=== PATIENT | female | born 1950 | race Caucasian/White ===

== ENCOUNTER 2016-07-14 16:44 | Inpatient (IN) | payer OTHER ==
[~2016-07-14] VITALS: Ht 167.6 cm; Wt 119.0 kg
[~2016-07-14 16:44] MED LIST: ALPRAZOLAM0.5 M3 PO; AUGMENTIN 875 M1 TAB PO; BACTRIM DS 8001 TAB PO; PRAVASTATIN SOD40 MG PO; SYNTHROID0.175 MG PO
[2016-07-14] MEDS ORDERED: SYNTHROID200 MCG PO (16:52)
[2016-07-14] MEDS ORDERED: ALPRAZOLAM1 M2 PO (16:52)
--- NOTE | 2016-07-14 16:52 | ED CRITICAL CARE ---
History of Present Illness General Chief Complaint: General Adult Stated Complaint: BIBA FOR SOB Source: EMS Exam Limitations: not alert/orientated Vital Signs & Intake/Output Vital Signs & Intake/Output Vital Signs Date Time Temp Pulse Resp B/P Pulse O2 O2 Flow FiO2 Ox Delivery Rate 07/19 1655 98.3 81 20 128/72 93 07/19 1549 94 Nasal 2.0L Cannula 07/19 1358 78 136/72 07/19 0808 98.5 76 20 146/72 99 Room Air 07/19 0800 94 Nasal 3.0L Cannula 07/19 0604 160/96 07/19 0001 97.4 78 20 120/70 95 Nasal 3.0L Cannula 07/19 0000 Nasal 3.0L Cannula 07/18 2101 140/82 ED Intake and Output 07/19 0000 07/18 1200 Intake Total 482 320 Output Total 175 375 Balance 307 -55 Intake, IV 82 80 Intake, Oral 400 240 Output, Urine 175 375 Allergies Coded Allergies: NO KNOWN ALLERGIES (07/29/12) Reconcile Medications Alprazolam 1 MG TABLET 1 TAB PO BID ANXIETY (Reported) Levothyroxine Sodium (Synthroid) 175 MCG TABLET 175 MCG PO DAILY AC THYROID ( Reported) Pravastatin Sodium 40 MG TABLET 1 TAB PO DAILY CHOLESTEROL (Reported) Triage Nurses Notes Reviewed? yes Onset: Abrupt Duration: SINCE LAST NIGHT Injury Environment: home Severity: severe Associated Symptoms: FEVER, CONFUSION, LETHARGY HPI: This is a 59-year-old female with history of hypothyroidism, sleep apnea who presents by EMS from home for chief complaint of lethargy and high fever. According to the last night when he came home he found her lying in bed and stated that some of the brought her home from work because she had the "flu ". She felt warm last night and then wanted to go to sleep. This morning he states she drank a glass of water went back to bed. He checked on her. Throughout the day but just prior to arrival he went to check on her and she felt very warm wasn't responsive to verbal stimuli. He states that she wasn't opening her eyes when he called her. No known sick contacts. Only has a history of hypothyroidism. No history of coronary disease. She has a history of right ankle ORIF in 2008 after which she has been suffering from chronic wound infection. He states that usually there is a slight amount of erythema around the open area but no history of cellulitis. Patient presents with farhan right lower extremity cellulitis. Past History Travel History Traveled to [place] past 21 day No Medical History Any Pertinent Medical History? see below for history Endocrine: hypothyroidism Surgical History Surgical History: RIGHT ANKLE/RIGHT LEG Psychosocial History Who do you live with Spouse Services at Home None What is your primary language Marshallese Family History Hx Contributory? No Review of Systems Review of Systems Constitutional: Reports: see HPI (UNABLE TO GIVE HISTORY), fever, malaise, weakness. Physical Exam Physical Exam General Appearance: lethargic, severe distress, obese Head: atraumatic Eyes: Bilateral: PERRL. Ears, Nose, Throat, Mouth: DRY MUCUS MEMBRANES Neck: normal inspection Respiratory: accessory muscle use, rhonchi, respiratory distress, TACHYPNEIC Cardiovascular: tachycardia Peripheral Pulses: 1+ radial (R), 1+ radial (L) Gastrointestinal: soft, non-tender, OBESE Extremities: RIGHT LOWER EXTREMITY CELLULITIS, RIGHT LATERAL ANKLE OPEN WOUND Neurologic/Psych: no motor/sensory deficits (OBTUNDED) Skin: HOT/DRY Core Measures ACS in differential dx? No CVA/TIA Diagnosis: No Severe Sepsis Present: Yes BC x2: Yes Lactic Acid x2: Yes IV ABX Broad Spectrum: Yes NS/LR Started: Yes Septic Shock Present: No Progress Differential Diagnoses I considered the following diagnoses in my evaluation of the patient: [SEPSIS, BACTEREMIA, CELLULITIS, OSTEOMYELITIS, INFECTED HARDWARE, INFLUENZA, PNEUMONIA] Plan of Care: Orders Procedure Date/time Status BASIC ELECTROLYTES PLUS BUN&CR 07/20 0600 Active Nursing Misc 07/19 UNK Active Current Medications Sig/Melisa Start time Last Medication Dose Stop Time Status Admin Nystatin 1 IZZY BID PRN 07/15 0900 AC (Mycostatin) Laboratory Tests 07/19/16 0650: Anion Gap 15, Estimated GFR > 60, BUN/Creatinine Ratio 40.0 H, CBC w Diff NO MAN DIFF REQ, RBC 4.59, MCV 88.5, MCH 29.6, RDW 13.0, MPV 9.4, Gran % 76.2 H, Lymphocytes % 12.7 L, Monocytes % 10.6 H, Eosinophils % 0.4, Basophils % 0.1, Absolute Granulocytes 7.4 H, Absolute Lymphocytes 1.2, Absolute Monocytes 1.0 H, Absolute Eosinophils 0, Absolute Basophils 0, PUBS MCHC 33.5 LABS, CULTURES, IV TYLENOL, COOLING BLANKET, CXR, DOMINGUEZ CATHETER, BROAD SPECTRUM ABX, ABG ORDERED. 6:41 PM More alert at this time. She is awake and alert and oriented 3. Saturating 92 % on 50% Venti. Blood pressure is now 103/64. Fifth and sixth normal saline bolus ordered. Minimal urine output in the Dominguez bag which is dark. CT scans are pending. Chest x-ray is negative for infiltrate. Patient will require ICU monitoring. (SARI CHASE,LORETTA) Diagnostic Imaging: Viewed by Me: Radiology Read, CT Scan. Discussed w/RAD: Radiology Read, CT Scan. Radiology Impression: PATIENT: VIGNESH MEJIA PRESENT AGE: 65 PATIENT ACCOUNT NO: [id number] : 49 LOCATION: [facility] ORDERING PHYSICIAN: LORETTA GUO MD SERVICE DATE: 07/14/16 EXAM TYPE: CAT - CT ABD & PELVIS W IV CONTRAST; CT CHEST W IV CONTRAST EXAMINATION: CT CHEST ABDOMEN PELVIS WITH CONTRAST CLINICAL INFORMATION: Fever. Elevated LFTs COMPARISON: None. TECHNIQUE: Multidetector volumetric CT imaging of the chest abdomen pelvis obtained after the administration of 95 mL of Optiray 320 intravenous contrast without immediate adverse reactions. Axial MIP volume rendering provided. Sagittal and coronal reformatted images were obtained. DLP: 1406 mGy-cm. FINDINGS: CHEST: LUNGS: There is bibasilar airspace disease most consistent with dependent atelectasis. MEDIASTINUM: The mediastinum is normal. Central vascular structures are unremarkable. No hilar or mediastinal lymphadenopathy. PERICARDIUM/PLEURA: Trace layering pleural effusions bilaterally. Moderate coronary atherosclerosis. CHEST WALL/AXILLA: Unremarkable. ABDOMEN/PELVIS: LIVER, GALLBLADDER, BILIARY TREE: Changes of diffuse hepatic steatosis. No focal lesion. Gallstones without acute inflammatory changes within the gallbladder lumen. PANCREAS: Unremarkable. SPLEEN: Unremarkable. ADRENAL GLANDS: Unremarkable. KIDNEYS AND URETERS: The kidneys are normal in size, shape , and attenuation. No hydronephrosis or hydroureter or calculi seen. No perinephric stranding. Incidental exophytic cyst right kidney laterally measuring approximately 2 cm. BLADDER: Dominguez catheter decompresses the bladder. GASTROINTESTINAL TRACT: The small and large bowel are unremarkable. The appendix is unremarkable. ABDOMINAL WALL: No hernia is demonstrated. LYMPH NODES: Mildly enlarged bilateral inguinal lymph nodes. VASCULAR: Right-sided iliac stent in place. It appears patent. PELVIC VISCERA: Prominent fundus of the uterus favoring a small fibroid. OSSEOUS STRUCTURES: Unremarkable. IMPRESSION: 1. No focal abnormality to explain patient's symptoms. No biliary or bowel pathology. Bibasilar airspace disease favoring atelectasis although early pneumonitis is not excluded. Correlate clinically. 2. Incidental gallstones. DICTATED BY: VANGIE BRITT MD DATE/TIME DICTATED:07/14/161848 USER EXPERIENCE DEVELOPER:PROMISE DATE/ TIME TRANSCRIBED:07/14/161848 CONFIDENTIAL, DO NOT COPY WITHOUT APPROPRIATE AUTHORIZATION. <Electronically signed in Other Vendor System> SIGNED BY: VANGIE BRITT MD 07/14/161902 CXR Impression: PATIENT: VIGNESH MEJIA PRESENT AGE: 65 PATIENT ACCOUNT NO: [id number] : 49 LOCATION: [facility] ORDERING PHYSICIAN: LORETTA GUO MD SERVICE DATE: 07/14/16 EXAM TYPE: RAD - XRY -PORTABLE CHEST XRAY; [id number], RIGHT EXAMINATION: XRY-PORTABLE CHEST XRAY, [id number], RIGHT CLINICAL INFORMATION: Fever, lethargy, hypoxia. Right leg cellulitis. Previous ORIF, right ankle. COMPARISON: Portable chest x- ray done 09/11/2008. TECHNIQUE: AP portable semierect view of the chest and 4 views of the right leg. FINDINGS: Chest: The patient could not hold her breath for the exposure. The prominent cardiac silhouette is unchanged. The lungs are essentially clear. Eventration of the right hemidiaphragm is present as before. Right leg: Most of the superficial cellulitis appears to involve the distal right leg and the soft tissues of the plantar aspect of the right foot. There is also soft tissue swelling of the proximal right leg anterior to the tibial tuberosity. No acute bone or joint abnormalities are seen. There is partial visualization of a healed fracture of the distal right fibula. IMPRESSION: 1. No acute bone or joint disease. Soft tissue swelling of portions of the right leg as described. 2. No definite acute disease in the chest. DICTATED BY: LASHAWN BUTTERFIELD MD DATE/TIME DICTATED:07/14/161817 USER EXPERIENCE DEVELOPER:PROMISE DATE/ TIME TRANSCRIBED:07/14/161817 CONFIDENTIAL, DO NOT COPY WITHOUT APPROPRIATE AUTHORIZATION. <Electronically signed in Other Vendor System> SIGNED BY: LASHAWN BUTTERFIELD MD 07/14/16 1828 Initial ED EKG: SINUS TACHYCARDIA, ARTIFACT Rhythm Strip: sinus tachycardia ED Sepsis Exam Date of Focused Sepsis Exam: 07/14/16 Time of Focused Sepsis Exam: 1841 Sepsis Cardiac Exam: Tachycardia Sepsis Resp Exam: Rales Sepsis Cap Refill Exam: >2 sec Sepsis Peripheral Pulse Exam: Weak Sepsis Peripheral Pulse Location: Radial Sepsis Skin Color Exam: Flushed Skin Temp/Moisture Exam: Warm/Excessively Dry Departure Departure Time of Disposition: 1856 Disposition: STILL A PATIENT Condition: Guarded Clinical Impression Primary Impression: Sepsis Secondary Impressions: Cellulitis, Hypoxia Referrals: MUNIRA MONTANO MD (PCP/Family) Departure Forms: Customer Survey General Discharge Information Admission Note Spoke With: CROW OGLESBY MDDafne Documentation of Exam: Documentation of any treatments & extenuating circumstances including Concerns Regarding Discharge (functional status, medication knowledge or non-compliance, living conditions, etc.) that warrant an admission rather than observation: [ICU MONITOR, IV ABX, MONITOR I/O, fluid resuscitation, follow-up blood and urine cultures, wound care evaluation, consider orthopedic evaluation for possible infected hardware, CPAP PLACEMENT ] Critical Care Note Critical Care Note Critical Care Time: 75-104 min BLOOD CULTURE 07/14 1648 Active TROPONIN LEVEL 07/14 1648 Active LACTIC ACID 07/14 1648 Active COMPREHENSIVE METABOLIC PANEL 07/14 1648 Active CBC WITHOUT DIFFERENTIAL 07/14 1648 Complete B-TYPE NATRIURETIC PEP (BNP) 07/14 1648 Active EKG 07/14 1648 Active US-EXT BILAT VENOUS DOPPLER 07/14 UNK Active SWALLOW EVALUATION 07/14 UNK Active TRC EVALUATION (GEN) 07/14 UNK Complete THERAPIST ORDERS 07/14 UNK Complete OXYGEN SETUP (GEN) 07/14 UNK Complete House Staff 07/14 UNK Active Lab Add-on Test 07/14 UNK Active Wound Care/Dressing 07/14 UNK Active VTE Mechanical Prophylaxis 07/14 UNK Active Vital Signs 07/14 UNK Active Seizure Precautions 07/14 UNK Active Precautions 07/14 UNK Active Isolation 07/14 UNK Active Intake & Output 07/14 UNK Active PHARMACY COMMUNICATION FORM 07/14 UNK Active PHYSICIAN CONSULT 07/14 K Active Current Medications Sig/Melisa Start time Last Medication Dose Stop Time Status Admin Pravastatin Sodium 40 MG 1700 07/15 1700 CAN (Pravachol) Pravastatin Sodium 40 MG 1700 07/15 1700 AC (Pravachol) Aspirin 81 MG DAILY 07/15 1000 CAN (Aspirin) Levothyroxine Sodium 88 MCG DAILY AC 07/15 0700 AC (Synthroid) Metronidazole 500 MG IQ8 07/15 0000 CAN (Flagyl) N/A 1 UNIT (No Carrier) Acetaminophen 1,000 MG Q6P PRN 07/14 2014 AC (Ofirmev) N/A 1 UNIT (No Carrier) Laboratory Tests 07/15/16 0625: pH 7.25 *L, pCO2 44, pO2 82, HCO3 19 L, ABG O2 Sat (Measured) 95.0 L, P-50 ( Temp Corrected) Y, Carboxyhemoglobin 0.5 L, O2 Concentration % 100%, Temperature 98.0, O2 Delivery Method NRB, Phlebotomy Draw Site LEFT RADIAL 07/15/16 0410: Anion Gap 15, Estimated GFR > 60, Glucose 126 H, Calcium 7.6 L, Phosphorus 3.5 , Magnesium 1.9, Total Bilirubin 1.2, AST 220 H, ALT 97 H, Troponin I 0.05, Albumin 3.3 L, Triglycerides 120, Cholesterol 121, LDL Cholesterol, Calc 46 L, HDL Cholesterol 51, Cholesterol/HDL Ratio 2, CBC w Diff MAN DIFF ORDERED, RBC 4.86, MCV 89.6, MCH 30.0, RDW 13.0, MPV 8.9, Gran % 95.5 H, Lymphocytes % 1.8 L, Monocytes % 2.7, Eosinophils % 0, Basophils % 0 L, Absolute Granulocytes 24.8 H, Segmented Neutrophils 79 H, Band Neutrophils 17 H, Absolute Lymphocytes 0.5 L, Lymphocytes 3 L, Monocytes 1 L, Absolute Monocytes 0.7 H, Absolute Eosinophils 0, Absolute Basophils 0, Platelet Estimate ADEQUATE, Polychromasia 1+, Ovalocytes FEW, PUBS MCHC 33.5, Fld Total RBCs Counted 100 07/14/16 2310: Urine Opiates Screen < 100.00, Methadone Screen < 40, Barbiturate Screen < 60, Ur Phencyclidine Scrn < 6.00, Amphetamines Screen < 100, U Benzodiazepines Scrn < 85, Urine Cocaine Screen < 50, Urine Cannabis Screen < 5.00 07/14/16 2300: Troponin I Cancelled 07/14/16 2200: Lactic Acid 1.0 07/14/16 2200: Anion Gap 15, Estimated GFR > 60, Glucose 175 H, Calcium 7.2 L, Phosphorus 4.5 , Magnesium 1.6, Total Bilirubin 1.5 H, AST 161 H, ALT 75 H, Troponin I 0.09, Albumin 3.2 L, Prolactin 5.0, Urinalysis LIGHT H, Urine Color YEL, Urine Clarity HAZY H, Urine pH 5.5, Ur Specific [place] 1.025, Urine Protein 100 H, Urine Ketones NEG, Urine Nitrite NEG, Urine Bilirubin NEG@ICTO, Urine Urobilinogen 0.2, Ur Leukocyte Esterase NEG, Ur Microscopic SEDIMENT EXAMINED, Urine RBC >75 H, Urine WBC 3-5 H, Ur Epithelial Cells MOD H, Hyaline Casts 1- 3 H, Urine Mucus FEW, Urine Hemoglobin LARGE H, Urine Glucose NEG 07/14/16 1712: TSH Cancelled, Free T4 Cancelled 07/14/16 1700: Anion Gap 17 H, Estimated GFR 55 L, BUN/Creatinine Ratio 23.0, Glucose 169 H, Lactic Acid 1.9, Calcium 8.9, Total Bilirubin 1.7 H, Direct Bilirubin 0.9 H, AST 119 H, ALT 72 H, Alkaline Phosphatase 90, Troponin I 0.13 *H, Pro-B- Natriuretic Pept 3370 H, Total Protein 6.4, Albumin 3.6, Globulin 2.8, Albumin/ Globulin Ratio 1.3, TSH 2.480, Free T4 1.49, PT 15.6 H, INR 1.49 H, APTT 33, CBC w Diff MAN DIFF ORDERED, RBC 4.76, MCV 87.2, MCH 29.9, RDW 12.4, MPV 9.1, Gran % 93.3 H, Lymphocytes % 3.3 L, Monocytes % 3.3, Eosinophils % 0, Basophils % 0.1, Absolute Granulocytes 22.1 H, Segmented Neutrophils 82 H, Band Neutrophils 14 H, Absolute Lymphocytes 0.8 L, Lymphocytes 2 L, Monocytes 2, Absolute Monocytes 0.8 H, Absolute Eosinophils 0, Absolute Basophils 0, Platelet Estimate ADEQUATE, Normocytic RBCs VERIFIED, Normochromic RBCs VERIFIED , PUBS MCHC 34.2, Hepatitis A IgM Ab Pending, Hep Bs Antigen Pending, Hep B Core IgM Ab Conf Pending, Hepatitis C Antibody Pending 07/14/16 1645: pH 7.44, pCO2 29 L, pO2 92, HCO3 19 L, ABG O2 Sat (Measured) 94.0 L, P-50 ( Temp Corrected) Y, Carboxyhemoglobin 0.9 L, O2 Concentration % 100%, Temperature 105.7 H, O2 Delivery Method NRB, Phlebotomy Draw Site RIGHT RADIAL Microbiology 07/14 2309 URINE ROUT: Legionella Antigen - COMP 07/14 2309 URINE ROUT: Streptococcus pneumoniae Antigen (M - COMP 07/14 2199 URINE ROUT: Urine Culture - RECD 07/14 2108 LOWER RESP: Respiratory Culture - COLB 07/14 2108 LOWER RESP: Gram Stain - COLB 07/14 2054 UPPER RESP: Surveillance Culture - RECD 07/14 2054 GI: Surveillance Culture - RECD 07/14 1929 STOOL: Clostridium difficile Toxin A & B - RECD 07/14 1929 STOOL: Stool Culture - RECD 07/14 1714 BLOOD: Blood Culture - RECD 07/14 1699 BLOOD: Blood Culture - RECD 6:41 PM More alert at this time. She is awake and alert and oriented 3. Saturating 92 % on 50% Venti. Blood pressure is now 103/64. Fifth and sixth normal saline bolus ordered. Minimal urine output in the Dominguez bag which is dark. CT scans are pending. Chest x-ray is negative for infiltrate. Patient will require ICU monitoring. (SARI CHASE,LORETTA) Diagnostic Imaging: Viewed by Me: Radiology Read, CT Scan. Discussed w/RAD: Radiology Read, CT Scan. Radiology Impression: PATIENT: VIGNESH MEJIA PRESENT AGE: 65 PATIENT ACCOUNT NO: [id number] : 49 LOCATION: [facility] ORDERING PHYSICIAN: LORETTA GUO MD SERVICE DATE: 07/14/16 EXAM TYPE: CAT - CT ABD & PELVIS W IV CONTRAST; CT CHEST W IV CONTRAST EXAMINATION: CT CHEST ABDOMEN PELVIS WITH CONTRAST CLINICAL INFORMATION: Fever. Elevated LFTs COMPARISON: None. TECHNIQUE: Multidetector volumetric CT imaging of the chest abdomen pelvis obtained after the administration of 95 mL of Optiray 320 intravenous contrast without immediate adverse reactions. Axial MIP volume rendering provided. Sagittal and coronal reformatted images were obtained. DLP: 1406 mGy-cm. FINDINGS: CHEST: LUNGS: There is bibasilar airspace disease most consistent with dependent atelectasis. MEDIASTINUM: The mediastinum is normal. Central vascular structures are unremarkable. No hilar or mediastinal lymphadenopathy. PERICARDIUM/PLEURA: Trace layering pleural effusions bilaterally. Moderate coronary atherosclerosis. CHEST WALL/AXILLA: Unremarkable. ABDOMEN/PELVIS: LIVER, GALLBLADDER, BILIARY TREE: Changes of diffuse hepatic steatosis. No focal lesion. Gallstones without acute inflammatory changes within the gallbladder lumen. PANCREAS: Unremarkable. SPLEEN: Unremarkable. ADRENAL GLANDS: Unremarkable. KIDNEYS AND URETERS: The kidneys are normal in size, shape , and attenuation. No hydronephrosis or hydroureter or calculi seen. No perinephric stranding. Incidental exophytic cyst right kidney laterally measuring approximately 2 cm. BLADDER: Dominguez catheter decompresses the bladder. GASTROINTESTINAL TRACT: The small and large bowel are unremarkable. The appendix is unremarkable. ABDOMINAL WALL: No hernia is demonstrated. LYMPH NODES: Mildly enlarged bilateral inguinal lymph nodes. VASCULAR: Right-sided iliac stent in place. It appears patent. PELVIC VISCERA: Prominent fundus of the uterus favoring a small fibroid. OSSEOUS STRUCTURES: Unremarkable. IMPRESSION: 1. No focal abnormality to explain patient's symptoms. No biliary or bowel pathology. Bibasilar airspace disease favoring atelectasis although early pneumonitis is not excluded. Correlate clinically. 2. Incidental gallstones. DICTATED BY: VANGIE BRITT MD DATE/TIME DICTATED:07/14/161848 USER EXPERIENCE DEVELOPER:PROMISE DATE/ TIME TRANSCRIBED:07/14/161848 CONFIDENTIAL, DO NOT COPY WITHOUT APPROPRIATE AUTHORIZATION. <Electronically signed in Other Vendor System> SIGNED BY: VANGIE BRITT MD 07/14/16 190 CXR Impression: PATIENT: VIGNESH MEJIA PRESENT AGE: 65 PATIENT ACCOUNT NO: [id number] : 49 LOCATION: [facility] ORDERING PHYSICIAN: LORETTA GUO MD SERVICE DATE: 07/14/16 EXAM TYPE: RAD - XRY -PORTABLE CHEST XRAY; [id number], RIGHT EXAMINATION: XRY-PORTABLE CHEST XRAY, [id number], RIGHT CLINICAL INFORMATION: Fever, lethargy, hypoxia. Right leg cellulitis. Previous ORIF, right ankle. COMPARISON: Portable chest x- ray done 09/11/2008. TECHNIQUE: AP portable semierect view of the chest and 4 views of the right leg. FINDINGS: Chest: The patient could not hold her breath for the exposure. The prominent cardiac silhouette is unchanged. The lungs are essentially clear. Eventration of the right hemidiaphragm is present as before. Right leg: Most of the superficial cellulitis appears to involve the distal right leg and the soft tissues of the plantar aspect of the right foot. There is also soft tissue swelling of the proximal right leg anterior to the tibial tuberosity. No acute bone or joint abnormalities are seen. There is partial visualization of a healed fracture of the distal right fibula. IMPRESSION: 1. No acute bone or joint disease. Soft tissue swelling of portions of the right leg as described. 2. No definite acute disease in the chest. DICTATED BY: LASHAWN BUTTERFIELD MD DATE/TIME DICTATED:07/14/161817 USER EXPERIENCE DEVELOPER:PROMISE DATE/ TIME TRANSCRIBED:07/14/161817 CONFIDENTIAL, DO NOT COPY WITHOUT APPROPRIATE AUTHORIZATION. <Electronically signed in Other Vendor System> SIGNED BY: LASHAWN BUTTERFIELD MD 07/14/161827 Initial ED EKG: SINUS TACHYCARDIA, ARTIFACT Rhythm Strip: sinus tachycardia ED Sepsis Exam Date of Focused Sepsis Exam: 07/14/16 Time of Focused Sepsis Exam: 184 Sepsis Cardiac Exam: Tachycardia Sepsis Resp Exam: Rales Sepsis Cap Refill Exam: >2 sec Sepsis Peripheral Pulse Exam: Weak Sepsis Peripheral Pulse Location: Radial Sepsis Skin Color Exam: Flushed Skin Temp/Moisture Exam: Warm/Excessively Dry Departure Departure Time of Disposition: 1856 Disposition: STILL A PATIENT Condition: Guarded Clinical Impression Primary Impression: Sepsis Secondary Impressions: Cellulitis, Hypoxia Referrals: MUNIRA MONTANO MD (PCP/Family) Departure Forms: Customer Survey General Discharge Information Admission Note Spoke With: GRETA OGLESBY MD Documentation of Exam: Documentation of any treatments & extenuating circumstances including Concerns Regarding Discharge (functional status, medication knowledge or non-compliance, living conditions, etc.) that warrant an admission rather than observation: [ICU MONITOR, IV ABX, MONITOR I/O, fluid resuscitation, follow-up blood and urine cultures, wound care evaluation, consider orthopedic evaluation for possible infected hardware, CPAP PLACEMENT ] Critical Care Note Critical Care Note Critical Care Time: 30-74 min
[2016-07-14] MEDS ORDERED: SYNTHROID175 MCG PO (16:53)
[2016-07-14 17:43] LABS: ABSOLUTE BASOPHIL COUNT 0 /CUMM (0.0-0.2); ABSOLUTE EOSINOPHIL COUNT 0 /CUMM (0.0-0.7); ABSOLUTE GRANULOCYTE CT 22.1 /CUMM (1.4-6.5); ABSOLUTE LYMPH COUNT 0.8 /CUMM (1.2-3.4); ABSOLUTE MONOCYTE COUNT 0.8 /CUMM (0.10-0.60); BASOPHIL % 0.1 % (0.0-2.0); EOSINOPHIL % 0 % (0-5); GRANULOCYTE % 93.3 % (42.2-75.2); HEMATOCRIT 41.5 % (37-47); MEAN CORPUSCULAR HGB 29.9 PG (27.0-31.0); MEAN CORPUSCULAR HGB CONC 34.2 G/DL (33.0-37.0); MEAN CORPUSCULAR VOLUME 87.2 FL (81.0-99.0); MEAN PLATELET VOLUME 9.1 FL (7.4-10.4); PLATELET COUNT 227 /CUMM (130-400); RBC DISTRIBUTION WIDTH 12.4 % (11.5-14.5); RED BLOOD CELL CT 4.76 /CUMM (4.20-5.40); WHITE BLOOD CELL COUNT 23.7 /CUMM (4.8-10.8)
[2016-07-14 17:46] LABS: PT 15.6 SEC (9.4-12.5); PTT 33 SEC (25-37)
--- NOTE | 2016-07-14 18:28 | RADIOLOGY REPORT ---
EXAMINATION: XRY-PORTABLE CHEST XRAY, [id number], RIGHT CLINICAL INFORMATION: Fever, lethargy, hypoxia. Right leg cellulitis. Previous ORIF, right ankle. COMPARISON: Portable chest x-ray done 09/11/2008. TECHNIQUE: AP portable semierect view of the chest and 4 views of the right leg. FINDINGS: Chest: The patient could not hold her breath for the exposure. The prominent cardiac silhouette is unchanged. The lungs are essentially clear. Eventration of the right hemidiaphragm is present as before. Right leg: Most of the superficial cellulitis appears to involve the distal right leg and the soft tissues of the plantar aspect of the right foot. There is also soft tissue swelling of the proximal right leg anterior to the tibial tuberosity. No acute bone or joint abnormalities are seen. There is partial visualization of a healed fracture of the distal right fibula. IMPRESSION: 1. No acute bone or joint disease. Soft tissue swelling of portions of the right leg as described. 2. No definite acute disease in the chest.
--- NOTE | 2016-07-14 19:03 | CT SCAN REPORT ---
EXAMINATION: CT CHEST ABDOMEN PELVIS WITH CONTRAST CLINICAL INFORMATION: Fever. Elevated LFTs COMPARISON: None. TECHNIQUE: Multidetector volumetric CT imaging of the chest abdomen pelvis obtained after the administration of 95 mL of Optiray 320 intravenous contrast without immediate adverse reactions. Axial MIP volume rendering provided. Sagittal and coronal reformatted images were obtained. DLP: 1406 mGy-cm. FINDINGS: CHEST: LUNGS: There is bibasilar airspace disease most consistent with dependent atelectasis. MEDIASTINUM: The mediastinum is normal. Central vascular structures are unremarkable. No hilar or mediastinal lymphadenopathy. PERICARDIUM/PLEURA: Trace layering pleural effusions bilaterally. Moderate coronary atherosclerosis. CHEST WALL/AXILLA: Unremarkable. ABDOMEN/PELVIS: LIVER, GALLBLADDER, BILIARY TREE: Changes of diffuse hepatic steatosis. No focal lesion. Gallstones without acute inflammatory changes within the gallbladder lumen. PANCREAS: Unremarkable. SPLEEN: Unremarkable. ADRENAL GLANDS: Unremarkable. KIDNEYS AND URETERS: The kidneys are normal in size, shape, and attenuation. No hydronephrosis or hydroureter or calculi seen. No perinephric stranding. Incidental exophytic cyst right kidney laterally measuring approximately 2 cm. BLADDER: Edwards catheter decompresses the bladder. GASTROINTESTINAL TRACT: The small and large bowel are unremarkable. The appendix is unremarkable. ABDOMINAL WALL: No hernia is demonstrated. LYMPH NODES: Mildly enlarged bilateral inguinal lymph nodes. VASCULAR: Right-sided iliac stent in place. It appears patent. PELVIC VISCERA: Prominent fundus of the uterus favoring a small fibroid. OSSEOUS STRUCTURES: Unremarkable. IMPRESSION: 1. No focal abnormality to explain patient's symptoms. No biliary or bowel pathology. Bibasilar airspace disease favoring atelectasis although early pneumonitis is not excluded. Correlate clinically. 2. Incidental gallstones.
--- NOTE | 2016-07-14 19:12 | History & Physical ---
DAYRON BUENO 07/14/161907: General Information and HPI MD Statement: I have seen and personally examined VIGNESH MEJIA and documented this H&P. The patient is a 65 year old F who presented with a patient stated chief complaint of [altered mental status, lethargy]. Source of Information: family Exam Limitations: clinical condition History of Present Illness: 65-year-old female with a past medical history of anxiety, hypothyroidism, sleep apnea, chronic R LE wound 2/2 right ankle bimalleolar fracture status post ORIF in 2008 c/b osteomyelitis with removal of hardware 7 weeks post surgery (F/U with Dr. Potter), ? PVD s/p stent placement (F/U with Dr. Clay and Dr. Carrillo at [facility]) hyperlipidemia, history of Phillips's palsy was brought in by EMS from home with chief complaint of lethargy and high-grade fever. Hsitory is obtained from her . According to the , she was in her USOH until yesterday morning. When he returned from work last evening, he found her lying in bed last night saying that somebody from what brought her home because she had 'flu'. She did have subjective fevers, had a glass of water and went to sleep. She also had incraesing difficulty ambulating and was increasinglyk lethargic to the point where her had everton assist her to the restroom. This morning she continued to remian sleepy and only had a glass of water before going back to bed. Of note, patient is on CPAP at night (does not F/U with a staking technician for sleep apnea), and did not use one last night. She was breathing heavly and her initially thought taht labored breathing is because she is not using her CPAP machine. When he checked on her later this afternoon around 2:30pm, she was unresponsive to verbal stimuli, and extremely warm. She had also soiled her clothes. (Of note patient does have a hx of urinary incontinence) No seizure likel activity reported by the per se. There is no history of sick contacts, recent history of sore throat, chest pain, shortness of breath, fever, chills, nausea, vomiting, alterations in bowel movements, antibiotic use, sore throat, travel history, abdominal pain, heart burn, urinarty complaints including burning micturition or increased frequency. Patient's states thats she wears compression stockings and he did not notice the erythema on her RLE until he brought her to [facility] ED today. Patient is adopted and so no family history can be obtained. She is not allergic to nay medications that he knows of. 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 osteomyleitis (patient's reports her having PICC line placed twice last one in 2012 and she rceived 6 weeks of Abx therapy). Allergies/Medications Allergies: Coded Allergies: NO KNOWN ALLERGIES (07/29/12) Home Med list Alprazolam 1 MG TABLET 1 TAB PO BID ANXIETY (Reported) Levothyroxine Sodium (Synthroid) 175 MCG TABLET 175 MCG PO DAILY AC THYROID ( Reported) Pravastatin Sodium 40 MG TABLET 1 TAB PO DAILY CHOLESTEROL (Reported) Compliance With Home Meds: UNKNOWN Past History Travel History Traveled to [place] past 21 day No Medical History Neurological: NONE EENT: NONE Cardiovascular: HYPERTENSION Respiratory: NONE Gastrointestinal: NONE Hepatic: NONE Renal: NONE Musculoskeletal: R ANKLE ORIF Psychiatric: NONE Endocrine: hypothyroidism Blood Disorders: NONE Cancer(s): 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 Psychosocial History Where do you live? Home Who Do You Live With? spouse Services at Home: None Functional Ability ADLs Independent: dressing, eating, toileting, bathing. Ambulation: independent IADLs Independent: shopping, housework, finances, food prep, telephone, transportation , medication admin. 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 Denies: chills, diaphoresis. EENTM: Denies: visual changes. Cardiovascular: Denies: chest pain, edema, orthopena, palpitations, peripheral edema, syncope. Respiratory: Denies: cough, hemoptysis, orthopnea, short of breath, sputum production, wheezing. GI: Denies: abdominal pain, constipation, diarrhea, distention, nausea, bloody stool , vomiting. Genitourinary: Denies: discharge, dysuria, frequency, hematuria, urgency. Musculoskeletal: Reports: no symptoms. Neurological/Psychological: Reports: weakness. Denies: headache, numbness, petit mal seizures, tingling, tremors, tonic-clonic seizures, unable to move lower ext, unable to move upper ext. Exam & Diagnostic Data Last 24 Hrs of Vital Signs/I&O Vital Signs Date Time Temp Pulse Resp B/P Pulse O2 O2 Flow FiO2 Ox Delivery Rate 07/14 1903 108/66 07/14 1856 90 Venti Mask 50% 07/14 1810 101.6 100 25 90/54 92 Venti Mask 40% 07/14 1739 103.2 110 34 91/55 93 Venti Mask 35% 07/14 1700 105.7 07/14 170 90 Non 100% ReBreather 07/14 1647 105.7 124 40 105/60 86 Room Air Physical Exam General Appearance Alert, Oriented X3, Mild Distress, Moderate Distress ( respiratory distress), on a partial rebreather Skin has excoriateion of her skin near the buttock area, with skin breakdown HEENT Atraumatic, PERRLA, EOMI, dry mucous membranes Neck Supple, No JVD, No LAD Cardiovascular Regular Rate, Normal S1, Normal S2, No Murmurs Lungs bilateral wheezes, no crackles, or ronchi Abdomen Normal Bowel Sounds, Soft, No Tenderness, Pennington's negative, no CVA tenderness Neurological Normal Speech, limited Extremities has bilateral edema, and a 10cm x4 cm chronic open wound located along her rifght lateral malleolus, that has erythematous margins, with erythema extending up her calf, no tenderness to palpation, not warm to touch, not draining purulent discharge. Last 24 Hrs of Labs/Edwin: Laboratory Tests 07/14/161711: TSH Cancelled, Free T4 Cancelled 07/14/161699: Anion Gap 17 H, Estimated GFR 55 L, BUN/Creatinine Ratio 23.0, Glucose 169 H, Lactic Acid 1.9, Calcium 8.9, Total Bilirubin 1.7 H, AST 119 H, ALT 72 H, Alkaline Phosphatase 90, Troponin I 0.13 *H, Cga-[id number] Pept 3370 H, Total Protein 6.4, Albumin 3.6, Globulin 2.8, Albumin/Globulin Ratio 1.3, TSH 2.480, Free T4 1.49, PT 15.6 H, INR 1.49 H, APTT 33, CBC w Diff MAN DIFF ORDERED, RBC 4.76, MCV 87.2, MCH 29.9, RDW 12.4, MPV 9.1, Gran % 93.3 H, Lymphocytes % 3.3 L, Monocytes % 3.3, Eosinophils % 0, Basophils % 0.1, Absolute Granulocytes 22.1 H, Segmented Neutrophils 82 H, Band Neutrophils 14 H, Absolute Lymphocytes 0.8 L, Lymphocytes 2 L, Monocytes 2, Absolute Monocytes 0.8 H, Absolute Eosinophils 0, Absolute Basophils 0, Platelet Estimate ADEQUATE, Normocytic RBCs VERIFIED, Normochromic RBCs VERIFIED, PUBS MCHC 34.2 07/14/16 1645: pH 7.44, pCO2 29 L, pO2 92, HCO3 19 L, ABG O2 Sat (Measured) 94.0 L, P-50 ( Temp Corrected) Y, Carboxyhemoglobin 0.9 L, O2 Concentration % 100%, Temperature 105.7 H, O2 Delivery Method NRB, Phlebotomy Draw Site RIGHT RADIAL Microbiology 07/14 171 BLOOD: Blood Culture - RECD 07/14 170 BLOOD: Blood Culture - RECD 07/14 1647 URINE ROUT: Urine Culture - ORD 07/14 1647 STOOL: Clostridium difficile Toxin A & B - ORD 07/14 1647 STOOL: Stool Culture - ORD Diagnostic Data EKG Results Sinus tachycardia HR: 114, T wave inversions in V2-V3, normal axis, AZ: 164, QTc : 469 CXR Results SERVICE DATE: 07/14/16-1652 EXAM TYPE: RAD - XRY-PORTABLE CHEST XRAY; [id number], RIGHT EXAMINATION: XRY-PORTABLE CHEST XRAY, [id number], RIGHT CLINICAL INFORMATION: Fever, lethargy, hypoxia. Right leg cellulitis. Previous ORIF, right ankle. COMPARISON: Portable chest x-ray done 09/11/2008. TECHNIQUE: AP portable semierect view of the chest and 4 views of the right leg. FINDINGS: Chest: The patient could not hold her breath for the exposure. The prominent cardiac silhouette is unchanged. The lungs are essentially clear. Eventration of the right hemidiaphragm is present as before. Right leg: Most of the superficial cellulitis appears to involve the distal right leg and the soft tissues of the plantar aspect of the right foot. There is also soft tissue swelling of the proximal right leg anterior to the tibial tuberosity. No acute bone or joint abnormalities are seen. There is partial visualization of a healed fracture of the distal right fibula. IMPRESSION: 1. No acute bone or joint disease. Soft tissue swelling of portions of the right leg as described. 2. No definite acute disease in the chest. Other Results SERVICE DATE: 07/14/16 EXAM TYPE: CAT - CT ABD & PELVIS W IV CONTRAST; CT CHEST W IV CONTRAST EXAMINATION: CT CHEST ABDOMEN PELVIS WITH CONTRAST CLINICAL INFORMATION: Fever. Elevated LFTs COMPARISON: None. TECHNIQUE: Multidetector volumetric CT imaging of the chest abdomen pelvis obtained after the administration of 95 mL of Optiray 320 intravenous contrast without immediate adverse reactions. Axial MIP volume rendering provided. Sagittal and coronal reformatted images were obtained. DLP: 1406 mGy-cm. FINDINGS: CHEST: LUNGS: There is bibasilar airspace disease most consistent with dependent atelectasis. MEDIASTINUM: The mediastinum is normal. Central vascular structures are unremarkable. No hilar or mediastinal lymphadenopathy. PERICARDIUM/PLEURA: Trace layering pleural effusions bilaterally. Moderate coronary atherosclerosis. CHEST WALL/AXILLA: Unremarkable. ABDOMEN/PELVIS: LIVER, GALLBLADDER, BILIARY TREE: Changes of diffuse hepatic steatosis. No focal lesion. Gallstones without acute inflammatory changes within the gallbladder lumen. PANCREAS: Unremarkable. SPLEEN: Unremarkable. ADRENAL GLANDS: Unremarkable. KIDNEYS AND URETERS: The kidneys are normal in size, shape, and attenuation. No hydronephrosis or hydroureter or calculi seen. No perinephric stranding. Incidental exophytic cyst right kidney laterally measuring approximately 2 cm. BLADDER: Edwards catheter decompresses the bladder. GASTROINTESTINAL TRACT: The small and large bowel are unremarkable. The appendix is unremarkable. ABDOMINAL WALL: No hernia is demonstrated. LYMPH NODES: Mildly enlarged bilateral inguinal lymph nodes. VASCULAR: Right-sided iliac stent in place. It appears patent. PELVIC VISCERA: Prominent fundus of the uterus favoring a small fibroid. OSSEOUS STRUCTURES: Unremarkable. IMPRESSION: 1. No focal abnormality to explain patient's symptoms. No biliary or bowel pathology. Bibasilar airspace disease favoring atelectasis although early pneumonitis is not excluded. Correlate clinically. 2. Incidental gallstones. Assessment/Plan Assessment: 65-year-old female with a past medical history of anxiety, hypothyroidism, sleep apnea, right ankle bimalleolar fracture status post ORIF in 2008, hyperlipidemia , history of Phillips's palsy was brought in by EMS from home with chief complaint of lethargy and high-grade fever. Vitals on admission blood pressure 105/60, tachycardic to 124, febrile with a Tmax of 105.1 saturating 86% on room air. In the ED she was put on a Ventimask as well as given normal saline boluses 4 after which her blood pressure was 90/ 54, respiratory rate 25, pulse 100, temperature 101.6 saturating 92% on 40% of 20 mass. On physical exam she is alert and oriented x3, in [id number] respiratory distress on a partial rebreather. HEENT revealed PERRLA, dry mucous membranes. Examination of the neck did not reveal any JVD or lymphadenopathy. Cardiovascular exam revealed regular rate, normal S1, S2, no murmurs appreciated. Lungs reveal bilateral wheezes with no crackles or rhonchi. Abdominal exam was unremarkable with abdomen soft, nontender, Pennington's negative, no CVA tenderness. Neuro exam was limited however her speech was normal. Examination of the lower extremities revealed bilateral edema, a 10 cm x 4 cm chronic open wound located along her right lateral malleolus with erythematous margins and urethra, extending up to her calf no tenderness to palpation, and it was not warm to touch and not draining purulent discharge. Of note patient did have skin excoriation pressing along the cheeks of her buttocks, not draining any purulent discharge. Labs were pertinent for an H&H of 14.2/41.5, normal MCV of 87.2, leukocytosis with a white blood cell count of 23,714 bands, and a normal platelet count of 227,000. Serum chemistries revealed hyponatremia with a sodium of 136, hypokalemia with potassium of 3.4, elevated anion gap of 17, BUN 23 and a creatinine of 1.0. Serum glucose was elevated to 169. Her lactic acid was 1.9. She also had transaminitis with an AST/ALT 119/72 and a total bili elevated to 1.7. Her first set of troponin was elevated at 0.13 and BNP of 3370. TSH was within normal limits at 2.48. Coags revealed an elevated INR of 1.49. An ABG was done which revealed a pH of 7.44, PCO2 of 29, PO2 of 92 on a nonrebreather. Chest x-ray did not reveal any acute disease. X-ray of the right fibula and tibia revealed no acute bone or joint disease, soft tissue swelling of the plantar aspect of the right foot as well as soft tissue swelling of the proximal right leg anterior to the tibial tuberosity. CT abdomen and pelvis and chest was done which revealed no focal abnormality, no biliary or bowel pathology and by basilar airspace disease favoring atelectasis with incidental finding of gallstones. Assesment and Plan Admit to ICU # Sepsis 2/2 RLE cellulitis versus aspiration PNA versus biliary pathology ( given elevated direct bili and incidental finding of gallstones on CAT scan, however, her Pennington's is negative and there is no history of cholecystitis-like symptoms) versus skin excoriation on her buttock area versus - Patient already received 6 units of normal saline boluses in the ED and responded well to IV fluid resuscitation. - Her blood pressure is currently stable. Continue her on IV fluids for now to maintain mean arterial pressure of 65 mmHg. If it drops further with consider placing a central line and starting her on pressors Continue her on normal saline at 125 MLS per hour. Goal MAP of 65mmHg Follow-up blood cultures 2, lower respiratory culture, urine culture. Follow-up repeat ICU upon to further evaluate transaminitis and bilirubin level. If still elevated will consider starting her on Flagyl to provide coverage for anaerobes as the patient already received vancomycin and ceftazadime in the ER. Continue on vancomycin and ceftazidime Follow-up vascular surgery recommendations. Consult placed with Dr. Clay's office. Please place wound consult in a.m. with Dr. Jamil is the patient sees her as an outpatient. #Acute hypoxemic respiratory failure Could be secondary to aspiration pneumonia given her altered mentation. Her CT reveals bibasal airspace to be which could be atelectasis though early pneumonitis cannot be differentiated. Continue to maintain her on oxygen saturations greater than 92% Of note patient is on CPAP nocturnally but does not remember her settings. For now continue her on Ventimask Her rapid flu was negative in the ER. Follow-up lower respiratory cultures and Utox CRC consult in a.m. #SARI on nocturnal CPAP - Patient does noty remember her CPAP settings, for now will continue on non- rebreather - Maintain O2 sats > 92% #NSTEMI Most likely secondary to demand ischemia Her first set of troponin was elevated at 0.13 with slight T-wave inversions in V2 to V3. Cardiology consult has been placed with Dr. Oconnor. Follow-up cardiology recommendations Follow-up troponins and EKG at 11 PM and 5 AM Follow-up echocardiogram We'll dose her with aspirin 300 mg 1 AZ for now # Meatbolic acidosis with respiratory alkalosis - 2/2 sepsis - F/U repeat LA. - Maintain on IVF @ 125mls/hr #Transaminitis - Msot likely 2/2 sepsis vs hepatititis versus biliary pathology - F/U direct bilirubin - F/U repeat BEP @ 10:00pm - If still elevated bili, will start her on Flagyl to cover for anaerobes, and consider MRCP to r/o biliary pathology - F/U hepatitis panel. # Hypokalemia - 2/2 receiving Nebs in ER - Replete with KCl - F/U repeat BEP #Hyponatremia - Most liekly 2/2 dehydration, as she does have evidence of dry mucous membrane, is hypotensive - F/U repeat BEP @ 10:00pm #Hypothyroidism - Continue on Levothyroxine. Since she is NPO, will start her on IV Levothyroxine 88mcg daily. - Switch to oral Levo 175mcg daily obnce clears swallow eval #Hx of anxiety - Continue on Alprazolam 1mg BID PRN PO # Altered mentation - Improving, most likely 2/2 sepsis - Mainatin on aspiration precautions, and NPO for now - F/U swallow eval in AM - DVT prophylaxis - On Heparin 5000IU TID SC - Diet - NPO for now - Code Status - Full Code As Ranked By This Provider Problem List: 1. Cellulitis 2. Sepsis 3. Hypoxia Core Measures/Miscellaneous Acute Coronary Syndrome ACS Diagnosis: No Cerebrovascular Accident CVA/TIA Diagnosis: No Congestive Heart Failure CHF Diagnosis: No Venous Thromboembolism VTE Risk Factors: Age > 40 VTE Prophylaxis Ordered Inpt: Pharm- Heparin No Mech VTE prophylaxis d/t: No contraindications No VTE Pharm Prophylaxis d/t: No contraindications VTE Diagnosis: No VTE Type: NONE VTE Confirmed by (Test): NONE Severe Sepsis Severe Sepsis Present: Yes BC x2: Yes Lactic Acid x2: Yes IV ABX Broad Spectrum: Yes NS/LR Started: Yes Septic Shock Septic Shock Present: No Miscellaneous Documentation Attending Case Discussed With: Dr. Stubbs Primary Care Physician: MUNIRA MONTANO MD Patient sees these Specialists Dr. Adam, Dr. Clay, Dr. Yaakov Hoskins, Dr. 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 She returned from work yesterday thinking she had the 'flu', slept all day and did not eat much. Today, she was unresponsive when he called out her name, and was incontinent of urine and stool. Patient has a chronic RLE poorly healing ulcer in the setting of previous trimalleolar fracture of Rt ankle s/p ORIF and subsequent removal of hardware ?osteomyelitis with associated PAD s/p stent. Patient follows Dr. lCay. On arrival in ER, Temp 105.7 rectally, hypoxic to 86% RA --> 94% on 60% PRB, tachycardic, hypotensive to 90/50, unresponsive to verbal stimuli but opened eyes to sternal rub with right lower extremity noted to be erythematous beyond the chronic ulcer. BP improved after 6 L normal saline to 112/56. Patient more awake, though continues to be lethargic. In moderate distress, dry mucous membranes, capillary refill time > 2 secs, skin flushed, warm and dry, Chest b/l reduced air entry with few wheezes, Heart S1S2 regular, Abd soft, no tenderness, LE: b/l 1+ edema with chronic poorly healing wound with surrounding erythema to right leg above the lateral malleolus, erythema extends up to calf, no active discharge. Labs: WBC 23.7, bands 14, INR 1.49, Na 136, K 3.4, bicarb 21, AG 17, BUN 23, creat 1.0, lactic acid 1.9, T. bili 1.7, AST 119, ALT 72, trop 0.13, proBNP 3370 , TSH/free T4 normal. ABG 7.44/29/92/19 (respiratory alkalosis with metabolic acidosis). Rapid flu negative. CXR: neg, RLE: superficial cellulitis. CT chest/ abd/pelvis: hepatic steatosis, gallstones, no biliary dilatation, bibasilar airspace disease. EKG: Sinus tachycardia with nonspecific T changes. 1. Severe sepsis with impending shock responded to IV fluids, 2/2 RLE cellulitis (in the setting of chronic nonhealing ulcer), with acute hypoxic respiratory failure 2/2 community acquired pneumonia. Biliary source possible given transaminitis, CT only shows gallstones, no cholecystitis or biliary dilatation. Transaminitis could be 2/2 sepsis. ICU admit, panculture, empiric IV ceftaz and vanco, NPO, TRC nebs, continue IV fluid maintenance to keep MAP > 65, if further drop will obtain central line and initiate levophed. Check urinalysis and urine tox screen. Obtain Vascular and Wound consult in AM. Obtain LE dopplers in AM. Check swallow eval when patient more awake, alert. Hold xanax. 2. Elevated troponin likely demand ischemia vs. NSTEMI. Aspirin once. Trend troponin, obtain Echo and cardio consult in AM. Replete electrolytes. 3. High anion gap metabolic acidosis and transaminitis 2/2 sepsis. Lactic acid normal. Trend LFTs. 4. Elevated BUN 2/2 dehydration. DVT ppx Hep SC. Full code. Discussed in detail with patient's who was at bedside. TTS > 45 mins
[2016-07-14] MEDS ORDERED: PRAVASTATIN SOD40 M2 PO (20:13)
--- NOTE | 2016-07-14 20:17 | Admission Certification ---
Admission Certification Certification Statement - As attending physician, I certify that at the time of - admission, based on clinical presentation, severity of - symptoms, need for further diagnostic testing and - therapeutic interventions, and risk of adverse outcomes - without in-hospital treatment, in my clinical assessment, - this patient requires an acute hospital stay for a minimum - of two nights or longer. I have also considered psychsocial - factors such as support system, advanced age, financial - issues, cognitive issues, and failed out-patient treatments, - past re-admission history, safety of patient, and lack of - compliance as applicable. Specific rationale supporting this admission is: Severe sepsis with impending shock, acute hypoxic respiratory failure with right lower extremity cellulitis and community acquired pneumonia. Positive troponin likely demand ischemia.
[2016-07-14 23:00] VITALS: BP 120/58
--- NOTE | 2016-07-15 04:34 | Event Note ---
Event Note Event Note: Situation: * Increased FiO2 requirements on NRB * Increased respiratory effort on NRB Brief: * In the setting of sepsis and hypotension on admission the patient received > 6 L crystalloid resuscitation * Physical exam findings: Positive for inspiratory stridor and some crackles in the basilar regions at approx 0330hrs * BP @0430hrs 126/84 which remained stable relatiev to hypotension on admission * Maintenance fluid previously at 150/hr, decreased 75/hr and eventually stopped at 0430hrs * Physical exam findings @ 0600: increased inspiratory crackles, increased respiratory effort, scant frothy sputum from her right nostril * Urine outputs: Approximately 30-50 mL an hour most of the evening * Stat CXR: Increased interstitial markings with hazy opacities most suggestive of developing interstitial edema * AB.25/40/82/19/95% on 100% NRB * Serum bicarbonate: 21L * Lactic acid from 2200 hrs. yesterday: 1.0 A/P: * DDX #1: Pulmonary congestion secondary to aggressive fluid resuscitation. In the setting of stable blood pressure, furosemide 20 mg IV 1 with noticeable increased urine output of greater than 300 mL within 15 minutes. Patient started on BiPAP: RR 24, pressures 16/6 on 100% FiO2. Monitor blood pressure, urine output * DDX #2: Metabolic acidosis. Etiology possibly right lower extremity cellulitis , currently on ceftaz and vancomycin. However, consider GI etiology. At this time the patient is not on metronidazole. Consider ID consult * Trops trended down. Echo for the AM
[2016-07-15 06:01] LABS: ABSOLUTE BASOPHIL COUNT 0 /CUMM (0.0-0.2); ABSOLUTE EOSINOPHIL COUNT 0 /CUMM (0.0-0.7); ABSOLUTE GRANULOCYTE CT 24.8 /CUMM (1.4-6.5); ABSOLUTE LYMPH COUNT 0.5 /CUMM (1.2-3.4); ABSOLUTE MONOCYTE COUNT 0.7 /CUMM (0.10-0.60); BASOPHIL % 0 % (0.0-2.0); EOSINOPHIL % 0 % (0-5); GRANULOCYTE % 95.5 % (42.2-75.2); HEMATOCRIT 43.6 % (37-47); MEAN CORPUSCULAR HGB CONC 33.5 G/DL (33.0-37.0); MEAN CORPUSCULAR VOLUME 89.6 FL (81.0-99.0); MEAN PLATELET VOLUME 8.9 FL (7.4-10.4); PLATELET COUNT 206 /CUMM (130-400); RED BLOOD CELL CT 4.86 /CUMM (4.20-5.40)
--- NOTE | 2016-07-15 06:53 | RADIOLOGY REPORT ---
EXAMINATION: XR PORTABLE CHEST CLINICAL INFORMATION: Increased respiratory effort. Crackles. COMPARISON: 07/14/2016 TECHNIQUE: Portable view of the chest was obtained. FINDINGS: Low lung volumes. Cardiac leads overlie the chest. Increased bilateral hazy opacities with prominent interstitial markings. No pneumothorax or pleural effusion. The cardiomediastinal silhouette is unchanged. IMPRESSION: Increased interstitial markings with hazy opacities most suggestive of developing interstitial edema.
--- NOTE | 2016-07-15 07:56 | Cons- CRCU ---
BRENNAN SWANN MD 07/15/16 0752: General Information and HPI Consulting Request Date of Consult: 07/15/16 Requested By: Dr. Stubbs History of Present Illness: 65 year old woman brought in by ambulance for evaluation of altered mental status and lethargy. Collateral information obtained at time of admission was obtained from her . She was reportedly in her normal state of health until morning prior to admission and was found by her appearing ill after he returned home from work. She was reportedly febrile but stayed in bed and went to sleep. THe following morning she remained lethargic and breathing heavily. She was found unresponsive by her that afternoon for which EMS services were contacted. PMHx: SARI on CPAP, Chronic lower extremity wounds, Right ankle bimalleolar fracture s/p ORIF, OM, PVD s/p stent, Phillips's Palsy, HLD, hypothyroidism, anxiety Patient was placed on bipap upon arrival to ED. Vital signs upon intial evaluation demonstrated temp 101.6-105.7, HR 100-124, RR 25-40, BP 90-108/54-66, pO2 86-93% on 100% FiO2 via nonrebreather. Physical examination demonstrated a alert woman in moderate respiratory distress with wheezing and bilateral lower extremity edema with an open erythematous wound tender to palpation without warm /drainage on her right lateral malleolus. Lab work was remarkable for WBC 23.7, BUN/Cr 23/1.0, Lactic Acid 1.9, AST/ALT 119/74, Troponin 0.13, BNP 3370, INR 1.49. ABG: pH 7.44 / CO2 29 / O2 92 / HCO3 19. EKG demonstrated Sinus tachycardia with t-wave inversion V2-V3. CXR/RLE XR were negative for acute cardiopulmonary disease but did show soft tissue swelling of RLE. CTA A/P showed gallstone. Blood/urine cultures were taken and she was given intravenous fluids and antibiotics and admitted to the ICU for further management. Today she is still maintained on bipap is alert but somnolent and forgetful. She appears to be in no acute distress. Further collateral information cannot be obtained from patient as she is still minimally altered from baseline and does not recall the events that happened. Review of system is limited as it is unclear if she understands questions, however she denies any headache, fever, chills, chest pain, palpitations, worsening shortness of breath, nausea, vomiting, or diarrhea. Allergies/Medications Allergies: Coded Allergies: NO KNOWN ALLERGIES (07/29/12) Home Med List: Alprazolam 1 MG TABLET 1 TAB PO BID ANXIETY (Reported) Levothyroxine Sodium (Synthroid) 175 MCG TABLET 175 MCG PO DAILY AC THYROID ( Reported) Pravastatin Sodium 40 MG TABLET 1 TAB PO DAILY CHOLESTEROL (Reported) Current Medications: Current Medications Sig/Melisa Start time Last Medication Dose Route Stop Time Status Admin Acetaminophen 1,000 MG Q6P PRN 07/15 1015 CAN N/A 1 UNIT IV Acetaminophen 1,000 MG Q6P PRN 07/14 2014 AC 07/15 N/A 1 UNIT IV 1025 Acetaminophen 1,000 MG ONCE ONE 07/14 1700 DC 07/14 N/A 1 UNIT IV 07/14 1714 1700 Acetaminophen 0 .STK-MED ONE 07/14 1647 DC IV Albuterol Sulfate 3 ML ONCE ONE 07/14 1845 DC 07/14 INH 07/14 1846 1856 Alprazolam 1 MG BID PRN 07/14 2030 DC PO 07/21 2029 Aspirin 81 MG DAILY 07/15 1207 AC PO Aspirin 81 MG DAILY 07/15 1000 CAN PO Aspirin 300 MG ONCE ONE 07/14 2014 DC 07/14 OH 07/14 2016 2231 Ceftazidime 1,000 MG IQ8 07/15 0000 DC 07/15 IV 0812 Ceftazidime 0 .STK-MED ONE 07/14 1719 DC .ROUTE Ceftazidime 1,000 MG ONCE ONE 07/14 1700 DC 07/14 IV 07/14 1701 1728 Furosemide 20 MG ONCE ONE 07/15 1045 DC 07/15 IV 07/15 1046 1057 Furosemide 20 MG ONCE ONE 07/15 0630 DC 07/15 IV 07/15 0631 0632 Heparin Sodium 5,000 UNIT Q8 07/14 2200 AC 07/15 (Porcine) SC 0632 Ipratropium [place] 2.5 ML ONCE ONE 07/14 1845 DC 07/14 INH 07/14 1846 1856 Ketorolac 15 MG ONCE ONE 07/14 1815 DC 07/14 Tromethamine IV 07/14 1816 1847 Ketorolac 0 .STK-MED ONE 07/14 1812 DC Tromethamine .ROUTE Levothyroxine Sodium 88 MCG DAILY AC 07/15 0700 AC 07/15 IV 1025 Metronidazole 500 MG IQ8 07/15 0000 CAN N/A 1 UNIT IV Nystatin 1 IZZY BID PRN 07/15 0900 AC TOP Potassium Chloride 10 MEQ Q1H 07/14 2115 DC 07/14 IV 07/14 2316 2337 Pravastatin Sodium 40 MG 1700 07/15 1700 CAN PO Pravastatin Sodium 40 MG 1700 07/15 1700 CAN PO Sodium Chloride 1,000 ML Q8H 07/14 2000 DC 07/14 IV 2137 Sodium Chloride 1,000 ML BOLUS ONE 07/14 1845 DC 07/14 IV 07/14 1944 1847 Sodium Chloride 1,000 ML BOLUS ONE 07/14 1845 DC 07/14 IV 07/14 1944 1847 Sodium Chloride 1,000 ML BOLUS ONE 07/14 1745 DC 07/14 IV 07/14 1844 1800 Sodium Chloride 1,000 ML BOLUS ONE 07/14 1745 DC 07/14 IV 07/14 1844 1800 Sodium Chloride 1,000 ML BOLUS ONE 07/14 1700 DC 07/14 IV 07/14 1759 1700 Sodium Chloride 1,000 ML BOLUS ONE 07/14 1700 DC 07/14 IV 07/14 1759 1700 Vancomycin HCl 1,000 MG Q12H 07/15 0500 DC 07/15 Dextrose/Water 250 ML IV 0513 Vancomycin HCl 1,000 MG Q12 07/14 2200 DC Dextrose/Water 250 ML IV Vancomycin HCl 0 .STK-MED ONE 07/14 1718 DC .ROUTE Vancomycin HCl 1,000 MG ONCE ONE 07/14 1700 DC 07/14 Dextrose/Water 250 ML IV 07/14 1759 1728 Review of Systems Review of Systems Constitutional: Reports: see HPI. 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 Psychosocial History Where Do You Live? Home Who Do You Live With? spouse Services at Home: None Smoking Status: Unknown If Ever Smoked Functional Ability ADLs Independent: dressing, eating, toileting, bathing. Ambulation: independent IADLs Independent: shopping, housework, finances, food prep, telephone, transportation , medication admin. Employment History Employment: Employed Profession/Employer: [employer] as a pay roll Exam & Diagnostic Data Last 24 Hrs of Vital Signs/I&O Vital Signs Date Time Temp Pulse Resp B/P Pulse O2 O2 Flow FiO2 Ox Delivery Rate 07/15 0903 88 97 07/15 0800 98 BIPAP 100% 07/15 08 100.7 129 34 134/82 94 BIPAP 100% 07/15 0649 133 97 07/15 0400 91 Non 100% ReBreather 07/15 0310 92 Non 100% ReBreather 07/15 0000 93 Part 60% ReBreather 07/14 2300 95.9 99 28 120/58 91 Part 60% ReBreather 07/14 2227 Part 60% ReBreather 07/14 2040 93 Part 60% ReBreather 07/14 1938 97.2 96 24 112/56 94 Non 60% ReBreather 07/14 1915 98.5 98 25 104/61 93 Non 60% ReBreather 07/14 1903 108/66 07/14 1856 90 Venti Mask 50% 07/14 1810 101.6 100 25 90/54 92 Venti Mask 40% 07/14 1739 103.2 110 34 91/55 93 Venti Mask 35% 07/14 1700 105.7 07/14 1700 90 Non 100% ReBreather 07/14 1647 105.7 124 40 105/60 86 Room Air Intake & Output 07/15 1600 07/15 0800 07/15 0000 Intake Total 734 6190 Output Total 340 310 Balance 394 5880 Intake, IV 734 6190 Intake, Oral 0 Number 1 0 Bowel Movements Output, Urine 340 310 Patient 122.98 kg 122.98 kg Weight Physical Exam Other Physical Findings: General - well-developed, obese female in mild respiratory distress HEENT - NCAT, PERRL, EOMI, anicteric sclera Cardio - S1, S2 w/o murmurs/gallops/rubs Resp -rhonchi heard in bibasilar lung talbert, w/o crackles/wheezing GI - soft, Non-tender, non-distended , Bowel sounds present Neuro - Awake and conversive but lethargic and forgetful, CN II - XII grossly intact Extremities - RLE wound wrapped in gauze without obvious drainage, surrounding erythema and warmth Last 48 Hrs of Labs/Edwin: Laboratory Tests 07/15/16 0854: pH 7.35, pCO2 34 L, pO2 134 H, HCO3 18 L, ABG O2 Sat (Measured) 98.0, P-50 ( Temp Corrected) Y, Carboxyhemoglobin 0.8 L, O2 Concentration % 100%, Temperature 100.7 H, Respiration Rate 24, O2 Delivery Method VISION, Vent Mode ST, Expiratory Pressure 6, Inspiratory Pressure 18, Phlebotomy Draw Site RIGHT RADIAL 07/15/16 0625: pH 7.25 *L, pCO2 44, pO2 82, HCO3 19 L, ABG O2 Sat (Measured) 95.0 L, P-50 ( Temp Corrected) Y, Carboxyhemoglobin 0.5 L, O2 Concentration % 100%, Temperature 98.0, O2 Delivery Method NRB, Phlebotomy Draw Site LEFT RADIAL 07/15/16 0410: Anion Gap 15, Estimated GFR > 60, Glucose 126 H, Calcium 7.6 L, Phosphorus 3.5 , Magnesium 1.9, Total Bilirubin 1.2, AST 220 H, ALT 97 H, Troponin I 0.05, Albumin 3.3 L, Triglycerides 120, Cholesterol 121, LDL Cholesterol, Calc 46 L, HDL Cholesterol 51, Cholesterol/HDL Ratio 2, CBC w Diff MAN DIFF ORDERED, RBC 4.86, MCV 89.6, MCH 30.0, RDW 13.0, MPV 8.9, Gran % 95.5 H, Lymphocytes % 1.8 L, Monocytes % 2.7, Eosinophils % 0, Basophils % 0 L, Absolute Granulocytes 24.8 H, Segmented Neutrophils 79 H, Band Neutrophils 17 H, Absolute Lymphocytes 0.5 L, Lymphocytes 3 L, Monocytes 1 L, Absolute Monocytes 0.7 H, Absolute Eosinophils 0, Absolute Basophils 0, Platelet Estimate ADEQUATE, Polychromasia 1+, Ovalocytes FEW, PUBS MCHC 33.5, Fld Total RBCs Counted 100 07/14/16 2310: Urine Opiates Screen < 100.00, Methadone Screen < 40, Barbiturate Screen < 60, Ur Phencyclidine Scrn < 6.00, Amphetamines Screen < 100, U Benzodiazepines Scrn < 85, Urine Cocaine Screen < 50, Urine Cannabis Screen < 5.00 07/14/16 2300: Troponin I Cancelled 07/14/16 2200: Lactic Acid 1.0 07/14/16 2200: Anion Gap 15, Estimated GFR > 60, Glucose 175 H, Calcium 7.2 L, Phosphorus 4.5 , Magnesium 1.6, Total Bilirubin 1.5 H, AST 161 H, ALT 75 H, Troponin I 0.09, Albumin 3.2 L, Prolactin 5.0, Urinalysis LIGHT H, Urine Color YEL, Urine Clarity HAZY H, Urine pH 5.5, Ur Specific [place] 1.025, Urine Protein 100 H, Urine Ketones NEG, Urine Nitrite NEG, Urine Bilirubin NEG@ICTO, Urine Urobilinogen 0.2, Ur Leukocyte Esterase NEG, Ur Microscopic SEDIMENT EXAMINED, Urine RBC >75 H, Urine WBC 3-5 H, Ur Epithelial Cells MOD H, Hyaline Casts 1- 3 H, Urine Mucus FEW, Urine Hemoglobin LARGE H, Urine Glucose NEG 07/14/16 1825: Virus Culture Pending 07/14/16 1712: TSH Cancelled, Free T4 Cancelled 07/14/16 1700: Anion Gap 17 H, Estimated GFR 55 L, BUN/Creatinine Ratio 23.0, Glucose 169 H, Lactic Acid 1.9, Calcium 8.9, Total Bilirubin 1.7 H, Direct Bilirubin 0.9 H, AST 119 H, ALT 72 H, Alkaline Phosphatase 90, Troponin I 0.13 *H, Pro-B- Natriuretic Pept 3370 H, Total Protein 6.4, Albumin 3.6, Globulin 2.8, Albumin/ Globulin Ratio 1.3, TSH 2.480, Free T4 1.49, PT 15.6 H, INR 1.49 H, APTT 33, CBC w Diff MAN DIFF ORDERED, RBC 4.76, MCV 87.2, MCH 29.9, RDW 12.4, MPV 9.1, Gran % 93.3 H, Lymphocytes % 3.3 L, Monocytes % 3.3, Eosinophils % 0, Basophils % 0.1, Absolute Granulocytes 22.1 H, Segmented Neutrophils 82 H, Band Neutrophils 14 H, Absolute Lymphocytes 0.8 L, Lymphocytes 2 L, Monocytes 2, Absolute Monocytes 0.8 H, Absolute Eosinophils 0, Absolute Basophils 0, Platelet Estimate ADEQUATE, Normocytic RBCs VERIFIED, Normochromic RBCs VERIFIED , PUBS MCHC 34.2, Hepatitis A IgM Ab NONREACTIVE, Hep Bs Antigen NONREACTIVE, Hep B Core IgM Ab Conf NONREACTIVE, Hepatitis C Antibody NONREACTIVE 07/14/16 1645: pH 7.44, pCO2 29 L, pO2 92, HCO3 19 L, ABG O2 Sat (Measured) 94.0 L, P-50 ( Temp Corrected) Y, Carboxyhemoglobin 0.9 L, O2 Concentration % 100%, Temperature 105.7 H, O2 Delivery Method NRB, Phlebotomy Draw Site RIGHT RADIAL Microbiology 07/14 2309 URINE ROUT: Legionella Antigen - COMP 07/14 2309 URINE ROUT: Streptococcus pneumoniae Antigen (M - COMP Assessment/Plan Impression/Plan: 65 year old woman with multiple medical problems significant for right ankle bimalleolar fracture (2008) s/p surgical pinning complicated with osteomyelitis and PVD s/p stenting with chronic lower extremity wounds brought in by ambulance for evaluation of altered mental status and respiratory distress. Problem List: -Acute hypoxic respiratory failure -Severe Sepsis -Right Lower Extremity Cellulitis -Elevated tropomoins, most likely demand ischemia -Metabolic acidosis, improving -Transaminitis Respitory/Infectious Disease: Patient with a history of obstructive sleep apnea on CPAP seen for evaluation of altered mental status. Found to be in moderate respiratory distress and hypoxic. Respiratory distress most likely due to sepsis secondary to right lower extremity cellulitis/possible osteomyelitis. Patient required 6L normal saline fluid resuscitation. -Maintain supplemental oxygen, keep above 92% -Antibiotics per ID consult -Podiatry consult -Wound Care consult -Vascular Surgery consult -Infectious Disease consult -Follow up cultures & sensitivities Cardiovascular: Patient with a history of peripheral vascular disease s/p stents. Troponins and EKG were negative time three. Echocardiogram was ordered. -Aspirin 81mg PO Daily -Lasix as tolerated for BP for relative hypervolemia -Cardiology Consult -Follow up echo Diet - NPO, swallow evaluation in morning DVT PPx - Heparing SC Code Status - FULL CODE Consult Acknowledgment - Thank you for your consult request. RYAN ALVARES MD 07/15/16 1029: Assessment/Plan Other Findings/Comments: Ryan Leos M.D. have examined this patient, reviewed available EMR data, personally reviewed images, discussed with resident/PA/POULTRY HUSBANDRY WORKER, discussed management plan with housestaff and nursing staff, discussed managment plan all of healthcare providers, discussed management plan with patient and/or family, agreed with resident/PA/POULTRY HUSBANDRY WORKER. The past history and parts of the chart have been autopopulated. Impression 65 year old woman * Dyspnea * Lethargy * Unresponsiveness, now improved * Hyperthermia * Acute hypoxemic respiratory failure * sepsis unclear etiology, possibly soft tissue infection Plan Respiratory - o2 supplementation, will need diuresis if bp ok ID - ID consultation, broad coverage, possible soft tissue infection CVS - ECHO, monitor hemodynamics Heme - monitor cbc, coags Metabolic - ins/outs, creatinine, electrolytes Alimentary - NPO Neuro - no active issues DVT prophylaxis at all times TTS 45min Consult Acknowledgment - Thank you for your consult request.
[2016-07-15 08:00] VITALS: BP 134/82
--- NOTE | 2016-07-15 10:52 | Cons- Cardiology ---
General Information and HPI Consulting Request Date of Consult: 07/15/16 Requested By: RENY CHASE,KENNYKSHMI Reason for Consult: Elevated troponin Source of Information: patient, old records History of Present Illness: This is a 65-year-old female with a past medical history of obesity, sleep apnea , venous insufficiency, reported PVD, hypothyroidism, chronic nonhealing wound, and hyperlipidemia who was brought to [facility] with a chief complaint of lethargy/altered mental status. Patient is responsive but limited historian at this time and the majority of the HPI was obtained from the medical record. Apparently the patient's noticed that she was more lethargic and also had some labored breathing. Subjective fevers the also reported. Some increased respiratory distress early this morning and was placed on BiPAP. At the time of my interview she seemed reasonably comfortable on BiPAP and denied chest pain or persistent dyspnea. She did appear mildly confused. Allergies/Medications Allergies: Coded Allergies: NO KNOWN ALLERGIES (07/29/12) Home Med List: Alprazolam 1 MG TABLET 1 TAB PO BID ANXIETY (Reported) Levothyroxine Sodium (Synthroid) 175 MCG TABLET 175 MCG PO DAILY AC THYROID ( Reported) Pravastatin Sodium 40 MG TABLET 1 TAB PO DAILY CHOLESTEROL (Reported) Current Medications: Current Medications Sig/Melisa Start time Last Medication Dose Route Stop Time Status Admin Acetaminophen 1,000 MG Q6P PRN 07/15 1015 CAN N/A 1 UNIT IV Acetaminophen 1,000 MG Q6P PRN 07/14 2014 AC 07/15 N/A 1 UNIT IV 1025 Acetaminophen 1,000 MG ONCE ONE 07/14 1700 DC 07/14 N/A 1 UNIT IV 07/14 1714 1700 Acetaminophen 0 .STK-MED ONE 07/14 1647 DC IV Albuterol Sulfate 3 ML ONCE ONE 07/14 1845 DC 07/14 INH 07/14 1846 1856 Alprazolam 1 MG BID PRN 07/14 2030 DC PO 07/21 2029 Aspirin 81 MG DAILY 07/15 1000 CAN PO Aspirin 300 MG ONCE ONE 07/14 2014 DC 07/14 AL 07/14 2016 2231 Ceftazidime 1,000 MG IQ8 07/15 0000 AC 07/15 IV 0812 Ceftazidime 0 .STK-MED ONE 07/14 1719 DC .ROUTE Ceftazidime 1,000 MG ONCE ONE 07/14 1700 DC 07/14 IV 07/14 1701 1728 Furosemide 20 MG ONCE ONE 07/15 0630 DC 07/15 IV 07/15 0631 0632 Heparin Sodium 5,000 UNIT Q8 07/14 2200 AC 07/15 (Porcine) SC 0632 Ipratropium [place] 2.5 ML ONCE ONE 07/14 1845 DC 07/14 INH 07/14 1846 1856 Ketorolac 15 MG ONCE ONE 07/14 1815 DC 07/14 Tromethamine IV 07/14 181 1847 Ketorolac 0 .STK-MED ONE 07/14 1812 DC Tromethamine .ROUTE Levothyroxine Sodium 88 MCG DAILY AC 07/15 0700 AC 07/15 IV 1025 Metronidazole 500 MG IQ8 07/15 0000 CAN N/A 1 UNIT IV Nystatin 1 IZZY BID PRN 07/15 0900 AC TOP Potassium Chloride 10 MEQ Q1H 07/14 2115 DC 07/14 IV 07/14 2316 2337 Pravastatin Sodium 40 MG 1700 07/15 1700 CAN PO Pravastatin Sodium 40 MG 1700 07/15 1700 AC PO Sodium Chloride 1,000 ML Q8H 07/14 2000 DC 07/14 IV 2137 Sodium Chloride 1,000 ML BOLUS ONE 07/14 1845 DC 07/14 IV 07/14 1944 1847 Sodium Chloride 1,000 ML BOLUS ONE 07/14 1845 DC 07/14 IV 07/14 1944 1847 Sodium Chloride 1,000 ML BOLUS ONE 07/14 1745 DC 07/14 IV 07/14 1844 1800 Sodium Chloride 1,000 ML BOLUS ONE 07/14 1745 DC 07/14 IV 07/14 1844 1800 Sodium Chloride 1,000 ML BOLUS ONE 07/14 1700 DC 07/14 IV 07/14 1759 1700 Sodium Chloride 1,000 ML BOLUS ONE 07/14 1700 DC 07/14 IV 07/14 1759 1700 Vancomycin HCl 1,000 MG Q12H 07/15 0500 AC 07/15 Dextrose/Water 250 ML IV 0513 Vancomycin HCl 1,000 MG Q12 07/14 2200 DC Dextrose/Water 250 ML IV Vancomycin HCl 0 .STK-MED ONE 07/14 1718 DC .ROUTE Vancomycin HCl 1,000 MG ONCE ONE 07/14 1700 DC 07/14 Dextrose/Water 250 ML IV 07/14 1759 1728 Review of Systems Review of Systems: Limited due to increased mental status, currently on BiPAP Past History Travel History Traveled to [place] past 21 day No Medical History Blood Transfusion Hx: No Neurological: NONE EENT: NONE Cardiovascular: HYPERTENSION Respiratory: obstructive sleep apnea Gastrointestinal: NONE Hepatic: NONE Renal: NONE Musculoskeletal: R ANKLE ORIF Psychiatric: NONE Endocrine: hypothyroidism Blood Disorders: NONE Cancer(s): NONE 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 Psychosocial History Where Do You Live? Home Who Do You Live With? spouse Services at Home: None Smoking Status: Unknown If Ever Smoked Functional Ability ADLs Independent: dressing, eating, toileting, bathing. Ambulation: independent IADLs Independent: shopping, housework, finances, food prep, telephone, transportation , medication admin. Employment History Employment: Employed Profession/Employer [employer] as a pay roll Exam & Diagnostic Data Vital Signs and I&O Vital Signs Date Time Temp Pulse Resp B/P Pulse O2 O2 Flow FiO2 Ox Delivery Rate 07/15 1033 97 BIPAP 100% 07/15 1025 101.3 07/15 0903 88 97 07/15 0800 98 BIPAP 100% 07/15 08 100.7 129 34 134/82 94 BIPAP 100% 07/15 0649 133 97 07/15 0400 91 Non 100% ReBreather 07/15 0310 92 Non 100% ReBreather 07/15 0000 93 Part 60% ReBreather 07/14 2300 95.9 99 28 120/58 91 Part 60% ReBreather 07/14 2227 Part 60% ReBreather 07/14 2040 93 Part 60% ReBreather 07/14 1938 97.2 96 24 112/56 94 Non 60% ReBreather 07/14 1915 98.5 98 25 104/61 93 Non 60% ReBreather 07/14 1903 108/66 07/14 1856 90 Venti Mask 50% 07/14 1810 101.6 100 25 90/54 92 Venti Mask 40% 07/14 1739 103.2 110 34 91/55 93 Venti Mask 35% 07/14 1700 105.7 07/14 1700 90 Non 100% ReBreather 07/14 1647 105.7 124 40 105/60 86 Room Air Intake & Output 07/15 0807/15 0000 07/14 1600 07/14 0800 07/14 0000 Intake Total 734 6190 Output Total 340 310 Balance 394 5880 Intake, IV 734 6190 Intake, Oral 0 Number 1 0 Bowel Movements Output, Urine 340 310 Patient 271 lb 271 lb Weight Physical Exam: General: no apparent distress. Obese. On BiPAP. Eyes: No obvious scleral icterus. HEENT: No jugular venous distention or abnormal jugular venous pulsations. Cardiovascular: Normal intensity S1/S2. Regular tachycardia. Respiratory: Decreased air entry bilaterally Abdomen: no guarding or rebound tenderness. Musculoskeletal: No cyanosis noted, right lower extremity bandage noted with trace edema Skin: Right lower extremity erythema noted, warm Neurologic: Limited exam Lymph: No gross lymphadenopathy. Labs/Edwin Results: Laboratory Tests 07/15 07/15 0854 0625 Blood Gas pH (7.35 - 7.45 PH) 7.35 7.25 *L pCO2 (35 - 45 TORR) 34 L 44 pO2 (80 - 100 TORR) 134 H 82 HCO3 (21 - 28 MEQ/L) 18 L 19 L ABG O2 Sat (Measured) (>96.0 %) 98.0 95.0 L P-50 (Temp Corrected) Y Y Carboxyhemoglobin (1.5 - 5.0 %) 0.8 L 0.5 L O2 Concentration % 100% 100% Temperature (97.0 - 100.0 FARH) 100.7 H 98.0 Respiration Rate (BPM) 24 O2 Delivery Method VISION NRB Vent Mode ST Expiratory Pressure (CM H2O P) 6 Inspiratory Pressure (CM H2O P) 18 Miscellaneous Phlebotomy Draw Site RIGHT RADIAL LEFT RADIAL 07/15 07/14 07/14 0410 2310 2300 Chemistry Sodium (137 - 145 mmol/L) 143 Potassium (3.5 - 5.1 mmol/L) 4.1 Chloride (98 - 107 mmol/L) 107 Carbon Dioxide (22 - 30 mmol/L) 21 L Anion Gap (5 - 16) 15 BUN (7 - 17 mg/dL) 21 H Creatinine (0.5 - 1.0 mg/dL) 0.8 Estimated GFR (>60 ml/min) > 60 Glucose (65 - 99 mg/dL) 126 H Calcium (8.4 - 10.2 mg/dL) 7.6 L Phosphorus (2.5 - 4.5 mg/dL) 3.5 Magnesium (1.6 - 2.3 mg/dL) 1.9 Total Bilirubin (0.2 - 1.3 mg/dL) 1.2 AST (14 - 36 U/L) 220 H ALT (9 - 52 U/L) 97 H Troponin I (< 0.11 ng/ml) 0.05 Cancelled Albumin (3.5 - 5.0 g/dL) 3.3 L Triglycerides (<150 mg/dL) 120 Cholesterol (<200 MG/DL) 121 LDL Cholesterol, Calc (65 - 129 mg/dL) 46 L HDL Cholesterol (40 - 60 mg/dL) 51 Cholesterol/HDL Ratio (0.00 - 4.23 %) 2 Hematology CBC w Diff MAN DIFF ORDERED WBC (4.8 - 10.8 /CUMM) 26.0 H RBC (4.20 - 5.40 /CUMM) 4.86 Hgb (12.0 - 16.0 G/DL) 14.6 Hct (37 - 47 %) 43.6 MCV (81.0 - 99.0 FL) 89.6 MCH (27.0 - 31.0 PG) 30.0 RDW (11.5 - 14.5 %) 13.0 Plt Count (130 - 400 /CUMM) 206 MPV (7.4 - 10.4 FL) 8.9 Gran % (42.2 - 75.2 %) 95.5 H Lymphocytes % (20.5 - 51.1 %) 1.8 L Monocytes % (1.7 - 9.3 %) 2.7 Eosinophils % (0 - 5 %) 0 Basophils % (0.0 - 2.0 %) 0 L Absolute Granulocytes (1.4 - 6.5 /CUMM) 24.8 H Segmented Neutrophils (42.2 - 75.2 %) 79 H Band Neutrophils (0.0 - 5.0 %) 17 H Absolute Lymphocytes (1.2 - 3.4 /CUMM) 0.5 L Lymphocytes (20.5 - 51.1 %) 3 L Monocytes (1.7 - 9.3 %) 1 L Absolute Monocytes (0.10 - 0.60 /CUMM) 0.7 H Absolute Eosinophils (0.0 - 0.7 /CUMM) 0 Absolute Basophils (0.0 - 0.2 /CUMM) 0 Platelet Estimate (ADEQUATE) ADEQUATE Polychromasia 1+ Ovalocytes FEW PUBS MCHC (33.0 - 37.0 G/DL) 33.5 Other Body Source Fld Total RBCs Counted (%) 100 Toxicology Urine Opiates Screen (>2000 NG/ML) < 100.00 Methadone Screen (>300 NG/ML) < 40 Barbiturate Screen (>200 NG/ML) < 60 Ur Phencyclidine Scrn (>25 NG/ML) < 6.00 Amphetamines Screen (>1000 NG/ML) < 100 U Benzodiazepines Scrn (>200 NG/ML) < 85 Urine Cocaine Screen (>300 NG/ML) < 50 Urine Cannabis Screen (>50 NG/ML) < 5.00 07/14 07/14 07/14 2200 2200 1825 Chemistry Sodium (137 - 145 mmol/L) 139 Potassium (3.5 - 5.1 mmol/L) 3.6 Chloride (98 - 107 mmol/L) 105 Carbon Dioxide (22 - 30 mmol/L) 19 L Anion Gap (5 - 16) 15 BUN (7 - 17 mg/dL) 20 H Creatinine (0.5 - 1.0 mg/dL) 0.8 Estimated GFR (>60 ml/min) > 60 Glucose (65 - 99 mg/dL) 175 H Lactic Acid (0.7 - 2.1 mmol/L) 1.0 Calcium (8.4 - 10.2 mg/dL) 7.2 L Phosphorus (2.5 - 4.5 mg/dL) 4.5 Magnesium (1.6 - 2.3 mg/dL) 1.6 Total Bilirubin (0.2 - 1.3 mg/dL) 1.5 H AST (14 - 36 U/L) 161 H ALT (9 - 52 U/L) 75 H Troponin I (< 0.11 ng/ml) 0.09 Albumin (3.5 - 5.0 g/dL) 3.2 L Prolactin (3.0 - 18.6 ng/mL) 5.0 Serology Virus Culture Pending Urines Urinalysis LIGHT H Urine Color (YEL,AMB,STR) YEL Urine Clarity (CLEAR) HAZY H Urine pH (5.0 - 8.0) 5.5 Ur Specific [place] (1.001 - 1.035) 1.025 Urine Protein (NEG,<30 MG/DL) 100 H Urine Ketones (NEG) NEG Urine Nitrite (NEG) NEG Urine Bilirubin (NEG) NEG@ICTO Urine Urobilinogen (0.1 - 1.0 EU/dl) 0.2 Ur Leukocyte Esterase (NEG) NEG Ur Microscopic SEDIMENT EXAMINED Urine RBC (0 - 5 /HPF) >75 H Urine WBC (0 - 2 /HPF) 3-5 H Ur Epithelial Cells (NONE,FEW) MOD H Hyaline Casts (0/LPF) 1-3 H Urine Mucus (FEW,NONE) FEW Urine Hemoglobin (NEG) LARGE H Urine Glucose (N MG/DL) NEG 07/14 07/14 1712 1700 Chemistry Sodium (137 - 145 mmol/L) 136 L Potassium (3.5 - 5.1 mmol/L) 3.4 L Chloride (98 - 107 mmol/L) 99 Carbon Dioxide (22 - 30 mmol/L) 21 L Anion Gap (5 - 16) 17 H BUN (7 - 17 mg/dL) 23 H Creatinine (0.5 - 1.0 mg/dL) 1.0 Estimated GFR (>60 ml/min) 55 L BUN/Creatinine Ratio (7 - 25 %) 23.0 Glucose (65 - 99 mg/dL) 169 H Lactic Acid (0.7 - 2.1 mmol/L) 1.9 Calcium (8.4 - 10.2 mg/dL) 8.9 Total Bilirubin (0.2 - 1.3 mg/dL) 1.7 H Direct Bilirubin (< 0.4 mg/dL) 0.9 H AST (14 - 36 U/L) 119 H ALT (9 - 52 U/L) 72 H Alkaline Phosphatase (<127 U/L) 90 Troponin I (< 0.11 ng/ml) 0.13 *H [id number] Pept (<125 pg/mL) 3370 H Total Protein (6.3 - 8.2 g/dL) 6.4 Albumin (3.5 - 5.0 g/dL) 3.6 Globulin (1.9 - 4.2 gm/dL) 2.8 Albumin/Globulin Ratio (1.1 - 2.2 %) 1.3 TSH (0.270 - 4.200 uIU/mL) Cancelled 2.480 Free T4 (0.78 - 2.44 ng/dL) Cancelled 1.49 Coagulation PT (9.4 - 12.5 SEC) 15.6 H INR (0.90 - 1.19) 1.49 H APTT (25 - 37 SEC) 33 Hematology CBC w Diff MAN DIFF ORDERED WBC (4.8 - 10.8 /CUMM) 23.7 H RBC (4.20 - 5.40 /CUMM) 4.76 Hgb (12.0 - 16.0 G/DL) 14.2 Hct (37 - 47 %) 41.5 MCV (81.0 - 99.0 FL) 87.2 MCH (27.0 - 31.0 PG) 29.9 RDW (11.5 - 14.5 %) 12.4 Plt Count (130 - 400 /CUMM) 227 MPV (7.4 - 10.4 FL) 9.1 Gran % (42.2 - 75.2 %) 93.3 H Lymphocytes % (20.5 - 51.1 %) 3.3 L Monocytes % (1.7 - 9.3 %) 3.3 Eosinophils % (0 - 5 %) 0 Basophils % (0.0 - 2.0 %) 0.1 Absolute Granulocytes (1.4 - 6.5 /CUMM) 22.1 H Segmented Neutrophils (42.2 - 75.2 %) 82 H Band Neutrophils (0.0 - 5.0 %) 14 H Absolute Lymphocytes (1.2 - 3.4 /CUMM) 0.8 L Lymphocytes (20.5 - 51.1 %) 2 L Monocytes (1.7 - 9.3 %) 2 Absolute Monocytes (0.10 - 0.60 /CUMM) 0.8 H Absolute Eosinophils (0.0 - 0.7 /CUMM) 0 Absolute Basophils (0.0 - 0.2 /CUMM) 0 Platelet Estimate (ADEQUATE) ADEQUATE Normocytic RBCs VERIFIED Normochromic RBCs VERIFIED PUBS MCHC (33.0 - 37.0 G/DL) 34.2 Serology Hepatitis A IgM Ab (NONREACTIVE) NONREACTIVE Hep Bs Antigen (NONREACTIVE) NONREACTIVE Hep B Core IgM Ab Conf (NONREACTIVE) NONREACTIVE Hepatitis C Antibody (NONREACTIVE) NONREACTIVE 07/14 215 Blood Gas pH (7.35 - 7.45 PH) 7.44 pCO2 (35 - 45 TORR) 29 L pO2 (80 - 100 TORR) 92 HCO3 (21 - 28 MEQ/L) 19 L ABG O2 Sat (Measured) (>96.0 %) 94.0 L P-50 (Temp Corrected) Y Carboxyhemoglobin (1.5 - 5.0 %) 0.9 L O2 Concentration % 100% Temperature (97.0 - 100.0 FARH) 105.7 H O2 Delivery Method NRB Miscellaneous Phlebotomy Draw Site RIGHT RADIAL Diagnostic Data EKG Results Twelve-lead ECG tracing was personally reviewed and shows sinus tachycardia 125 bpm, borderline low voltage, no obvious infarct pattern CXR Results IMPRESSION: Increased interstitial markings with hazy opacities most suggestive of developing interstitial edema. Other Results CT IMPRESSION: 1. No focal abnormality to explain patient's symptoms. No biliary or bowel pathology. Bibasilar airspace disease favoring atelectasis although early pneumonitis is not excluded. Correlate clinically. 2. Incidental gallstones. Telemetry tracings were personally reviewed and shows sinus tachycardia Assessment/Plan Assessment/Plan 1. Altered mental status likely due to sepsis 2. Respiratory insufficiency requiring BiPAP 3. History of sleep apnea 4. Minimal troponin elevation consistent with demand ischemia 5. Reported the PVD/venous insufficiency 6. Abnormal LFTs 7. Chronic lower extremity nonhealing wound 8. Sinus tachycardia Elevated troponin likely due to demand ischemia in the setting of sepsis of unclear etiology. Flu swab was negative. Agree with ID consult. No obvious CHF, can use the IV Lasix when necessary for now. She did receive a dose of IV Lasix this morning. Agree with obtaining echocardiogram. Respiratory status seems to be stable on the BiPAP. Would hold statin therapy in the setting of elevated LFTs. Would give low-dose aspirin 81 mg daily. Obtain lower extremity Dopplers. Keep on telemetry. Preet Serrato MD [facility] Consult Acknowledgment - Thank you for your consult request.
--- NOTE | 2016-07-15 10:55 | ULTRASOUND REPORT ---
EXAMINATION: US TRIPLEX LOWER EXTREMITY, BILATERAL CLINICAL INFORMATION: Bilateral lower extremity swelling and erythema. COMPARISON: None. TECHNIQUE: Color-flow triplex imaging with spectral analysis and compression Doppler were performed on the bilateral lower extremities. FINDINGS: The common femoral vein is compressible and exhibits a normal phasic waveform, bilaterally; this suggests that the iliac veins are widely patent above. Within each proximal thigh, the visualized profunda femoris vein is patent. The visualized greater saphenous vein and saphenofemoral junction are normal, bilaterally. Superficial femoral vein is patent in the proximal, mid and distal aspect of each thigh. Popliteal vein appears normal to the level of the trifurcation, bilaterally, and the visualized calf veins are unremarkable. No evidence of Cavazos's cyst. IMPRESSION: No evidence of deep vein thrombosis in either lower extremity.
--- NOTE | 2016-07-15 11:58 | Cons- Wound Care ---
General Information and HPI Consulting Request Date of Consult: 07/15/16 Requested By: JOSELINE ALVARES MD Reason for Consult: Right lateral malleolar ulcer present on admission History of Present Illness: 5-year-old woman status post distant ORIF for ankle fracture has had recurrent right lateral malleolar ulcers. 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 She has been treated with compression dressing elevation but has failed to resolve. Over the past day she's had altered mental status associated with febrile illness and rapidly progressive erythema of her right leg. She required fluid resuscitation for septic shock and now appears to be in a degree of congestive heart failure to volume resuscitation. There is a persistent right lateral malleolar ulcer which has been investigated for osteomyelitis in the past and this has been unrevealing. Allergies/Medications Allergies: Coded Allergies: NO KNOWN ALLERGIES (07/29/12) Home Med List: Alprazolam 1 MG TABLET 1 TAB PO BID ANXIETY (Reported) Levothyroxine Sodium (Synthroid) 175 MCG TABLET 175 MCG PO DAILY AC THYROID ( Reported) Pravastatin Sodium 40 MG TABLET 1 TAB PO DAILY CHOLESTEROL (Reported) Review of Systems Review of Systems: Noncontributory Past History Travel History Traveled to [place] past 21 day No Medical History Blood Transfusion Hx: No Neurological: NONE EENT: NONE Cardiovascular: HYPERTENSION Respiratory: obstructive sleep apnea Gastrointestinal: NONE Hepatic: NONE Renal: NONE Musculoskeletal: R ANKLE ORIF Psychiatric: NONE Endocrine: hypothyroidism Blood Disorders: NONE Cancer(s): NONE 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 Psychosocial History Where Do You Live? Home Who Do You Live With? spouse Services at Home: None Smoking Status: Unknown If Ever Smoked Functional Ability ADLs Independent: dressing, eating, toileting, bathing. Ambulation: independent IADLs Independent: shopping, housework, finances, food prep, telephone, transportation , medication admin. Employment History Employment: Employed Profession/Employer: [employer] as a pay roll Exam & Diagnostic Data Vital Signs and I&O Vital Signs Result Date Time Pulse Ox 97 07/15 1049 Pulse 125 07/15 1049 O2 Delivery BIPAP 07/15 1033 O2 Flow Rate 100% 07/15 1033 Temp 101.3 07/15 1025 B/P 134/82 01/11 0800 Resp 34 07/15 0800 Intake & Output 07/15 0000 07/14 1600 07/14 0800 Intake Total 6190 Output Total 310 Balance 5880 Intake, IV 6190 Number 0 Bowel Movements Output, Urine 310 Patient 271 lb Weight Patient is awake alert on BiPAP with marked facial erythema exam of her right lower extremity shows there to be significant erythema to the knee there is no blistering or crepitus over the right lateral malleolus is a 6.5 x 2.5 full- thickness ulcer with red and yellow fill there is no undermining sinus tracking or exposed bone. Assessment/Plan Impression/Plan: 65-year-old woman with chronic nonhealing right lateral malleolar ulcer thought primarily due to venous hypertension and venous insufficiency is admitted with acute cellulitis complicated by septic shock and secondary congestive heart failure due to volume resuscitation. Recommend leg elevation and wound care can be Aquacel Ag changed daily with gauze over dressing. Infectious disease consultation is pending. Repeat lateral ankle x-ray Consult Acknowledgment - Thank you for your consult request.
--- NOTE | 2016-07-15 12:00 | Cons- Vascular Surgery ---
General Information and HPI Consulting Request Date of Consult: 07/15/16 Requested By: JOSELINE ALVARES MD History of Present Illness: 65-year-old lady with multiple medical issues as well as venous insufficiency who has been followed with me and Dr. Clay at [facility] on 64 the right lateral malleolus wound. She has had a history of right ankle fracture several years ago which was complicated by an infection. She was treated with compression wrap to the right lower extremity. She was recently admitted to the hospital with fever and redness of the right leg. She has been started on antibiotics. Her leukocytosis has increased to 26 from 23 on admission. Vascular surgery service was consulted for right lower extremity wound. Allergies/Medications Allergies: Coded Allergies: NO KNOWN ALLERGIES (07/29/12) Home Med List: Alprazolam 1 MG TABLET 1 TAB PO BID ANXIETY (Reported) Levothyroxine Sodium (Synthroid) 175 MCG TABLET 175 MCG PO DAILY AC THYROID ( Reported) Pravastatin Sodium 40 MG TABLET 1 TAB PO DAILY CHOLESTEROL (Reported) Past History Medical History Blood Transfusion Hx: No Neurological: NONE EENT: NONE Cardiovascular: HYPERTENSION Respiratory: obstructive sleep apnea Gastrointestinal: NONE Hepatic: NONE Renal: NONE Musculoskeletal: R ANKLE ORIF Psychiatric: NONE Endocrine: hypothyroidism Blood Disorders: NONE Cancer(s): NONE 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 Psychosocial History Where Do You Live? Home Who Do You Live With? spouse Services at Home: None Smoking Status: Unknown If Ever Smoked Functional Ability ADLs Independent: dressing, eating, toileting, bathing. Ambulation: independent IADLs Independent: shopping, housework, finances, food prep, telephone, transportation , medication admin. Employment History Employment: Employed Profession/Employer: [employer] as a pay roll Review of Systems Review of Systems: Patient denies dizziness, cough, palpitation, diarrhea or constipation Exam & Diagnostic Data Vital Signs and I&O Vital Signs Date Time Temp Pulse Resp B/P Pulse O2 O2 Flow FiO2 Ox Delivery Rate 07/15 1049 125 97 07/15 1033 97 BIPAP 100% 07/15 1025 101.3 07/15 0903 88 97 07/15 0800 98 BIPAP 100% 07/15 08 100.7 129 34 134/82 94 BIPAP 100% 07/15 0649 133 97 01/11 0400 91 Non 100% ReBreather 07/15 0310 92 Non 100% ReBreather 07/15 0000 93 Part 60% ReBreather 07/14 2300 95.9 99 28 120/58 91 Part 60% ReBreather 07/14 2227 Part 60% ReBreather 07/14 2040 93 Part 60% ReBreather 07/14 1938 97.2 96 24 112/56 94 Non 60% ReBreather 07/14 1915 98.5 98 25 104/61 93 Non 60% ReBreather 07/14 1903 108/66 07/14 1856 90 Venti Mask 50% 07/14 1810 101.6 100 25 90/54 92 Venti Mask 40% 07/14 1739 103.2 110 34 91/55 93 Venti Mask 35% 07/14 1700 105.7 07/14 1700 90 Non 100% ReBreather 07/14 1647 105.7 124 40 105/60 86 Room Air Intake & Output 07/15 1600 07/15 0800 07/15 0000 07/14 1600 07/14 0800 07/14 0000 Intake Total 734 6190 Output Total 340 310 Balance 394 5880 Intake, IV 734 6190 Intake, Oral 0 Number 1 0 Bowel Movements Output, Urine 340 310 Patient 271 lb 271 lb Weight Physical Exam: Patient is alert and oriented 3. She is currently on CPAP machine Cardiovascular: Regular rate and rhythm Abdomen: Soft, nontender nondistended, obese Extremity: There is cellulitis of the right leg involving the foot ascending to below the knee. The right manual or wound is superficial without any gross evidence of infection or purulence. Bilateral lower extremity are otherwise well perfused Assessment/Plan Assessment/Plan 65-year-old lady with chronic venous insufficiency who was treated with compression wrap for right lateral malleolar ulcer presents with right leg cellulitis and fever. She has been started on antibiotics. The lateral malleolus wound is stable. There is cellulitis of the leg. Other sources of infection should also be be investigated as lower extremity cellulitis normally does not cause leukocytosis to the degree that has been presented. No vascular surgery intervention needed at this time. Recommendation would be to elevate the leg and continue antibiotics with supportive care She will need to follow up in the wound center once stable. Consult Acknowledgment - Thank you for your consult request. Attending MD Review Statement Attending Statement Attending MD Statement: examined this patient, discuss w/resident/PA/DROP WIRER
--- NOTE | 2016-07-15 14:42 | RADIOLOGY REPORT ---
EXAMINATION: XR ANKLE, RIGHT CLINICAL INFORMATION: Right lower extremity wound. Evaluate for fracture or osteomyelitis. Sepsis possibly secondary to right lower extremity cellulitis. History of right ankle fracture with infection. Osteomyelitis. COMPARISON: Right lower extremity dated 07/14/2016 and 06/30/2014.. TECHNIQUE: AP, lateral, and mortise views of the right ankle. FINDINGS: Mild diffuse soft tissue swelling about the ankle is seen. No acute fracture or dislocation is noted. The ankle mortise is symmetric and intact. There is focal cortical erosion seen involving the distal fibular shaft with slight expansion of the bone at this level. In the remainder of the distal fibula, model lucency is again seen, unchanged from prior exam. Findings are suspicious for osteomyelitis. IMPRESSION: Suspect osteomyelitis of the distal fibula. No acute fracture.
[2016-07-15 16:00] VITALS: BP 110/80
--- NOTE | 2016-07-15 16:06 | Cons- Infect Disease ---
General Information and HPI Consulting Request Date of Consult: 07/15/16 Requested By: JOSELINE ALVARES MD Reason for Consult: Sepsis/cellulitis right leg Source of Information: patient, family History of Present Illness: This is a 65-year-old woman with a history of obstructive sleep apnea, maintained on CPAP at night, peripheral vascular disease, status post right iliac stent, venous insufficiency, with a nonhealing ulcer of the right lateral malleolus for the past 7 years following an infection secondary to an ORIF of a bimalleolar ankle fracture requiring removal of the hardware, followed by Vascular surgery and ID at [place], with a course of antibiotics given one month prior to admission and treated with a compressive stocking, admitted on July 14 after she was found at home unresponsive with increasing lethargy beginning the day prior to admission. On admission she was found to be febrile to 105.7. O2 sat was in the 70s on room air. Laboratory data revealed a white blood cell count of 24,000, with 82 segs and 14 bands, BUN/creatinine 23 and 1.0, 1.7, AST/ ALT 119 and 72, troponin 0.13, proBNP 3370, INR 1.49. ABG 7.44/29/92 on 100% nonrebreather. Urinalysis greater than 75 RBC/3-5 WBCs. Chest x-ray was negative. X-ray of the right tibia and fibula revealed soft tissue swelling of the proximal right leg. CT of the chest, abdomen and pelvis revealed bibasilar airspace disease, suggestive of atelectasis, and incidental gallstones. Dopplers of both lower extremities were negative. She was given 6 L of fluid, begun on Vancomycin and Ceftazidime and admitted to the ICU. Overnight she became more hypoxic, with inspiratory stridor and crackles; chest x-ray revealed increased interstitial markings, suggestive of interstitial edema, and she was given Lasix with diuresis. She has improved, with respiratory status better, now on high flow oxygen, and her temperatures have decreased. Presently she offers no complaints. Allergies/Medications Allergies: Coded Allergies: NO KNOWN ALLERGIES (07/29/12) Home Med List: Alprazolam 1 MG TABLET 1 TAB PO BID ANXIETY (Reported) Levothyroxine Sodium (Synthroid) 175 MCG TABLET 175 MCG PO DAILY AC THYROID ( Reported) Pravastatin Sodium 40 MG TABLET 1 TAB PO DAILY CHOLESTEROL (Reported) Past History Travel History Traveled to [place] past 21 day No Medical History Blood Transfusion Hx: No Neurological: FIELD'S PALSY EENT: NONE Cardiovascular: hyperlipidemia, PVD, STEMI (right iliac artery), HYPERTENSION Respiratory: obstructive sleep apnea Gastrointestinal: NONE Hepatic: NONE Renal: NONE Musculoskeletal: R ANKLE ORIF Psychiatric: NONE Endocrine: hypothyroidism Blood Disorders: NONE Cancer(s): 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 Psychosocial History Where Do You Live? Home Who Do You Live With? spouse Services at Home: None Smoking Status: Unknown If Ever Smoked Functional Ability ADLs Independent: dressing, eating, toileting, bathing. Ambulation: independent IADLs Independent: shopping, housework, finances, food prep, telephone, transportation , medication admin. Employment History Employment: Employed Profession/Employer: [employer] as a pay roll Review of Systems Review of Systems All Other Systems: Reviewed and Negative Exam & Diagnostic Data Last 24 Hrs of Vital Signs/I&O Vital Signs Date Time Temp Pulse Resp B/P Pulse O2 O2 Flow FiO2 Ox Delivery Rate 07/15 1408 95 Nasal 75% Cannula 07/15 1333 106 95 07/15 1325 97.4 07/15 1200 97 BIPAP 80% 07/15 1049 125 97 07/15 1033 97 BIPAP 100% 07/15 1025 101.3 07/15 0903 88 97 07/15 0800 98 BIPAP 100% 07/15 0800 100.7 129 34 134/82 94 BIPAP 100% 07/15 0649 133 97 07/15 0400 91 Non 100% ReBreather 07/15 0310 92 Non 100% ReBreather 07/15 0000 93 Part 60% ReBreather 07/14 2300 95.9 99 28 120/58 91 Part 60% ReBreather 07/14 2227 Part 60% ReBreather 07/14 2040 93 Part 60% ReBreather 07/14 1938 97.2 96 24 112/56 94 Non 60% ReBreather 07/14 1915 98.5 98 25 104/61 93 Non 60% ReBreather 07/14 1903 108/66 07/14 1856 90 Venti Mask 50% 07/14 1810 101.6 100 25 90/54 92 Venti Mask 40% 07/14 1739 103.2 110 34 91/55 93 Venti Mask 35% 07/14 1700 105.7 07/14 1700 90 Non 100% ReBreather 07/14 1647 105.7 124 40 105/60 86 Room Air Intake & Output 07/15 1600 07/15 0800 07/15 0000 Intake Total 640 838 7189 Output Total 1800 340 310 Balance -8277 782 8242 Intake, IV 687 984 9659 Intake, Oral 0 Number 1 0 Bowel Movements Output, Urine 1800 340 310 Patient 271 lb 271 lb Weight Physical Exam Other Physical Findings: She is awake and alert in no acute distress on high flow oxygen. MAXIMUM TEMPERATURE 105.7. Skin reveals no rash. HEENT exam is negative. Neck is supple with no adenopathy. Lungs bilateral wheezes and rhonchi. Heart regular rhythm with no murmur. Abdomen is obese, soft, nontender with positive bowel sounds. Back no CVA tenderness. Extremities right leg erythema from the ankle towards the knee, warm to touch, with minimal tenderness; ulcer on the right lateral malleolus clean with no exudate; pulses 2+ and equal bilaterally. Neuro is without focality. Edwards catheter is in place. Last 24 Hours of Lab Results: Laboratory Tests 07/15 07/15 0854 0625 Blood Gas pH (7.35 - 7.45 PH) 7.35 7.25 *L pCO2 (35 - 45 TORR) 34 L 44 pO2 (80 - 100 TORR) 134 H 82 HCO3 (21 - 28 MEQ/L) 18 L 19 L ABG O2 Sat (Measured) (>96.0 %) 98.0 95.0 L P-50 (Temp Corrected) Y Y Carboxyhemoglobin (1.5 - 5.0 %) 0.8 L 0.5 L O2 Concentration % 100% 100% Temperature (97.0 - 100.0 FARH) 100.7 H 98.0 Respiration Rate (BPM) 24 O2 Delivery Method VISION NRB Vent Mode ST Expiratory Pressure (CM H2O P) 6 Inspiratory Pressure (CM H2O P) 18 Miscellaneous Phlebotomy Draw Site RIGHT RADIAL LEFT RADIAL 07/15 07/14 07/14 0410 2310 2300 Chemistry Sodium (137 - 145 mmol/L) 143 Potassium (3.5 - 5.1 mmol/L) 4.1 Chloride (98 - 107 mmol/L) 107 Carbon Dioxide (22 - 30 mmol/L) 21 L Anion Gap (5 - 16) 15 BUN (7 - 17 mg/dL) 21 H Creatinine (0.5 - 1.0 mg/dL) 0.8 Estimated GFR (>60 ml/min) > 60 Glucose (65 - 99 mg/dL) 126 H Calcium (8.4 - 10.2 mg/dL) 7.6 L Phosphorus (2.5 - 4.5 mg/dL) 3.5 Magnesium (1.6 - 2.3 mg/dL) 1.9 Total Bilirubin (0.2 - 1.3 mg/dL) 1.2 AST (14 - 36 U/L) 220 H ALT (9 - 52 U/L) 97 H Troponin I (< 0.11 ng/ml) 0.05 Cancelled Albumin (3.5 - 5.0 g/dL) 3.3 L Triglycerides (<150 mg/dL) 120 Cholesterol (<200 MG/DL) 121 LDL Cholesterol, Calc (65 - 129 mg/dL) 46 L HDL Cholesterol (40 - 60 mg/dL) 51 Cholesterol/HDL Ratio (0.00 - 4.23 %) 2 Hematology CBC w Diff MAN DIFF ORDERED WBC (4.8 - 10.8 /CUMM) 26.0 H RBC (4.20 - 5.40 /CUMM) 4.86 Hgb (12.0 - 16.0 G/DL) 14.6 Hct (37 - 47 %) 43.6 MCV (81.0 - 99.0 FL) 89.6 MCH (27.0 - 31.0 PG) 30.0 RDW (11.5 - 14.5 %) 13.0 Plt Count (130 - 400 /CUMM) 206 MPV (7.4 - 10.4 FL) 8.9 Gran % (42.2 - 75.2 %) 95.5 H Lymphocytes % (20.5 - 51.1 %) 1.8 L Monocytes % (1.7 - 9.3 %) 2.7 Eosinophils % (0 - 5 %) 0 Basophils % (0.0 - 2.0 %) 0 L Absolute Granulocytes (1.4 - 6.5 /CUMM) 24.8 H Segmented Neutrophils (42.2 - 75.2 %) 79 H Band Neutrophils (0.0 - 5.0 %) 17 H Absolute Lymphocytes (1.2 - 3.4 /CUMM) 0.5 L Lymphocytes (20.5 - 51.1 %) 3 L Monocytes (1.7 - 9.3 %) 1 L Absolute Monocytes (0.10 - 0.60 /CUMM) 0.7 H Absolute Eosinophils (0.0 - 0.7 /CUMM) 0 Absolute Basophils (0.0 - 0.2 /CUMM) 0 Platelet Estimate (ADEQUATE) ADEQUATE Polychromasia 1+ Ovalocytes FEW PUBS MCHC (33.0 - 37.0 G/DL) 33.5 Other Body Source Fld Total RBCs Counted (%) 100 Toxicology Urine Opiates Screen (>2000 NG/ML) < 100.00 Methadone Screen (>300 NG/ML) < 40 Barbiturate Screen (>200 NG/ML) < 60 Ur Phencyclidine Scrn (>25 NG/ML) < 6.00 Amphetamines Screen (>1000 NG/ML) < 100 U Benzodiazepines Scrn (>200 NG/ML) < 85 Urine Cocaine Screen (>300 NG/ML) < 50 Urine Cannabis Screen (>50 NG/ML) < 5.00 07/14 07/14 07/14 2200 2200 1825 Chemistry Sodium (137 - 145 mmol/L) 139 Potassium (3.5 - 5.1 mmol/L) 3.6 Chloride (98 - 107 mmol/L) 105 Carbon Dioxide (22 - 30 mmol/L) 19 L Anion Gap (5 - 16) 15 BUN (7 - 17 mg/dL) 20 H Creatinine (0.5 - 1.0 mg/dL) 0.8 Estimated GFR (>60 ml/min) > 60 Glucose (65 - 99 mg/dL) 175 H Lactic Acid (0.7 - 2.1 mmol/L) 1.0 Calcium (8.4 - 10.2 mg/dL) 7.2 L Phosphorus (2.5 - 4.5 mg/dL) 4.5 Magnesium (1.6 - 2.3 mg/dL) 1.6 Total Bilirubin (0.2 - 1.3 mg/dL) 1.5 H AST (14 - 36 U/L) 161 H ALT (9 - 52 U/L) 75 H Troponin I (< 0.11 ng/ml) 0.09 Albumin (3.5 - 5.0 g/dL) 3.2 L Prolactin (3.0 - 18.6 ng/mL) 5.0 Serology Virus Culture Pending Urines Urinalysis LIGHT H Urine Color (YEL,AMB,STR) YEL Urine Clarity (CLEAR) HAZY H Urine pH (5.0 - 8.0) 5.5 Ur Specific [place] (1.001 - 1.035) 1.025 Urine Protein (NEG,<30 MG/DL) 100 H Urine Ketones (NEG) NEG Urine Nitrite (NEG) NEG Urine Bilirubin (NEG) NEG@ICTO Urine Urobilinogen (0.1 - 1.0 EU/dl) 0.2 Ur Leukocyte Esterase (NEG) NEG Ur Microscopic SEDIMENT EXAMINED Urine RBC (0 - 5 /HPF) >75 H Urine WBC (0 - 2 /HPF) 3-5 H Ur Epithelial Cells (NONE,FEW) MOD H Hyaline Casts (0/LPF) 1-3 H Urine Mucus (FEW,NONE) FEW Urine Hemoglobin (NEG) LARGE H Urine Glucose (N MG/DL) NEG 07/14 07/14 1712 1700 Chemistry Sodium (137 - 145 mmol/L) 136 L Potassium (3.5 - 5.1 mmol/L) 3.4 L Chloride (98 - 107 mmol/L) 99 Carbon Dioxide (22 - 30 mmol/L) 21 L Anion Gap (5 - 16) 17 H BUN (7 - 17 mg/dL) 23 H Creatinine (0.5 - 1.0 mg/dL) 1.0 Estimated GFR (>60 ml/min) 55 L BUN/Creatinine Ratio (7 - 25 %) 23.0 Glucose (65 - 99 mg/dL) 169 H Lactic Acid (0.7 - 2.1 mmol/L) 1.9 Calcium (8.4 - 10.2 mg/dL) 8.9 Total Bilirubin (0.2 - 1.3 mg/dL) 1.7 H Direct Bilirubin (< 0.4 mg/dL) 0.9 H AST (14 - 36 U/L) 119 H ALT (9 - 52 U/L) 72 H Alkaline Phosphatase (<127 U/L) 90 Troponin I (< 0.11 ng/ml) 0.13 *H [id number]-H-[id number] Pept (<125 pg/mL) 3370 H Total Protein (6.3 - 8.2 g/dL) 6.4 Albumin (3.5 - 5.0 g/dL) 3.6 Globulin (1.9 - 4.2 gm/dL) 2.8 Albumin/Globulin Ratio (1.1 - 2.2 %) 1.3 TSH (0.270 - 4.200 uIU/mL) Cancelled 2.480 Free T4 (0.78 - 2.44 ng/dL) Cancelled 1.49 Coagulation PT (9.4 - 12.5 SEC) 15.6 H INR (0.90 - 1.19) 1.49 H APTT (25 - 37 SEC) 33 Hematology CBC w Diff MAN DIFF ORDERED WBC (4.8 - 10.8 /CUMM) 23.7 H RBC (4.20 - 5.40 /CUMM) 4.76 Hgb (12.0 - 16.0 G/DL) 14.2 Hct (37 - 47 %) 41.5 MCV (81.0 - 99.0 FL) 87.2 MCH (27.0 - 31.0 PG) 29.9 RDW (11.5 - 14.5 %) 12.4 Plt Count (130 - 400 /CUMM) 227 MPV (7.4 - 10.4 FL) 9.1 Gran % (42.2 - 75.2 %) 93.3 H Lymphocytes % (20.5 - 51.1 %) 3.3 L Monocytes % (1.7 - 9.3 %) 3.3 Eosinophils % (0 - 5 %) 0 Basophils % (0.0 - 2.0 %) 0.1 Absolute Granulocytes (1.4 - 6.5 /CUMM) 22.1 H Segmented Neutrophils (42.2 - 75.2 %) 82 H Band Neutrophils (0.0 - 5.0 %) 14 H Absolute Lymphocytes (1.2 - 3.4 /CUMM) 0.8 L Lymphocytes (20.5 - 51.1 %) 2 L Monocytes (1.7 - 9.3 %) 2 Absolute Monocytes (0.10 - 0.60 /CUMM) 0.8 H Absolute Eosinophils (0.0 - 0.7 /CUMM) 0 Absolute Basophils (0.0 - 0.2 /CUMM) 0 Platelet Estimate (ADEQUATE) ADEQUATE Normocytic RBCs VERIFIED Normochromic RBCs VERIFIED PUBS MCHC (33.0 - 37.0 G/DL) 34.2 Serology Hepatitis A IgM Ab (NONREACTIVE) NONREACTIVE Hep Bs Antigen (NONREACTIVE) NONREACTIVE Hep B Core IgM Ab Conf (NONREACTIVE) NONREACTIVE Hepatitis C Antibody (NONREACTIVE) NONREACTIVE 07/14 1645 Blood Gas pH (7.35 - 7.45 PH) 7.44 pCO2 (35 - 45 TORR) 29 L pO2 (80 - 100 TORR) 92 HCO3 (21 - 28 MEQ/L) 19 L ABG O2 Sat (Measured) (>96.0 %) 94.0 L P-50 (Temp Corrected) Y Carboxyhemoglobin (1.5 - 5.0 %) 0.9 L O2 Concentration % 100% Temperature (97.0 - 100.0 FARH) 105.7 H O2 Delivery Method NRB Miscellaneous Phlebotomy Draw Site RIGHT RADIAL Last 24 Hours of Edwin Results: Blood cultures 2 July 14 negative Rapid flu swab July 14 negative Stool culture July 14 mixed diane Stool C. difficile July 14 negative Urine culture July 14 pending Urine strep pneumo antigen and Legionella antigen July 14 negative Diagnostic Data Recent Imaging Findings: Chest x-ray July 14 negative. Chest x-ray July 15 increased interstitial markings with hazy opacities suggestive of interstitial edema X-ray of the right tibia and fibula revealed soft tissue swelling of the proximal right leg. CT of the chest, abdomen and pelvis revealed bibasilar airspace disease, suggestive of atelectasis, and incidental gallstones. Dopplers of both lower extremities negative. 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 The most likely source of her sepsis appears to be a right leg cellulitis likely related to her nonhealing right lateral malleolar ulcer, with the possible contribution of the compression stocking. Her history is consistent with underlying osteomyelitis, given the chronic, nonhealing ulcer, and this is suggested on the x-ray of the ankle; therefore a bone biopsy will need to be done to confirm this diagnosis and identify the pathogen(s) responsible for this infection. The cellulitis is most likely secondary to a beta-hemolytic strep and her antibiotics should be able to be narrowed. She does not appear to have any other obvious source of infection, with CT scan of the chest negative for pneumonia And urinalysis not suggestive of a urinary tract infection. Suggestion: 1. Podiatry evaluation 2. Elevate right leg 3. Discontinue Vancomycin and Ceftazidime 4. Begin Cefazolin 2 g IV every 8 hours Consult Acknowledgment - Thank you for your consult request.
--- NOTE | 2016-07-15 16:51 | Cons- Podiatry ---
General Information and HPI Consulting Request Date of Consult: 07/15/16 Requested By: JOSELINE ALVARES MD History of Present Illness: Vero is a 65-year-old female with a long-standing history of a nonhealing ulcer to her lateral right ankle. The patient sustained an ankle fracture in 2008 requiring open reduction and internal fixation, which subsequently became infected requiring removal of the hardware. The patient's lateral ulcer has had a waxing and waning course, with complete healing apparently 6 months ago and subsequent recurrence. The patient was brought to the hospital via ambulance yesterday after being found unresponsive. The patient did complain of flulike symptoms the day prior. The patient has been seen in the wound center and by Dr. Clay and Dr. Carrillo. Allergies/Medications Allergies: Coded Allergies: NO KNOWN ALLERGIES (07/29/12) Home Med List: Alprazolam 1 MG TABLET 1 TAB PO BID ANXIETY (Reported) Levothyroxine Sodium (Synthroid) 175 MCG TABLET 175 MCG PO DAILY AC THYROID ( Reported) Pravastatin Sodium 40 MG TABLET 1 TAB PO DAILY CHOLESTEROL (Reported) Past History Medical History Blood Transfusion Hx: No Neurological: FIELD'S PALSY EENT: NONE Cardiovascular: hyperlipidemia, PVD, STEMI (right iliac artery), HYPERTENSION Respiratory: obstructive sleep apnea Gastrointestinal: NONE Hepatic: NONE Renal: NONE Musculoskeletal: R ANKLE ORIF Psychiatric: NONE Endocrine: hypothyroidism Blood Disorders: NONE 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 Psychosocial History Where Do You Live? Home Who Do You Live With? spouse Services at Home: None Smoking Status: Unknown If Ever Smoked Functional Ability ADLs Independent: dressing, eating, toileting, bathing. Ambulation: independent IADLs Independent: shopping, housework, finances, food prep, telephone, transportation , medication admin. Employment History Employment: Employed Profession/Employer: [employer] as a pay roll Review of Systems Review of Systems: Unremarkable except for that noted in history of present illness Exam & Diagnostic Data Vital Signs and I&O Vital Signs Date Time Temp Pulse Resp B/P Pulse O2 O2 Flow FiO2 Ox Delivery Rate 07/15 1408 95 Nasal 75% Cannula 07/15 1333 106 95 07/15 1325 97.4 07/15 1200 97 BIPAP 80% 07/15 1049 125 97 07/15 1033 97 BIPAP 100% 07/15 1025 101.3 07/15 0903 88 97 07/15 0800 98 BIPAP 100% 07/15 0800 100.7 129 34 134/82 94 BIPAP 100% 07/15 0649 133 97 07/15 0400 91 Non 100% ReBreather 07/15 0310 92 Non 100% ReBreather 07/15 0000 93 Part 60% ReBreather 07/14 2300 95.9 99 28 120/58 91 Part 60% ReBreather 07/14 2227 Part 60% ReBreather 07/14 2040 93 Part 60% ReBreather 07/14 1938 97.2 96 24 112/56 94 Non 60% ReBreather 07/14 1915 98.5 98 25 104/61 93 Non 60% ReBreather 07/14 1903 108/66 07/14 1856 90 Venti Mask 50% 07/14 1810 101.6 100 25 90/54 92 Venti Mask 40% 07/14 1739 103.2 110 34 91/55 93 Venti Mask 35% 07/14 1700 105.7 07/14 1700 90 Non 100% ReBreather Intake & Output 07/15 1600 07/15 0800 07/15 0000 07/14 1600 07/14 0800 07/14 0000 Intake Total 790 905 3666 Output Total 1800 340 310 Balance -3313 500 0286 Intake, IV 672 901 8767 Intake, Oral 0 Number 1 0 Bowel Movements Output, Urine 1800 340 310 Patient 271 lb 271 lb Weight Physical Exam: Stable appearing ulcer overlying the lateral aspect of the right ankle. No probing or undermining identified. No fluctuance or crepitus noted. There is cellulitis noted about the periphery of the leg extending proximally to the region just inferior to the knee. X-rays demonstrate findings consistent with a possible fibular osteomyelitis. Assessment/Plan Assessment/Plan Sepsis and right lower extremity cellulitis. Consider an MRI to further characterize the x-ray findings and rule out a possible septic joint. For now, continue management per medicine and infectious disease. Consult Acknowledgment - Thank you for your consult request. Attending MD Review Statement Attending Statement Attending MD Statement: examined this patient
--- NOTE | 2016-07-15 18:32 | ECHOCARDIOGRAM REPORT ---
VIGNESH MEJIA Age: 65 : 1950 Gender: F Exam Date: 07/15/2016 16:29 Exam Location: [facility] Ht (in): 66 Wt (lb): 271 BSA: 2.46 BP: 134 / 82 Ordering Physician: DAYRON BUENO MD Referring Physician: Ezio Serrato M.D. Technologist: Danuta Stokes RDCS Room Number: 106 Indications: MYOCARDIAL ISCHEMIA/OR Rhythm: Sinus Technical Quality: fair FINDINGS Left Ventricle Normal global left ventricular size, wall thickness, systolic function with no obvious regional wall motion abnormalities. Normal left ventricular ejection fraction estimated at 60-65%. Right Ventricle Normal right ventricular size and function. Right Atrium Normal right atrial size. Left Atrium Normal left atrial size. Mitral Valve Mild mitral annular calcification. Trace mitral regurgitation. Aortic Valve Aortic valve not well visualized, grossly normal. Tricuspid Valve Tricuspid valve is normal in structure and function. Trace to mild tricuspid regurgitation. Right ventricular systolic pressure estimated to be at upper limits of normal at 33 mmHg. Pulmonic Valve Pulmonic valve not well visualized, grossly normal. Pericardium No pericardial effusion. Great Vessels Normal size aortic root. CONCLUSIONS Normal left and right ventricular systolic function. No significant valvular abnormalities noted. Vik Hoskins M.D. (Electronically Signed) Final Date: 15 July 2016 18:32 MEASUREMENTS (Male / Female) Normal Values 2D ECHO LV Diastolic Diameter PLAX 4.5 cm 4.2 - 5.9 / 3.9 - 5.3 cm LV Systolic Diameter PLAX 3.0 cm 2.1 - 4.0 cm LV Fractional Shortening PLAX 33.3 % 25 - 46 % LV Ejection Fraction 2D Teich 62.1 % IVS Diastolic Thickness 1.0 cm LVPW Diastolic Thickness 1.0 cm LV Relative Wall Thickness 0.4 RV Internal Dim ED PLAX 2.5 cm 1.9 - 3.8 cm LVOT Diameter 1.9 cm Aortic Root Diameter 3.4 cm LA Systolic Diameter LX 3.5 cm 3.0 - 4.0 / 2.7 - 3.8 cm LA Volume 24.0 cm 18 - 58 / 22 - 52 cm Ascending Aorta Diameter 3.2 cm DOPPLER AV Peak Velocity 187.0 cm/s AV Peak Gradient 14.0 mmHg AV Mean Velocity 130.0 cm/s AV Mean Gradient 8.0 mmHg AV Velocity Time Integral 29.9 cm LVOT Peak Velocity 130.0 cm/s LVOT Peak Gradient 6.8 mmHg LVOT Mean Velocity 85.8 cm/s LVOT Mean Gradient 4.0 mmHg LVOT Velocity Time Integral 23.5 cm LVOT Stroke Volume 66.6 cm AV Area Cont Eq vti 2.2 cm AV Area Cont Eq pk 2.0 cm MV Peak Velocity 124.0 cm/s MV Peak Gradient 6.2 mmHg MV Mean Velocity 67.6 cm/s MV Mean Gradient 2.0 mmHg Mitral E Point Velocity 97.7 cm/s Mitral A Point Velocity 114.0 cm/s Mitral E to A Ratio 0.9 MV PHT Velocity 123.0 cm/s MV Deceleration [place] 887.0 cm/s MV Pressure Half Time 41.6 ms MV Area PHT 5.3 cm MV Deceleration Time 198.0 ms TR Peak Velocity 266.0 cm/s TR Peak Gradient 28.3 mmHg Right Atrial Pressure 5.0 mmHg Pulmonary Artery Systolic Pressu 33.3 mmHg Right Ventricular Systolic Press 33.3 mmHg PV Peak Velocity 141.0 cm/s PV Peak Gradient 8.0 mmHg PV Mean Velocity 90.3 cm/s PV Mean Gradient 4.0 mmHg PV Velocity Time Integral 22.0 cm LV E' Lateral Velocity 19.2 cm/s Mitral E to LV E' Lateral Ratio 5.1 LV E' Septal Velocity 8.8 cm/s Mitral E to LV E' Septal Ratio 11.1
[2016-07-15 23:00] VITALS: BP 144/90
[2016-07-16 05:39] LABS: ABSOLUTE BASOPHIL COUNT 0 /CUMM (0.0-0.2); ABSOLUTE EOSINOPHIL COUNT 0 /CUMM (0.0-0.7); ABSOLUTE GRANULOCYTE CT 14.7 /CUMM (1.4-6.5); ABSOLUTE LYMPH COUNT 0.7 /CUMM (1.2-3.4); ABSOLUTE MONOCYTE COUNT 0.7 /CUMM (0.10-0.60); BASOPHIL % 0 % (0.0-2.0); EOSINOPHIL % 0 % (0-5); GRANULOCYTE % 91.5 % (42.2-75.2); HEMATOCRIT 39.1 % (37-47); MEAN CORPUSCULAR HGB 29.8 PG (27.0-31.0); MEAN CORPUSCULAR HGB CONC 33.7 G/DL (33.0-37.0); MEAN CORPUSCULAR VOLUME 88.3 FL (81.0-99.0); MEAN PLATELET VOLUME 9.4 FL (7.4-10.4); PLATELET COUNT 194 /CUMM (130-400); RBC DISTRIBUTION WIDTH 12.8 % (11.5-14.5); RED BLOOD CELL CT 4.42 /CUMM (4.20-5.40); WHITE BLOOD CELL COUNT 16.1 /CUMM (4.8-10.8)
[2016-07-16 08:00] VITALS: BP 110/64
--- NOTE | 2016-07-16 08:11 | PN- Wound Care ---
Subjective Subjective: He'll somewhat improved shortness of breath is improved though she continues to require high flow oxygen. Right lower extremity erythema persists and there is now blister formation with serous drainage. X-ray suggestive of possible distal fibular osteomyelitis Objective Vital Signs and I&Os Vital Signs Result Date Time Pulse Ox 96 07/16 554 O2 Delivery Nasal Cannula 07/16 554 O2 Flow Rate 80% 07/16 554 Temp 100.1 07/16 0155 B/P 144/90 07/15 2300 Pulse 113 07/15 2300 Resp 32 07/15 2300 Intake & Output 07/16 0000 07/15 1600 07/15 0800 Intake Total 420 120 734 Output Total 450 1800 340 Balance -30 -1680 394 Intake, IV 120 734 Intake, Oral 420 0 Number 3 1 Bowel Movements Output, Urine 450 1800 340 Patient 271 lb Weight Exam of her ulcer shows a to be unchanged there are several fluid-filled blisters now present with serous drainage Impression/Plan Impression/Plan Impression/Plan: 65-year-old woman with chronic nonhealing right lateral malleolar ulcer thought primarily due to venous hypertension and venous insufficiency is admitted with acute cellulitis complicated by septic shock and secondary congestive heart failure due to volume resuscitation. continue current wound care Adaptic can be placed over blisters and ruptured blisters leg should continue to be elevated. MRI is to be done once clinically stable
--- NOTE | 2016-07-16 08:18 | RADIOLOGY REPORT ---
EXAMINATION: XR PORTABLE CHEST CLINICAL INFORMATION: Sepsis secondary to right lower extremity cellulitis. Hypoxic and tachypneic. COMPARISON: CT chest and chest radiograph from 07/14/2016 TECHNIQUE: Portable view of the chest was obtained. FINDINGS: There are low lung volumes. Interval development of bilateral interstitial airspace disease, greatest in the right upper lobe. There is new, fullness at the right hilar region. Similar right basilar atelectasis. There is new peribronchial thickening noted. No pneumothorax or definite pleural effusion. Osseous structures are intact. IMPRESSION: New bilateral peribronchial thickening and interstitial airspace disease, greatest in the right upper lobe. There is also increased fullness at the right hilar region. Findings are nonspecific but given the short interval development may be related to edema. Clinical correlation and follow-up to exclude an associated infectious process recommended.
--- NOTE | 2016-07-16 09:13 | PN- CRCU ---
Subjective HPI/Critical Care Issues: pt seen and examined febrile to 101.7 tmax, tc 99.6 wbc improved from 26 to 16 CXR suggestive of edema high flow oxygen 80% fio2 imaging suggestive of osteomyelitis Objective Current Medications: Current Medications Sig/Melisa Start time Last Medication Dose Route Stop Time Status Admin Acetaminophen 1,000 MG Q6P PRN 07/15 1015 CAN N/A 1 UNIT IV Acetaminophen 1,000 MG Q6P PRN 07/14 2014 AC 07/16 N/A 1 UNIT IV 0058 Aspirin 81 MG DAILY 07/15 1207 AC 07/16 PO 0847 Cefazolin Sodium 2 GM IQ8 07/16 0000 AC 07/16 N/A 1 UNIT IV 0750 Ceftazidime 1,000 MG IQ8 07/15 0000 DC 07/15 IV 0812 Furosemide 20 MG ONCE ONE 07/15 1045 DC 07/15 IV 07/15 1046 1057 Heparin Sodium 5,000 UNIT Q8 07/14 2200 AC 07/16 (Porcine) SC 0658 Levothyroxine Sodium 0.175 MG DAILY AC 07/16 0700 AC 07/16 PO 0658 Levothyroxine Sodium 88 MCG DAILY AC 07/15 0700 DC 07/15 IV 1025 Nystatin 1 IZZY BID PRN 07/15 0900 AC TOP Pravastatin Sodium 40 MG 1700 07/15 1700 CAN PO Sodium Chloride 1,000 ML Q8H 07/14 1999 DC 07/14 IV 2137 Vancomycin HCl 1,000 MG Q12H 07/15 0500 DC 07/15 Dextrose/Water 250 ML IV 0513 Vital Signs & I&O Last 24 Hrs of Vitals and I&O: Vital Signs Date Time Temp Pulse Resp B/P Pulse O2 O2 Flow FiO2 Ox Delivery Rate 07/16 08 99 Nasal 80% Cannula 07/16 08 99.6 98 24 110/64 99 80% 07/16 0555 96 Nasal 80% Cannula 07/16 0400 98 Nasal 80% Cannula 07/16 0155 100.1 07/16 0058 101.7 07/16 0034 95 Nasal 80% Cannula 07/16 0000 95 Nasal 70% Cannula 07/15 2300 101.7 113 32 144/90 95 Nasal 70% Cannula 07/15 2000 95 Nasal 70% Cannula 07/15 1947 91 Nasal 75% Cannula 07/15 1600 99.3 110 28 110/80 95 Nasal 30% Cannula 07/15 1600 95 Nasal 70% Cannula 07/15 1408 95 Nasal 75% Cannula 07/15 1333 106 95 07/15 1325 97.4 07/15 1200 97 BIPAP 80% 07/15 1049 125 97 07/15 1033 97 BIPAP 100% 07/15 1025 101.3 Intake & Output 07/16 1600 07/16 0800 07/16 0000 Intake Total 270 420 Output Total 315 450 Balance -45 -30 Intake, IV 150 Intake, Oral 120 420 Number 1 3 Bowel Movements Output, Urine 315 450 Exam Other Physical Findings: gen awake heent high flow o2 cvs s1, s2 lungs transmitted, reduced bs bilaterally, rare rhonchi abd obese ext dressing intact Results Last 24 Hrs of Lab Results: Laboratory Tests 07/16/16 0508: Anion Gap 12, Estimated GFR > 60, Glucose 129 H, Calcium 8.4, Phosphorus 1.8 L , Magnesium 2.1, Total Bilirubin 0.9, AST 208 H, ALT 115 H, Albumin 3.1 L, CBC w Diff MAN DIFF ORDERED, RBC 4.42, MCV 88.3, MCH 29.8, RDW 12.8, MPV 9.4, Gran % 91.5 H, Lymphocytes % 4.1 L, Monocytes % 4.4, Eosinophils % 0, Basophils % 0 L, Absolute Granulocytes 14.7 H, Segmented Neutrophils 82 H, Band Neutrophils 11 H, Absolute Lymphocytes 0.7 L, Lymphocytes 2 L, Monocytes 5, Absolute Monocytes 0.7 H, Absolute Eosinophils 0, Absolute Basophils 0, Platelet Estimate ADEQUATE, Polychromasia 1+, Ovalocytes FEW, PUBS MCHC 33.7, Fld Total RBCs Counted 100 Impression/Plan Impression/Plan Impression/Plan: Impression 65 year old woman * Acute hypoxemic respiratory failure, likely fluid overload * sepsis likely secondary to osteomyelitis Plan Respiratory - o2 supplementation, negative fluid balance today ID - ID consultation appreciated, Cefazolin 2g IV q8h, podiatry evaluation, vascular appreciated CVS -monitor hemodynamics Heme - monitor cbc, coags Metabolic - ins/outs, creatinine, electrolytes Alimentary - aspiration precautions, nutrition evaluation Neuro - no active issues DVT prophylaxis at all times TTS 40 min
--- NOTE | 2016-07-16 10:00 | PN- Resident CRCU ---
Subjective HPI/CRCU Issues: Patient seen and examined. She is seen lying upright in bed maintained on supplemental oxygen via high flow nasal cannula resting comfortably. She appears to be in no acute distress. She admits that her leg looks better today in the sense that the redness has "gone down". Otherwise she denies any new complaints and says that she slept well last night. Additionally she denies any headache, fever, chills, chest pain, worsening shortness of breath, nausea, vomiting, diarrhea. No overnight events reported. Objective Vital Signs & I&O Last 8 Hrs of Vitals and I&O: Vitals: - Temperature: 99.6-101.7 - Heart Rate: 96-110 - Respiratory Rate: 21-33 - Systolic Blood pressure: 116-145 - Diastolic Blood pressure: 61-85 - Oxygen Saturation: 94-100% on 70% FiO2 Exam General Appearance: well developed/nourished, no apparent distress, alert, awake , comfortable, obese Other Physical Findings: General -well-developed, well-nourished obese female in no acute distress HEENT - NCAT, PERRL, EOMI, anicteric sclera, high flow nasal cannula in place Cardio - S1, S2 w/o murmurs/gallops/rubs Resp -rhonchi heard in bibasilar lung talbert, no crackles GI -soft, obese, nontender, nondistended, bowel sounds present -Edwards catheter in place Neuro - Awake and alert, CN II - XII grossly intact Extremities: -RLE: Distal extremity wrapped in gauze with underlying improving erythema without any obvious drainage or new skin breakdown, skin is warm and nontender, free range of movement in ankle/knee, distal pulses present Current Medications: Current Medications Sig/Melisa Start time Last Medication Dose Route Stop Time Status Admin Acetaminophen 650 MG Q4P PRN 07/16 0945 AC PO Acetaminophen 1,000 MG Q6P PRN 07/15 1015 CAN N/A 1 UNIT IV Acetaminophen 1,000 MG Q6P PRN 07/14 2014 DC 07/16 N/A 1 UNIT IV 0058 Aspirin 81 MG DAILY 07/15 1207 AC 07/16 PO 0847 Cefazolin Sodium 2 GM IQ8 07/16 0000 AC 07/16 N/A 1 UNIT IV 0750 Ceftazidime 1,000 MG IQ8 07/15 0000 DC 07/15 IV 0812 Furosemide 20 MG ONCE ONE 07/15 1045 DC 07/15 IV 07/15 1046 1057 Heparin Sodium 5,000 UNIT Q8 07/14 2200 AC 07/16 (Porcine) SC 0658 Levothyroxine Sodium 0.175 MG DAILY AC 07/16 0700 AC 07/16 PO 0658 Levothyroxine Sodium 88 MCG DAILY AC 07/15 0700 DC 07/15 IV 1025 Nystatin 1 IZZY BID PRN 07/15 0900 AC TOP Pravastatin Sodium 40 MG 1700 07/15 1700 CAN PO Vancomycin HCl 1,000 MG Q12H 07/15 0500 DC 07/15 Dextrose/Water 250 ML IV 0513 Impression/Plan Impression/Problem List Impression: Patient was evaluated by podiatry last evening after the repeat multi view ankle xray was suggestive of osteomyelitis of the distal fibula. It was decided to hold off any immediate surgical intervention to further assess for extensive disease with an MRI. Given her history of stent placement records were requested from the office of Dr. Clay and it was determined that the stents are compatible with MRI. Antibiotics were narrowed to Cefazolin. Echocardiogram was within normal limits. She was started on a diet yesterday evening as she passed a bedside swallow evaluation and was no longer on bipap. She will be made NPO overnight in anticipation for surgery tomorrow. Problem List: -Acute hypoxic respiratory failure, now stable -Severe Sepsis, now stable -Right Lower Extremity Cellulitis, on Cefazolin -Elevated tropomoins, most likely demand ischemia -Metabolic acidosis, resolved -Transaminitis Respitory/Infectious Disease: Patient with a history of obstructive sleep apnea on CPAP seen for evaluation of altered mental status. Found to be in moderate respiratory distress and hypoxic. Respiratory distress most likely due to sepsis secondary to right lower extremity cellulitis/possible osteomyelitis. Patient required 6L normal saline fluid resuscitation. -Maintain supplemental oxygen, keep above 92% -Antibiotics per ID consult -Podiatry consult -Wound Care consult -Vascular Surgery consult -Infectious Disease consult -Follow up cultures & sensitivities Cardiovascular: Patient with a history of peripheral vascular disease s/p stents. Troponins and EKG were negative time three. Echocardiogram was ordered. -ECHO: EF 60-65%, no wall motion abnormalities -Aspirin 81mg PO Daily -Cardiology Consult Diet - Regular diet, NPO overnight for surgery DVT PPx - Heparing SC Code Status - FULL CODE Problem List: 1. Cellulitis 2. Sepsis 3. Hypoxia Pain Ratin Tomorrow's Labs & Rationales: CBC ICU Plan DVT/Prophylaxis: pharmacological
--- NOTE | 2016-07-16 10:00 | PN- Infect Dx ---
Subjective Subjective: MAXIMUM TEMPERATURE 101.7. She feels well with no complaints Objective Last 24 Hrs of Vital Signs/I&O Vital Signs Date Time Temp Pulse Resp B/P Pulse O2 O2 Flow FiO2 Ox Delivery Rate 07/16 799 99 Nasal 80% Cannula 07/16 08 99.6 98 24 110/64 99 80% 07/16 0555 96 Nasal 80% Cannula 07/16 0400 98 Nasal 80% Cannula 07/16 0155 100.1 07/16 0058 101.7 07/16 0034 95 Nasal 80% Cannula 07/16 0000 95 Nasal 70% Cannula 07/15 2300 101.7 113 32 144/90 95 Nasal 70% Cannula 07/15 2000 95 Nasal 70% Cannula 07/15 1947 91 Nasal 75% Cannula 07/15 1600 99.3 110 28 110/80 95 Nasal 30% Cannula 07/15 1600 95 Nasal 70% Cannula 07/15 1408 95 Nasal 75% Cannula 07/15 1333 106 95 07/15 1325 97.4 07/15 1200 97 BIPAP 80% 07/15 1049 125 97 07/15 1033 97 BIPAP 100% 07/15 1025 101.3 Intake & Output 07/16 1600 07/16 0800 07/16 0000 Intake Total 270 420 Output Total 315 450 Balance -45 -30 Intake, IV 150 Intake, Oral 120 420 Number 1 3 Bowel Movements Output, Urine 315 450 Physical Exam Other Physical Findings: She appears comfortable on high flow oxygen Lungs bilateral inspiratory wheezes and scattered crackles Heart regular rhythm with no murmur Abdomen is obese, soft, nontender with positive bowel sounds Extremities right leg erythema unchanged, with patches of erythema on the medial aspect of her right thigh, mildly tender to palpation; right lateral malleolar ulcer clean; full range of motion of the right ankle joint Edwards catheter remains in place Results Last 24 Hours of Lab Results: Laboratory Tests 07/16 0508 Chemistry Sodium (137 - 145 mmol/L) 141 Potassium (3.5 - 5.1 mmol/L) 4.0 Chloride (98 - 107 mmol/L) 103 Carbon Dioxide (22 - 30 mmol/L) 25 Anion Gap (5 - 16) 12 BUN (7 - 17 mg/dL) 19 H Creatinine (0.5 - 1.0 mg/dL) 0.7 Estimated GFR (>60 ml/min) > 60 Glucose (65 - 99 mg/dL) 129 H Calcium (8.4 - 10.2 mg/dL) 8.4 Phosphorus (2.5 - 4.5 mg/dL) 1.8 L Magnesium (1.6 - 2.3 mg/dL) 2.1 Total Bilirubin (0.2 - 1.3 mg/dL) 0.9 AST (14 - 36 U/L) 208 H ALT (9 - 52 U/L) 115 H Albumin (3.5 - 5.0 g/dL) 3.1 L Hematology CBC w Diff MAN DIFF ORDERED WBC (4.8 - 10.8 /CUMM) 16.1 H RBC (4.20 - 5.40 /CUMM) 4.42 Hgb (12.0 - 16.0 G/DL) 13.2 Hct (37 - 47 %) 39.1 MCV (81.0 - 99.0 FL) 88.3 MCH (27.0 - 31.0 PG) 29.8 RDW (11.5 - 14.5 %) 12.8 Plt Count (130 - 400 /CUMM) 194 MPV (7.4 - 10.4 FL) 9.4 Gran % (42.2 - 75.2 %) 91.5 H Lymphocytes % (20.5 - 51.1 %) 4.1 L Monocytes % (1.7 - 9.3 %) 4.4 Eosinophils % (0 - 5 %) 0 Basophils % (0.0 - 2.0 %) 0 L Absolute Granulocytes (1.4 - 6.5 /CUMM) 14.7 H Segmented Neutrophils (42.2 - 75.2 %) 82 H Band Neutrophils (0.0 - 5.0 %) 11 H Absolute Lymphocytes (1.2 - 3.4 /CUMM) 0.7 L Lymphocytes (20.5 - 51.1 %) 2 L Monocytes (1.7 - 9.3 %) 5 Absolute Monocytes (0.10 - 0.60 /CUMM) 0.7 H Absolute Eosinophils (0.0 - 0.7 /CUMM) 0 Absolute Basophils (0.0 - 0.2 /CUMM) 0 Platelet Estimate (ADEQUATE) ADEQUATE Polychromasia 1+ Ovalocytes FEW PUBS MCHC (33.0 - 37.0 G/DL) 33.7 Other Body Source Fld Total RBCs Counted (%) 100 Last 24 Hours of Edwin Results: Blood cultures 2 July 14 negative Urine culture July 14 negative Recent Imaging Studies: Chest x-ray July 16 bilateral interstitial markings, particularly in the right upper lobe, with slight improvement in the left lung Assessment/Plan Impression: Sepsis presumably secondary to a right leg cellulitis, with underlying osteomyelitis of the right fibula suspected on x-ray. She remains febrile, though lower grade, and white blood cell count is decreasing, with decreased bands, now on Cefazolin. She has been seen by Podiatry and will require a biopsy of her fibula to confirm the clinical suspicion of osteomyelitis and identify the pathogen(s) responsible for this presumed infection. Her chest x- ray is still suggestive of fluid overload, with no further Lasix given. Suggestion: 1. Await biopsy of the right fibula per Podiatry 2. Elevate right leg 3. Consider need for additional Lasix 4. Continue Cefazolin
--- NOTE | 2016-07-16 11:12 | PN- Cardiology ---
Subjective Subjective: Telemetry sinus rhythm with a tendency to sinus tachycardia. Patient denies any chest pains. Objective Vital Signs and I&Os Vital Signs Date Time Temp Pulse Resp B/P Pulse O2 O2 Flow FiO2 Ox Delivery Rate 07/16 799 99 Nasal 80% Cannula 07/16 08 99.6 98 24 110/64 99 80% 07/16 0555 96 Nasal 80% Cannula 07/16 0400 98 Nasal 80% Cannula 07/16 0155 100.1 07/16 0058 101.7 07/16 0034 95 Nasal 80% Cannula 07/16 0000 95 Nasal 70% Cannula 07/15 2300 101.7 113 32 144/90 95 Nasal 70% Cannula 07/15 2000 95 Nasal 70% Cannula 07/15 1947 91 Nasal 75% Cannula 07/15 1600 99.3 110 28 110/80 95 Nasal 30% Cannula 07/15 1600 95 Nasal 70% Cannula 07/15 1408 95 Nasal 75% Cannula 07/15 1333 106 95 07/15 1325 97.4 07/15 1200 97 BIPAP 80% Intake & Output 07/16 1600 07/16 0800 07/16 0000 07/15 1600 07/15 0800 07/15 0000 Intake Total 270 420 419 644 7457 Output Total 079 666 7732 340 310 Balance -45 -30 -8907 207 0506 Intake, IV 150 680 804 4412 Intake, Oral 120 420 0 Number 1 3 1 0 Bowel Movements Output, Urine 162 347 8260 340 310 Patient 266 lb 271 lb 271 lb Weight Physical Exam: Gen. exam patient comfortable Head normocephalic atraumatic Eyes sclera anicteric conjunctiva showed no pallor extraocular muscles were normal Chest lungs were clear bilaterally Heart regular rhythm without murmurs Abdomen soft protuberant no organomegaly nontender Extremities right leg cellulitis left leg varicosities Neurological no gross motor or sensory deficits Current Medications: Current Medications Sig/Melisa Start time Last Medication Dose Route Stop Time Status Admin Acetaminophen 650 MG Q4P PRN 07/16 0945 AC PO Acetaminophen 1,000 MG Q6P PRN 07/14 2014 DC 07/16 N/A 1 UNIT IV 0058 Aspirin 81 MG DAILY 07/15 1207 AC 07/16 PO 0847 Cefazolin Sodium 2 GM IQ8 07/16 0000 AC 07/16 N/A 1 UNIT IV 0750 Ceftazidime 1,000 MG IQ8 07/15 0000 DC 07/15 IV 0812 Heparin Sodium 5,000 UNIT Q8 07/14 2200 AC 07/16 (Porcine) SC 0658 Levothyroxine Sodium 0.175 MG DAILY AC 07/16 0700 AC 07/16 PO 0658 Levothyroxine Sodium 88 MCG DAILY AC 07/15 0700 DC 07/15 IV 1025 Nystatin 1 IZZY BID PRN 07/15 0900 AC TOP Pravastatin Sodium 40 MG 1700 07/15 1700 CAN PO Vancomycin HCl 1,000 MG Q12H 07/15 0500 DC 07/15 Dextrose/Water 250 ML IV 0513 Results Last 48 Hrs of Labs/Mics: Laboratory Tests 07/16/16 0508: Anion Gap 12, Estimated GFR > 60, Glucose 129 H, Calcium 8.4, Phosphorus 1.8 L , Magnesium 2.1, Total Bilirubin 0.9, AST 208 H, ALT 115 H, Albumin 3.1 L, CBC w Diff MAN DIFF ORDERED, RBC 4.42, MCV 88.3, MCH 29.8, RDW 12.8, MPV 9.4, Gran % 91.5 H, Lymphocytes % 4.1 L, Monocytes % 4.4, Eosinophils % 0, Basophils % 0 L, Absolute Granulocytes 14.7 H, Segmented Neutrophils 82 H, Band Neutrophils 11 H, Absolute Lymphocytes 0.7 L, Lymphocytes 2 L, Monocytes 5, Absolute Monocytes 0.7 H, Absolute Eosinophils 0, Absolute Basophils 0, Platelet Estimate ADEQUATE, Polychromasia 1+, Ovalocytes FEW, PUBS MCHC 33.7, Fld Total RBCs Counted 100 07/15/16 0854: pH 7.35, pCO2 34 L, pO2 134 H, HCO3 18 L, ABG O2 Sat (Measured) 98.0, P-50 ( Temp Corrected) Y, Carboxyhemoglobin 0.8 L, O2 Concentration % 100%, Temperature 100.7 H, Respiration Rate 24, O2 Delivery Method VISION, Vent Mode ST, Expiratory Pressure 6, Inspiratory Pressure 18, Phlebotomy Draw Site RIGHT RADIAL 07/15/16 0625: pH 7.25 *L, pCO2 44, pO2 82, HCO3 19 L, ABG O2 Sat (Measured) 95.0 L, P-50 ( Temp Corrected) Y, Carboxyhemoglobin 0.5 L, O2 Concentration % 100%, Temperature 98.0, O2 Delivery Method NRB, Phlebotomy Draw Site LEFT RADIAL 07/15/16 0410: Anion Gap 15, Estimated GFR > 60, Glucose 126 H, Calcium 7.6 L, Phosphorus 3.5 , Magnesium 1.9, Total Bilirubin 1.2, AST 220 H, ALT 97 H, Troponin I 0.05, Albumin 3.3 L, Triglycerides 120, Cholesterol 121, LDL Cholesterol, Calc 46 L, HDL Cholesterol 51, Cholesterol/HDL Ratio 2, CBC w Diff MAN DIFF ORDERED, RBC 4.86, MCV 89.6, MCH 30.0, RDW 13.0, MPV 8.9, Gran % 95.5 H, Lymphocytes % 1.8 L, Monocytes % 2.7, Eosinophils % 0, Basophils % 0 L, Absolute Granulocytes 24.8 H, Segmented Neutrophils 79 H, Band Neutrophils 17 H, Absolute Lymphocytes 0.5 L, Lymphocytes 3 L, Monocytes 1 L, Absolute Monocytes 0.7 H, Absolute Eosinophils 0, Absolute Basophils 0, Platelet Estimate ADEQUATE, Polychromasia 1+, Ovalocytes FEW, PUBS MCHC 33.5, Fld Total RBCs Counted 100 07/14/16 2310: Urine Opiates Screen < 100.00, Methadone Screen < 40, Barbiturate Screen < 60, Ur Phencyclidine Scrn < 6.00, Amphetamines Screen < 100, U Benzodiazepines Scrn < 85, Urine Cocaine Screen < 50, Urine Cannabis Screen < 5.00 07/14/16 2300: Troponin I Cancelled 07/14/162199: Lactic Acid 1.0 07/14/162199: Anion Gap 15, Estimated GFR > 60, Glucose 175 H, Calcium 7.2 L, Phosphorus 4.5 , Magnesium 1.6, Total Bilirubin 1.5 H, AST 161 H, ALT 75 H, Troponin I 0.09, Albumin 3.2 L, Prolactin 5.0, Urinalysis LIGHT H, Urine Color YEL, Urine Clarity HAZY H, Urine pH 5.5, Ur Specific [place] 1.025, Urine Protein 100 H, Urine Ketones NEG, Urine Nitrite NEG, Urine Bilirubin NEG@ICTO, Urine Urobilinogen 0.2, Ur Leukocyte Esterase NEG, Ur Microscopic SEDIMENT EXAMINED, Urine RBC >75 H, Urine WBC 3-5 H, Ur Epithelial Cells MOD H, Hyaline Casts 1- 3 H, Urine Mucus FEW, Urine Hemoglobin LARGE H, Urine Glucose NEG 07/14/16 1825: Virus Culture Pending 07/14/16 1712: TSH Cancelled, Free T4 Cancelled 07/14/16 1700: Anion Gap 17 H, Estimated GFR 55 L, BUN/Creatinine Ratio 23.0, Glucose 169 H, Lactic Acid 1.9, Calcium 8.9, Total Bilirubin 1.7 H, Direct Bilirubin 0.9 H, AST 119 H, ALT 72 H, Alkaline Phosphatase 90, Troponin I 0.13 *H, Pro-B- Natriuretic Pept 3370 H, Total Protein 6.4, Albumin 3.6, Globulin 2.8, Albumin/ Globulin Ratio 1.3, TSH 2.480, Free T4 1.49, PT 15.6 H, INR 1.49 H, APTT 33, CBC w Diff MAN DIFF ORDERED, RBC 4.76, MCV 87.2, MCH 29.9, RDW 12.4, MPV 9.1, Gran % 93.3 H, Lymphocytes % 3.3 L, Monocytes % 3.3, Eosinophils % 0, Basophils % 0.1, Absolute Granulocytes 22.1 H, Segmented Neutrophils 82 H, Band Neutrophils 14 H, Absolute Lymphocytes 0.8 L, Lymphocytes 2 L, Monocytes 2, Absolute Monocytes 0.8 H, Absolute Eosinophils 0, Absolute Basophils 0, Platelet Estimate ADEQUATE, Normocytic RBCs VERIFIED, Normochromic RBCs VERIFIED , PUBS MCHC 34.2, Hepatitis A IgM Ab NONREACTIVE, Hep Bs Antigen NONREACTIVE, Hep B Core IgM Ab Conf NONREACTIVE, Hepatitis C Antibody NONREACTIVE 07/14/16 1645: pH 7.44, pCO2 29 L, pO2 92, HCO3 19 L, ABG O2 Sat (Measured) 94.0 L, P-50 ( Temp Corrected) Y, Carboxyhemoglobin 0.9 L, O2 Concentration % 100%, Temperature 105.7 H, O2 Delivery Method NRB, Phlebotomy Draw Site RIGHT RADIAL Microbiology 07/14 2309 URINE ROUT: Legionella Antigen - COMP 07/14 2309 URINE ROUT: Streptococcus pneumoniae Antigen (M - COMP 07/14 2054 UPPER RESP: Surveillance Culture - COMP 07/14 2054 GI: Surveillance Culture - COMP Recent Imaging Studies: Echocardiogram revealed CONCLUSIONS Normal left and right ventricular systolic function. No significant valvular abnormalities noted. Assessment/Plan Assessment/Plan In summary this 65-year-old female without any previous cardiac history, nondiabetic reformed smoker nonhypertensive but history of venous and arterial disease on the right leg was admitted with the following problems 1. Altered mental status likely due to sepsis 2. Respiratory insufficiency requiring BiPAP 3. History of sleep apnea 4. Minimal troponin elevation consistent with demand ischemia 5. Reported the PVD/venous insufficiency 6. Abnormal LFTs 7. Chronic lower extremity nonhealing wound 8. Sinus tachycardia Her echocardiogram revealed normal left and right ventricular systolic function without pulmonary hypertension. A chest x-ray suggests some airspace disease degree in the right upper lobe. A question of pulmonary congestion is suggested. The patient may benefit from low-dose diuretics and low-dose beta blockers. I would probably administered Lasix 20 mg iv twice a day for 24-48 hours and then 20 mg once a day if needed. Add metoprolol tartrate 25 mg every 8 hours. She will definitely need cardiac workup as an outpatient particularly associated with peripheral arterial disease. For now there is the treatment for sepsis, believed to be cellulitis, possibly early pneumonic process or congestive heart failure. Of note she had significant positive intake on her in intake output summary and this might have caused some mild pulmonary congestion. Continue telemetry? Yes
[2016-07-16 16:00] VITALS: BP 116/68
--- NOTE | 2016-07-16 17:00 | MRI REPORT ---
EXAMINATION: MR ANKLE WITHOUT AND WITH CONTRAST, RIGHT CLINICAL INFORMATION: History of bimalleolar ankle fracture and infected hardware. Open right lower extremity wound. X-ray suggestive of distal fibular osteomyelitis. Presumptive diagnosis: Cellulitis with possible osteomyelitis right lower extremity. COMPARISON: X-rays of the right ankle on 07/15/2016 and 04/05/2014. MRI of the right ankle 06/10/2010. TECHNIQUE: MRI of the right ankle was performed before and after the intravenous administration of 20 mL Magnevist using routine sequences. FINDINGS: There is mild post traumatic deformity of the distal fibula with some magnetic susceptibility artifact related to prior surgery. There is magnetic susceptibility artifact in the region of the medial malleolus as well. There is a soft tissue defect lateral to the distal fibular diametaphysis. There are no definite bony destructive changes but there is subtle patchy bone marrow edema in the distal fibular diametaphysis. There may be subtle enhancement in this region of bone marrow edema. The edema is nonspecific and could be reactive. Osteomyelitis appears less likely but cannot be entirely excluded. There is diffuse subcutaneous edema, most prominent medially. Limited evaluation of the muscles and tendons is unremarkable. There is focal cystic change in the medial talar dome. There are regions of cartilage thinning in the ankle joint. IMPRESSION: Subtle patchy bone marrow edema in the distal fibular diametaphysis which is most likely reactive but osteomyelitis cannot be entirely excluded.
[2016-07-17] VITALS: BP 126/80
[2016-07-17 04:54] LABS: ABSOLUTE BASOPHIL COUNT 0 /CUMM (0.0-0.2); ABSOLUTE EOSINOPHIL COUNT 0 /CUMM (0.0-0.7); ABSOLUTE LYMPH COUNT 0.9 /CUMM (1.2-3.4); ABSOLUTE MONOCYTE COUNT 0.9 /CUMM (0.10-0.60); BASOPHIL % 0 % (0.0-2.0); EOSINOPHIL % 0 % (0-5); GRANULOCYTE % 88.1 % (42.2-75.2); HEMATOCRIT 37.6 % (37-47); MEAN CORPUSCULAR HGB 29.9 PG (27.0-31.0); MEAN PLATELET VOLUME 9.5 FL (7.4-10.4); PLATELET COUNT 183 /CUMM (130-400); RBC DISTRIBUTION WIDTH 13.1 % (11.5-14.5); RED BLOOD CELL CT 4.27 /CUMM (4.20-5.40); WHITE BLOOD CELL COUNT 14.7 /CUMM (4.8-10.8)
[2016-07-17 04:57] LABS: PT 12.6 SEC (9.4-12.5)
[2016-07-17 07:30] VITALS: BP 120/68
--- NOTE | 2016-07-17 08:02 | PN- Wound Care ---
Subjective Subjective: She feels better with decreased shortness of breath. MRI is suggestive but not definitive for osteomyelitis. Biopsy is pending. Patient is developing more expansive areas of epidermal lysis Objective Vital Signs and I&Os Vital Signs Result Date Time Pulse Ox 95 07/17 552 O2 Delivery Nasal Cannula 07/17 552 O2 Flow Rate 45% 07/17 552 B/P 126/80 07/17 Temp 98.8 07/17 Pulse 96 07/17 Resp 25 07/17 Intake & Output 07/17 0000 07/16 1600 07/16 0800 Intake Total 440 572 270 Output Total 295 800 315 Balance 145 -228 -45 Intake, IV 80 92 150 Intake, Oral 360 480 120 Number 1 1 Bowel Movements Output, Urine 295 800 315 Patient 266 lb Weight Areas of erythema appeared to be resolving but there is an extensive medial area of epidermal lysis with serous drainage. Impression/Plan Impression/Plan Impression/Plan: 65-year-old woman with chronic nonhealing right lateral malleolar ulcer thought primarily due to venous hypertension and venous insufficiency is admitted with acute cellulitis complicated by septic shock and secondary congestive heart failure due to volume resuscitation. Cover areas of epidermal lysis with Adaptic and avoid friction and shear to prevent desquamation. Continue leg elevation. Await decision regarding bone biopsy
--- NOTE | 2016-07-17 08:53 | PN- CRCU ---
Subjective HPI/Critical Care Issues: pt seen and examined CXR Bilateral peribronchial thickening and interstitial airspace disease, greatest in the right upper lobe. There is also increased fullness at the right hilar region. Findings are nonspecific but given the short interval development may be related to edema. Dyspnea improved MRI suggestive of osteomyelitis but inconclusive No n/v/d/c no cp Objective Current Medications: Current Medications Sig/Melisa Start time Last Medication Dose Route Stop Time Status Admin Acetaminophen 650 MG Q4P PRN 07/16 0945 AC 07/16 PO 1628 Acetaminophen 1,000 MG Q6P PRN 07/14 2015 DC 07/16 N/A 1 UNIT IV 0058 Aspirin 81 MG DAILY 07/15 1207 AC 07/16 PO 0847 Cefazolin Sodium 2 GM IQ8 07/16 0000 AC 07/17 N/A 1 UNIT IV 0749 Dextrose/Sodium 1,000 ML Q13H 07/17 0000 AC 07/16 Chloride IV 07/17 1259 2332 Furosemide 20 MG BID 07/16 1110 AC 07/16 IV 2122 Heparin Sodium 5,000 UNIT Q8 07/14 2200 AC 07/17 (Porcine) SC 0642 Levothyroxine Sodium 0.175 MG DAILY AC 07/16 0700 AC 07/17 PO 0642 Metoprolol Tartrate 25 MG Q8 07/16 1400 AC 07/16 PO 2359 Nystatin 1 IZZY BID PRN 07/15 0900 AC TOP Vital Signs & I&O Last 24 Hrs of Vitals and I&O: Vital Signs Date Time Temp Pulse Resp B/P Pulse O2 O2 Flow FiO2 Ox Delivery Rate 07/17 0800 94 45% 07/17 0730 98.9 84 24 120/68 94 45% 07/17 0553 95 Nasal 45% Cannula 07/17 0400 94 Nasal 45% Cannula 07/17 0019 97 Nasal 45% Cannula 07/17 0000 98.8 96 25 126/80 94 Nasal 45% Cannula 07/17 0000 96 Nasal 45% Cannula 07/16 2359 102 126/80 07/16 2000 94 Nasal 45% Cannula 07/16 1727 97.9 07/16 1628 99.6 07/16 1600 99 55% 07/16 1600 99.7 92 22 116/68 99 55% 07/16 1309 103 112/68 07/16 1200 95 Nasal 70% Cannula 07/16 1107 97 Nasal 80% Cannula Intake & Output 07/17 1600 07/17 0800 07/17 0000 Intake Total 660 440 Output Total 1300 295 Balance -640 145 Intake, IV 660 80 Intake, Oral 360 Output, Urine 1300 295 Exam Other Physical Findings: gen awake heent high flow o2 cvs s1, s2 lungs transmitted, reduced bs bilaterally, rare rhonchi abd obese ext dressing intact Results Last 24 Hrs of Lab Results: Laboratory Tests 07/17/16 0415: Anion Gap 14, Estimated GFR > 60, Glucose 145 H, Calcium 8.7, Phosphorus 1.9 L , Magnesium 2.0, Total Bilirubin 0.8, AST 160 H, ALT 95 H, Albumin 3.0 L, PT 12.6 H, INR 1.20 H, CBC w Diff MAN DIFF ORDERED, RBC 4.27, MCV 88.0, MCH 29.9, RDW 13.1, MPV 9.5, Gran % 88.1 H, Lymphocytes % 6.0 L, Monocytes % 5.9, Eosinophils % 0, Basophils % 0 L, Absolute Granulocytes 13.0 H, Segmented Neutrophils 84 H, Band Neutrophils 4, Absolute Lymphocytes 0.9 L, Lymphocytes 8 L, Monocytes 4, Absolute Monocytes 0.9 H, Absolute Eosinophils 0, Absolute Basophils 0, Platelet Estimate ADEQUATE, Polychromasia 1+, Poikilocytosis 1+, Ovalocytes 1+, Stomatocytes FEW, PUBS MCHC 34.0, Fld Total RBCs Counted 100 Impression/Plan Impression/Plan Impression/Plan: Impression 65 year old woman * Acute hypoxemic respiratory failure, likely fluid overload * sepsis likely secondary to osteomyelitis Plan Respiratory - o2 supplementation, negative fluid balance goal ID - ID consultation appreciated, Cefazolin 2g IV q8h, podiatry and vascular appreciated, MRI suggestive of osteomyelitis but inconclusive, biopsy/OR per podiatry CVS -monitor hemodynamics Heme - monitor cbc, coags Metabolic - ins/outs, creatinine, electrolytes Alimentary - aspiration precautions, nutrition evaluation Neuro - no active issues DVT prophylaxis at all times TTS 35 min
--- NOTE | 2016-07-17 12:12 | PN- Cardiology ---
Subjective Subjective: Resting comfortably this morning. Denies shortness of breath. Objective Vital Signs and I&Os Vital Signs Date Time Temp Pulse Resp B/P Pulse O2 O2 Flow FiO2 Ox Delivery Rate 07/17 0800 94 45% 07/17 0730 98.9 84 24 120/68 94 45% 07/17 0553 95 Nasal 45% Cannula 07/17 0400 94 Nasal 45% Cannula 07/17 0019 97 Nasal 45% Cannula 07/17 0000 98.8 96 25 126/80 94 Nasal 45% Cannula 07/17 0000 96 Nasal 45% Cannula 07/16 2359 102 126/80 07/16 2000 94 Nasal 45% Cannula 07/16 1727 97.9 07/16 1628 99.6 07/16 1600 99 55% 07/16 1600 99.7 92 22 116/68 99 55% 07/16 1309 103 112/68 07/16 1200 95 Nasal 70% Cannula Intake & Output 07/17 1600 07/17 0800 07/17 0000 07/16 1600 07/16 0800 07/16 0000 Intake Total 660 440 572 270 420 Output Total 1300 295 800 315 450 Balance -640 145 -228 -45 -30 Intake, IV 660 80 92 150 Intake, Oral 360 480 120 420 Number 1 1 3 Bowel Movements Output, Urine 1300 295 800 315 450 Patient 266 lb Weight Physical Exam: General: no apparent distress. On nasal cannula. Eyes: No obvious scleral icterus. HEENT: No jugular venous distention or abnormal jugular venous pulsations. Cardiovascular: Normal intensity S1/S2. Regular. Respiratory: No rales or rhonchi Abdomen: no guarding or rebound tenderness. Musculoskeletal: No cyanosis noted, right lower extremity bandage noted with trace edema Skin: Right lower extremity erythema noted, warm Current Medications: Current Medications Sig/Melisa Start time Last Medication Dose Route Stop Time Status Admin Acetaminophen 650 MG Q4P PRN 07/16 0945 AC 07/16 PO 1628 Aspirin 81 MG DAILY 07/15 1207 AC 07/17 PO 1001 Cefazolin Sodium 2 GM IQ8 07/16 0000 AC 07/17 N/A 1 UNIT IV 0749 Dextrose/Sodium 1,000 ML Q13H 07/17 0000 DC 07/16 Chloride IV 07/17 1259 2332 Furosemide 20 MG BID 07/16 1110 AC 07/17 IV 1001 Heparin Sodium 5,000 UNIT Q8 07/14 2200 AC 07/17 (Porcine) SC 0642 Levothyroxine Sodium 0.175 MG DAILY AC 07/16 0700 AC 07/17 PO 0642 Metoprolol Tartrate 25 MG Q8 07/16 1400 AC 07/16 PO 2359 Nystatin 1 IZZY BID PRN 07/15 0900 AC TOP Potassium Chloride 40 MEQ ONCE ONE 07/17 1100 DC 07/17 PO 07/17 1101 1100 Results Last 48 Hrs of Labs/Mics: Laboratory Tests 07/17/16 0415: Anion Gap 14, Estimated GFR > 60, Glucose 145 H, Calcium 8.7, Phosphorus 1.9 L , Magnesium 2.0, Total Bilirubin 0.8, AST 160 H, ALT 95 H, Albumin 3.0 L, PT 12.6 H, INR 1.20 H, CBC w Diff MAN DIFF ORDERED, RBC 4.27, MCV 88.0, MCH 29.9, RDW 13.1, MPV 9.5, Gran % 88.1 H, Lymphocytes % 6.0 L, Monocytes % 5.9, Eosinophils % 0, Basophils % 0 L, Absolute Granulocytes 13.0 H, Segmented Neutrophils 84 H, Band Neutrophils 4, Absolute Lymphocytes 0.9 L, Lymphocytes 8 L, Monocytes 4, Absolute Monocytes 0.9 H, Absolute Eosinophils 0, Absolute Basophils 0, Platelet Estimate ADEQUATE, Polychromasia 1+, Poikilocytosis 1+, Ovalocytes 1+, Stomatocytes FEW, PUBS MCHC 34.0, Fld Total RBCs Counted 100 07/16/16 0508: Anion Gap 12, Estimated GFR > 60, Glucose 129 H, Calcium 8.4, Phosphorus 1.8 L , Magnesium 2.1, Total Bilirubin 0.9, AST 208 H, ALT 115 H, Albumin 3.1 L, CBC w Diff MAN DIFF ORDERED, RBC 4.42, MCV 88.3, MCH 29.8, RDW 12.8, MPV 9.4, Gran % 91.5 H, Lymphocytes % 4.1 L, Monocytes % 4.4, Eosinophils % 0, Basophils % 0 L, Absolute Granulocytes 14.7 H, Segmented Neutrophils 82 H, Band Neutrophils 11 H, Absolute Lymphocytes 0.7 L, Lymphocytes 2 L, Monocytes 5, Absolute Monocytes 0.7 H, Absolute Eosinophils 0, Absolute Basophils 0, Platelet Estimate ADEQUATE, Polychromasia 1+, Ovalocytes FEW, PUBS MCHC 33.7, Fld Total RBCs Counted 100 Recent Imaging Studies: Telemetry tracings were personally reviewed and shows sinus rhythm with a short SVT run Assessment/Plan Assessment/Plan 1. Altered mental status likely due to sepsis/osteomyelitis, improving 2. Respiratory insufficiency with volume overload requiring BiPAP, improving 3. History of sleep apnea 4. Minimal troponin elevation consistent with demand ischemia 5. Reported the PVD/venous insufficiency 6. Abnormal LFTs 7. Chronic lower extremity nonhealing wound 8. Sinus tachycardia, improved Patient is resting comfortably and denies dyspnea. Echocardiogram is grossly normal and doubts congestive heart failure although there was some concern for some noncardiogenic pulmonary volume overload which seems to have improved. Would change the Lasix to 20 mg by mouth daily. The abnormal LFTs appear to be slowly improving. She remains on IV antibiotics. Continue the oral metoprolol. Preet Serrato MD [facility] Continue telemetry? Yes
--- NOTE | 2016-07-17 12:25 | PN- Infect Dx ---
Subjective Subjective: Afebrile. She feels well with decreased pain in the right leg and with no complaints of shortness of breath. Objective Last 24 Hrs of Vital Signs/I&O Vital Signs Date Time Temp Pulse Resp B/P Pulse O2 O2 Flow FiO2 Ox Delivery Rate 07/17 0800 94 45% 07/17 0730 98.9 84 24 120/68 94 45% 07/17 0553 95 Nasal 45% Cannula 07/17 0400 94 Nasal 45% Cannula 07/17 0019 97 Nasal 45% Cannula 07/17 0000 98.8 96 25 126/80 94 Nasal 45% Cannula 07/17 0000 96 Nasal 45% Cannula 07/16 2359 102 126/80 07/16 2000 94 Nasal 45% Cannula 07/16 1727 97.9 07/16 1628 99.6 07/16 1600 99 55% 07/16 1600 99.7 92 22 116/68 99 55% 07/16 1309 103 112/68 Intake & Output 07/17 1600 07/17 0800 07/17 0000 Intake Total 660 440 Output Total 1300 295 Balance -640 145 Intake, IV 660 80 Intake, Oral 360 Output, Urine 1300 295 Physical Exam Other Physical Findings: She appears comfortable in no acute distress Lungs are clear Heart regular rhythm with no murmur Extremities right leg erythema persists Edwards catheter remains in place Results Last 24 Hours of Lab Results: Laboratory Tests 07/17 414 Chemistry Sodium (137 - 145 mmol/L) 139 Potassium (3.5 - 5.1 mmol/L) 3.5 Chloride (98 - 107 mmol/L) 98 Carbon Dioxide (22 - 30 mmol/L) 26 Anion Gap (5 - 16) 14 BUN (7 - 17 mg/dL) 20 H Creatinine (0.5 - 1.0 mg/dL) 0.7 Estimated GFR (>60 ml/min) > 60 Glucose (65 - 99 mg/dL) 145 H Calcium (8.4 - 10.2 mg/dL) 8.7 Phosphorus (2.5 - 4.5 mg/dL) 1.9 L Magnesium (1.6 - 2.3 mg/dL) 2.0 Total Bilirubin (0.2 - 1.3 mg/dL) 0.8 AST (14 - 36 U/L) 160 H ALT (9 - 52 U/L) 95 H Albumin (3.5 - 5.0 g/dL) 3.0 L Coagulation PT (9.4 - 12.5 SEC) 12.6 H INR (0.90 - 1.19) 1.20 H Hematology CBC w Diff MAN DIFF ORDERED WBC (4.8 - 10.8 /CUMM) 14.7 H RBC (4.20 - 5.40 /CUMM) 4.27 Hgb (12.0 - 16.0 G/DL) 12.8 Hct (37 - 47 %) 37.6 MCV (81.0 - 99.0 FL) 88.0 MCH (27.0 - 31.0 PG) 29.9 RDW (11.5 - 14.5 %) 13.1 Plt Count (130 - 400 /CUMM) 183 MPV (7.4 - 10.4 FL) 9.5 Gran % (42.2 - 75.2 %) 88.1 H Lymphocytes % (20.5 - 51.1 %) 6.0 L Monocytes % (1.7 - 9.3 %) 5.9 Eosinophils % (0 - 5 %) 0 Basophils % (0.0 - 2.0 %) 0 L Absolute Granulocytes (1.4 - 6.5 /CUMM) 13.0 H Segmented Neutrophils (42.2 - 75.2 %) 84 H Band Neutrophils (0.0 - 5.0 %) 4 Absolute Lymphocytes (1.2 - 3.4 /CUMM) 0.9 L Lymphocytes (20.5 - 51.1 %) 8 L Monocytes (1.7 - 9.3 %) 4 Absolute Monocytes (0.10 - 0.60 /CUMM) 0.9 H Absolute Eosinophils (0.0 - 0.7 /CUMM) 0 Absolute Basophils (0.0 - 0.2 /CUMM) 0 Platelet Estimate (ADEQUATE) ADEQUATE Polychromasia 1+ Poikilocytosis 1+ Ovalocytes 1+ Stomatocytes FEW PUBS MCHC (33.0 - 37.0 G/DL) 34.0 Other Body Source Fld Total RBCs Counted (%) 100 Last 24 Hours of Edwin Results: Blood cultures July 14 remain negative Recent Imaging Studies: MRI of the right ankle July 16 reveals subtle patchy bone marrow edema in the distal fibula diametaphysis Assessment/Plan Impression: Improving with temperatures now normal and white blood cell count continuing to decrease on Cefazolin Day 3 of treatment for sepsis secondary to right leg cellulitis, with no evidence for pneumonia on CT scan. The MRI results are noted and are equivocal for osteomyelitis, but, based on her history, I still suspect osteomyelitis and feel that a bone biopsy should be done. As discussed this would be best done off antibiotics; therefore she can complete her course of antibiotics for her cellulitis and then plan the bone biopsy once she has been off antibiotics for at least 3 days. Suggestion: 1. Continue elevation of the right leg 2. Remove Edwards catheter 3. Further management of fluid status per Cardiology 4. Would defer bone biopsy until after she has completed her antibiotics as noted above (can do as outpatient) 5. Continue Cefazolin
--- NOTE | 2016-07-17 14:08 | PN- Resident CRCU ---
Subjective HPI/CRCU Issues: Patient seen and examined. She is seen lying flat in bed maintained on supplemental oxygen via nasal cannula resting comfortably. She appears to be in no acute distress. At her bedside is her whom is up-to-date about her medical condition and has no questions at this time. She reports no increased shortness of breath and a mild occasional cough. Otherwise she does admit that her leg looks less red than in previous days and is now less painful. Additionally she denies any headache, fever, chills, chest pain, palpitations, nausea, vomiting, diarrhea. No overnight events reported. Objective Vital Signs & I&O Last 8 Hrs of Vitals and I&O: Intake & Output 07/17 1600 Intake Total Output Total Balance Patient 118.955 kg Weight Vitals: - Temperature: 99.1 - Heart Rate: 76-98 - Respiratory Rate: 25-32 - Systolic Blood pressure: 107-125 - Diastolic Blood pressure: 60-73 - Oxygen Saturation: 91-96% on 4.0 L via nasal cannula Exam General Appearance: well developed/nourished, no apparent distress, alert, awake , comfortable, obese Other Physical Findings: General -developed, well nourished obese female in no acute distress HEENT - NCAT, PERRL, EOMI, anicteric sclera, nasal cannula in place Cardio - S1, S2 w/o murmurs/gallops/rubs Resp - CTA bilaterally w/o wheezing/rhochi/crackles GI - soft, nontender, nondistended, bowel sounds present Neuro - Awake and alert, CN II - XII grossly intact Extremities - no edema, pulses intact, grossly erythematous distal right lower extremity with dressed chronic open wound on the lateral aspect Current Medications: Current Medications Sig/Melisa Start time Last Medication Dose Route Stop Time Status Admin Acetaminophen 650 MG Q4P PRN 07/16 0945 AC 07/17 PO 1309 Aspirin 81 MG DAILY 07/15 1207 AC 07/17 PO 1001 Cefazolin Sodium 2 GM IQ8 07/16 0000 AC 07/17 N/A 1 UNIT IV 0749 Dextrose/Sodium 1,000 ML Q13H 07/17 0000 DC 07/16 Chloride IV 07/17 1259 2332 Furosemide 20 MG DAILY 07/18 1000 AC PO Furosemide 20 MG BID 07/16 1110 DC 07/17 IV 1001 Heparin Sodium 5,000 UNIT Q8 07/14 2200 AC 07/17 (Porcine) SC 1309 Levothyroxine Sodium 0.175 MG DAILY AC 07/16 0700 AC 07/17 PO 0642 Metoprolol Tartrate 25 MG Q8 07/16 1400 AC 07/17 PO 1311 Nystatin 1 IZZY BID PRN 07/15 0900 AC TOP Potassium Chloride 40 MEQ ONCE ONE 07/17 1100 DC 07/17 PO 07/17 1101 1100 Impression/Plan Impression/Problem List Impression: Case was discussed with attending, infectious disease network consultant, and podiatry network consultant and it was determined that given the patients current sepsis secondary to right lower extremity cellulitis and possible underlying osteomyelitis it would be fritz for the patient to complete her course of antibiotics to resolve the cellulitis infection as to obtain a proper bone biopsy as an outpatient soon after discharge as biopsy should be obtained through healthy overlying skin. Bone biopsy is to be deferred at this time. She is to be continued on cefazolin for this. Otherwise she is tolerating supplemental oxygen via nasal cannula well area. MRI of the right lower extremity obtained yesterday was inconclusive for osteomyelitis. Problem List: -Acute hypoxic respiratory failure, now stable -Severe Sepsis, now stable -Right Lower Extremity Cellulitis, on Cefazolin -Possible Osteomyelitis of right lower extremity -Elevated tropomoins, most likely demand ischemia -Metabolic acidosis, resolved -Transaminitis Respitory/Infectious Disease: Patient with a history of obstructive sleep apnea on CPAP seen for evaluation of altered mental status. Found to be in moderate respiratory distress and hypoxic. Respiratory distress most likely due to sepsis secondary to right lower extremity cellulitis/possible osteomyelitis. Patient required 6L normal saline fluid resuscitation. -Maintain supplemental oxygen, keep above 92% -Antibiotics per ID consult -Podiatry consult -Wound Care consult -Vascular Surgery consult -Infectious Disease consult -Follow up cultures & sensitivities Cardiovascular: Patient with a history of peripheral vascular disease s/p stents. Troponins and EKG were negative time three. Echocardiogram was ordered. -ECHO: EF 60-65%, no wall motion abnormalities -Aspirin 81mg PO Daily -Cardiology Consult Diet - Regular diet, NPO overnight for surgery DVT PPx - Heparing SC Code Status - FULL CODE Problem List: 1. Cellulitis 2. Sepsis 3. Hypoxia Pain Ratin Tomorrow's Labs & Rationales: Complete blood count ICU bundle Chest x-ray Plan DVT/Prophylaxis: pharmacological
[2016-07-17 16:00] VITALS: BP 120/80
[2016-07-18] VITALS: BP 106/60
[2016-07-18 05:34] LABS: ABSOLUTE BASOPHIL COUNT 0 /CUMM (0.0-0.2); ABSOLUTE EOSINOPHIL COUNT 0 /CUMM (0.0-0.7); ABSOLUTE GRANULOCYTE CT 10.9 /CUMM (1.4-6.5); ABSOLUTE LYMPH COUNT 1.1 /CUMM (1.2-3.4); BASOPHIL % 0 % (0.0-2.0); EOSINOPHIL % 0 % (0-5); HEMATOCRIT 38.8 % (37-47); MEAN CORPUSCULAR HGB 29.6 PG (27.0-31.0); MEAN CORPUSCULAR HGB CONC 33.4 G/DL (33.0-37.0); MEAN CORPUSCULAR VOLUME 88.5 FL (81.0-99.0); MEAN PLATELET VOLUME 8.9 FL (7.4-10.4); PLATELET COUNT 183 /CUMM (130-400); RBC DISTRIBUTION WIDTH 13.1 % (11.5-14.5); RED BLOOD CELL CT 4.38 /CUMM (4.20-5.40)
--- NOTE | 2016-07-18 07:36 | RADIOLOGY REPORT ---
EXAMINATION: XR PORTABLE CHEST CLINICAL INFORMATION: Assessment of worsening respiratory disease COMPARISON: July 16, 2016 and July 14, 2016 TECHNIQUE: Portable view of the chest was obtained. FINDINGS: There are small lung volumes. There is again noted to be bilateral regions of interstitial prominence with more confluent disease seen within the right upper lobe and left lung base. Study limited due to underpenetration and lordotic technique.. Heart normal size. No pneumothorax or significant pleural effusion. IMPRESSION: Bilateral regions of interstitial and airspace disease consistent with pulmonary edema of cardiogenic or noncardiogenic etiology. Region of more confluent disease may be related to pneumonitis.
[2016-07-18 08:00] VITALS: BP 116/72
--- NOTE | 2016-07-18 11:49 | PN- Pulmonary ---
Subjective HPI/Critical Care Issues: Patient seen and examined. She is seen lying flat in bed maintained on supplemental oxygen via nasal cannula resting comfortably. She appears to be in no acute distress. At her bedside is her whom is up-to-date about her medical condition and has no questions at this time. She reports no increased shortness of breath and a mild occasional cough. Otherwise she does admit that her leg looks less red than in previous days and is now less painful. Additionally she denies any headache, fever, chills, chest pain, palpitations, nausea, vomiting, diarrhea. No overnight events reported. Objective Current Medications: Current Medications Sig/Melisa Start time Last Medication Dose Route Stop Time Status Admin Acetaminophen 650 MG .STK-MED ONE 07/17 1304 DC PO 07/17 1305 Acetaminophen 650 MG Q4P PRN 07/16 0945 AC 07/17 PO 1309 Aspirin 81 MG DAILY 07/15 1207 AC 07/18 PO 1027 Cefazolin Sodium 2 GM IQ8 07/16 0000 AC 07/18 N/A 1 UNIT IV 0832 Furosemide 20 MG DAILY 07/18 1000 AC 07/18 PO 1027 Furosemide 20 MG BID 07/16 1110 DC 07/17 IV 1001 Heparin Sodium 5,000 UNIT Q8 07/14 2200 AC 07/18 (Porcine) SC 0608 Levothyroxine Sodium 0.175 MG DAILY AC 07/16 0700 AC 07/18 PO 0608 Metoprolol Tartrate 25 MG Q8 07/16 1400 AC 07/18 PO 0609 Nystatin 1 IZZY BID PRN 07/15 0900 AC TOP Potassium Chloride 40 MEQ ONCE ONE 07/18 0830 DC 07/18 PO 07/18 0831 1027 Laboratory Tests 07/18 07/17 0500 0415 Chemistry Sodium (137 - 145 mmol/L) 140 139 Potassium (3.5 - 5.1 mmol/L) 3.5 3.5 Chloride (98 - 107 mmol/L) 99 98 Carbon Dioxide (22 - 30 mmol/L) 27 26 Anion Gap (5 - 16) 14 14 BUN (7 - 17 mg/dL) 24 H 20 H Creatinine (0.5 - 1.0 mg/dL) 0.6 0.7 Estimated GFR (>60 ml/min) > 60 > 60 Glucose (65 - 99 mg/dL) 110 H 145 H Calcium (8.4 - 10.2 mg/dL) 8.8 8.7 Phosphorus (2.5 - 4.5 mg/dL) 2.4 L 1.9 L Magnesium (1.6 - 2.3 mg/dL) 2.1 2.0 Total Bilirubin (0.2 - 1.3 mg/dL) 0.7 0.8 AST (14 - 36 U/L) 144 H 160 H ALT (9 - 52 U/L) 87 H 95 H Albumin (3.5 - 5.0 g/dL) 3.1 L 3.0 L Coagulation PT (9.4 - 12.5 SEC) 12.6 H INR (0.90 - 1.19) 1.20 H Hematology CBC w Diff MAN DIFF ORDERED MAN DIFF ORDERED WBC (4.8 - 10.8 /CUMM) 13.0 H 14.7 H RBC (4.20 - 5.40 /CUMM) 4.38 4.27 Hgb (12.0 - 16.0 G/DL) 13.0 12.8 Hct (37 - 47 %) 38.8 37.6 MCV (81.0 - 99.0 FL) 88.5 88.0 MCH (27.0 - 31.0 PG) 29.6 29.9 RDW (11.5 - 14.5 %) 13.1 13.1 Plt Count (130 - 400 /CUMM) 183 183 MPV (7.4 - 10.4 FL) 8.9 9.5 Gran % (42.2 - 75.2 %) 84.0 H 88.1 H Lymphocytes % (20.5 - 51.1 %) 8.5 L 6.0 L Monocytes % (1.7 - 9.3 %) 7.5 5.9 Eosinophils % (0 - 5 %) 0 0 Basophils % (0.0 - 2.0 %) 0 L 0 L Absolute Granulocytes (1.4 - 6.5 /CUMM) 10.9 H 13.0 H Segmented Neutrophils (42.2 - 75.2 %) 84 H Band Neutrophils (0.0 - 5.0 %) 4 Absolute Lymphocytes (1.2 - 3.4 /CUMM) 1.1 L 0.9 L Lymphocytes (20.5 - 51.1 %) 8 L Monocytes (1.7 - 9.3 %) 4 Absolute Monocytes (0.10 - 0.60 /CUMM) 1.0 H 0.9 H Absolute Eosinophils (0.0 - 0.7 /CUMM) 0 0 Absolute Basophils (0.0 - 0.2 /CUMM) 0 0 Platelet Estimate (ADEQUATE) ADEQUATE ADEQUATE Normocytic RBCs VERIFIED Normochromic RBCs VERIFIED Polychromasia 1+ Poikilocytosis 1+ Ovalocytes 1+ Stomatocytes FEW PUBS MCHC (33.0 - 37.0 G/DL) 33.4 34.0 Other Body Source Fld Total RBCs Counted (%) 100 Vital Signs & I&O Last 24 Hrs of Vitals and I&O: Vital Signs Date Time Temp Pulse Resp B/P Pulse O2 O2 Flow FiO2 Ox Delivery Rate 07/18 0800 96 Nasal 3.0L Cannula 07/18 0800 97.6 86 24 116/72 06 Nasal 3.0L Cannula 07/18 0609 88 124/70 07/18 0400 94 Nasal 4.0L Cannula 07/18 0000 94 Nasal 4.0L Cannula 07/18 0000 98.5 74 20 106/60 94 Nasal 4.0L Cannula 07/17 2204 86 128/74 07/17 2000 94 Nasal 4.0L Cannula 07/17 1600 96 Nasal 4.0L Cannula 07/17 1600 97.8 83 20 120/80 96 Nasal 4.0L Cannula 07/17 1408 98.2 07/17 1311 95 98/56 07/17 1309 99.1 07/17 1200 Nasal 4.0L Cannula Intake & Output 07/18 1600 07/18 0800 07/18 0000 Intake Total 320 440 Output Total 375 225 Balance -55 215 Intake, IV 80 80 Intake, Oral 240 360 Output, Urine 375 225 Impression/Plan Impression/Plan Impression/Plan: Exam General Appearance: well developed/nourished, no apparent distress, alert, awake , comfortable, obese Other Physical Findings: General -developed, well nourished obese female in no acute distress HEENT - NCAT, PERRL, EOMI, anicteric sclera, nasal cannula in place Cardio - S1, S2 w/o murmurs/gallops/rubs Resp - CTA bilaterally w/o wheezing/rhochi/crackles GI - soft, nontender, nondistended, bowel sounds present Neuro - Awake and alert, CN II - XII grossly intact Extremities - no edema, pulses intact, grossly erythematous distal right lower extremity with dressed chronic open wound on the lateral aspect 65 year old woman * Resolved Acute hypoxemic respiratory failure, likely fluid overload improving * Sepsis likely secondary to osteomyelitis * Resolved altered mental status due to sepsis * Minimally elevated troponin probable demand ischemia * Peripheral PVD * Improving LFTs * Chronic lower extremity nonhealing wound * Improved sinus tachycardia RECOMMENDATION Continue present care Continue diuretics Antibiotics per infectious disease Slowly wean down oxygen Given one dose of intravenous Lasix today at 20 mg IV and topical her by mouth Aggressively replace potassium Patient can go to a regular floor if she is stable later
--- NOTE | 2016-07-18 12:52 | PN- Resident CRCU ---
Subjective HPI/CRCU Issues: Patient seen and examined. She is seen lying upright in bed maintained on supplemental oxygen via nasal cannula resting comfortably. She appears to be in no acute distress. At her bedside is her whom is up to take about her medical care and has no questions at this time. She states that she is comfortable with the current oxygen therpay. She admits to a new mild cough. Otherwise she has no complaints at this time. Additionally she denies any headache, fever, chills, chest pain, palpitations, increased shortness of breath, nausea, vomiting, diarrhea. No overnight events reported. Objective Vital Signs & I&O Last 8 Hrs of Vitals and I&O: Vitals: - Temperature: 97.6-98.5 - Heart Rate: 74-88 - Respiratory Rate: 20-26 - Systolic Blood pressure: 98-124 - Diastolic Blood pressure: 61-80 - Oxygen Saturation: 94-96% on 3.0 L via nasal cannula Exam General Appearance: well developed/nourished, no apparent distress, alert, awake , comfortable, obese Other Physical Findings: General -well-developed, well-nourished obese female in no acute distress HEENT - NCAT, PERRL, EOMI, anicteric sclera, nasal cannula Cardio - S1, S2 w/o murmurs/gallops/rubs Resp -rhonchi heard in bibasilar lung talbert, no crackles/wheezing GI - soft, nontender, nondistended, bowel sounds present Neuro - Awake and alert, CN II - XII grossly intact Extremities -2+ edema in bilateral lower extremities, distal pulses intact Current Medications: Current Medications Sig/Melisa Start time Last Medication Dose Route Stop Time Status Admin Acetaminophen 650 MG .STK-MED ONE 07/17 1304 DC PO 07/17 1305 Acetaminophen 650 MG Q4P PRN 07/16 0945 AC 07/17 PO 1309 Aspirin 81 MG DAILY 07/15 1207 AC 07/18 PO 1027 Cefazolin Sodium 2 GM IQ8 07/16 0000 AC 07/18 N/A 1 UNIT IV 0832 Furosemide 20 MG ONCE ONE 07/18 1230 DC IV 07/18 1231 Furosemide 20 MG DAILY 07/18 1000 AC 07/18 PO 1027 Furosemide 20 MG BID 07/16 1110 DC 07/17 IV 1001 Heparin Sodium 5,000 UNIT Q8 07/14 2200 AC 07/18 (Porcine) SC 0608 Levothyroxine Sodium 0.175 MG DAILY AC 07/16 0700 AC 07/18 PO 0608 Metoprolol Tartrate 25 MG Q8 07/16 1400 AC 07/18 PO 0609 Nystatin 1 IZZY BID PRN 07/15 0900 AC TOP Potassium Chloride 40 MEQ ONCE ONE 07/18 0830 DC 07/18 PO 07/18 0831 1027 Impression/Plan Impression/Problem List Impression: Patient continues to remain stable on current antibiotic and supplemental oxygen regimen. She remains afebrile with improving leukocytosis. Chest x-ray demonstrates possible pulmonary edema of unknown etiology. He is to be maintained on oral Lasix with supplementation of intravenous Lasix today. Plans to evalute possible osteomyelitis after resolution of overlying cellulitis are still in place. She reportedly uses CPAP at night at home for sleep apnea. Her will be bringing the machine in later today so the patient may use it at night. Patient to be transferred to the general medicine floor for further care once a bed is available. Problem List: -Acute hypoxic respiratory failure, now stable -Severe Sepsis, now stable -Right Lower Extremity Cellulitis, on Cefazolin -Possible Osteomyelitis of right lower extremity -Elevated tropomoins, most likely demand ischemia -Metabolic acidosis, resolved -Transaminitis Respitory/Infectious Disease: Patient with a history of obstructive sleep apnea on CPAP seen for evaluation of altered mental status. Found to be in moderate respiratory distress and hypoxic. Respiratory distress most likely due to sepsis secondary to right lower extremity cellulitis/possible osteomyelitis. Patient required 6L normal saline fluid resuscitation. -Maintain supplemental oxygen, keep above 92% -Antibiotics per ID consult -Podiatry consult -Wound Care consult -Vascular Surgery consult -Infectious Disease consult -Follow up cultures & sensitivities Cardiovascular: Patient with a history of peripheral vascular disease s/p stents. Troponins and EKG were negative time three. Echocardiogram was ordered. -ECHO: EF 60-65%, no wall motion abnormalities -Aspirin 81mg PO Daily -Cardiology Consult Diet - Regular diet DVT PPx - Heparing SC Code Status - FULL CODE Problem List: 1. Cellulitis 2. Sepsis Pain Ratin Tomorrow's Labs & Rationales: Complete blood count ICU bundle Plan DVT/Prophylaxis: pharmacological
[2016-07-18 16:00] VITALS: BP 112/70
[2016-07-18 18:25] VITALS: BP 142/90
[2016-07-19 00:01] VITALS: BP 120/70
--- NOTE | 2016-07-19 06:05 | PN- Housestaff ---
NIKO CHASE,MONICA 07/19/16 0604: Subjective Follow-up For: Cellulitis Subjective: Patient seen and examined at bedside with Dr. Tadeo. She was transferred from ICU last night. This morning patient is resting comfortably in bed with no new compalaints. She's in no acute distress. Reports that the erythema in the bottom of her right foot is slightly better. Denies any headache, fever, chills, chest pain, palpitations, increased shortness of breath, nausea, vomiting, diarrhea. Review of Systems Constitutional: Reports: see HPI. Objective Last 24 Hrs of Vital Signs/I&O Vital Signs Date Time Temp Pulse Resp B/P Pulse O2 O2 Flow FiO2 Ox Delivery Rate 07/19 0808 98.5 76 20 146/72 99 Room Air 07/19 0800 94 Nasal 3.0L Cannula 07/19 0604 160/96 07/19 0001 97.4 78 20 120/70 95 Nasal 3.0L Cannula 07/19 0000 Nasal 3.0L Cannula 07/18 2101 140/82 07/18 1825 98.4 82 22 142/90 95 Nasal 3.0L Cannula 07/18 1600 96 Nasal 3.0L Cannula 07/18 1600 98.8 84 26 112/70 96 Nasal 3.0L Cannula 07/18 1457 97.8 93 24 115/64 07/18 1200 96 Nasal 3.0L Cannula Intake & Output 07/19 1600 07/19 0800 07/19 0000 Intake Total 100 100 Output Total 200 Balance -100 100 Intake, Oral 100 100 Output, Urine 200 Physical Exam General Appearance: Alert, Oriented X3, Cooperative, No Acute Distress, Mild Distress Other Physical Findings: HEENT: NCAT, PERRL, EOMI, anicteric sclera, nasal cannula Cardio: S1, S2 w/o murmurs/gallops/rubs Resp: rhonchi heard in bibasilar lung talbert, no crackles/wheezing GI: soft, nontender, nondistended, bowel sounds present Neuro: Awake and alert, CN II - XII grossly intact Extremities: 2+ edema in bilateral lower extremities, distal pulses intact Current Medications: Current Medications Sig/Melisa Start time Last Medication Dose Route Stop Time Status Admin Acetaminophen 650 MG Q4P PRN 07/16 0945 AC 07/17 PO 1309 Aspirin 81 MG DAILY 07/15 1207 AC 07/19 PO 1020 Cefazolin Sodium 2 GM IQ8 07/16 0000 AC 07/19 N/A 1 UNIT IV 0746 Furosemide 20 MG ONCE ONE 07/18 1230 DC 07/18 IV 07/18 1231 1248 Furosemide 20 MG DAILY 07/18 1000 AC 07/19 PO 1020 Heparin Sodium 5,000 UNIT Q8 07/14 2200 AC 07/19 (Porcine) SC 0604 Levothyroxine Sodium 0.175 MG DAILY AC 07/16 0700 AC 07/19 PO 0604 Metoprolol Tartrate 25 MG Q8 07/16 1400 AC 07/19 PO 0604 Nystatin 1 IZZY BID PRN 07/15 0900 AC TOP Last 24 Hrs of Lab/Edwin Results Last 24 Hrs of Labs/Mics: Laboratory Tests 07/19/16 0650: Anion Gap 15, Estimated GFR > 60, BUN/Creatinine Ratio 40.0 H, CBC w Diff NO MAN DIFF REQ, RBC 4.59, MCV 88.5, MCH 29.6, RDW 13.0, MPV 9.4, Gran % 76.2 H, Lymphocytes % 12.7 L, Monocytes % 10.6 H, Eosinophils % 0.4, Basophils % 0.1, Absolute Granulocytes 7.4 H, Absolute Lymphocytes 1.2, Absolute Monocytes 1.0 H, Absolute Eosinophils 0, Absolute Basophils 0, PUBS MCHC 33.5 Assessment/Plan Assessment: 65 year old woman with PMH significant for 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 # Cellulitis and possible osteomyelitis of RLE Patient carries a history of PVD with stenting, right ankle bimalleolar fracture with infected hardware, and chronic lower extremity non healing wounds. She presented with a bilateral lower extremity edema with an open erythematous wound tender to palpation without warm/drainage on her right lateral malleolus. Xray of the leg was suspicious for distal fibula osteomyelitis. Records were obtained from the office of Dr. Clay and it was determined patient had MRI compatible stents. MRI was inconclusive for osteomyelitis, however. ID and Podiatry consultants determined that patient should finish her course of antibiotics for cellulitis before persuing a bone biopsy to assess for osteomyelitis as it would be more specific to obtain the tissue sample through uninfected skin. * Wound care/ID/Podiatry following, appreciate recs * Continue cefazolin (07/15-) 2mg IV Q8 - day 5 * Cont Lasix 20mg PO daily * Give an additional dose of Lasix 20mg IV per pulm rec # Severe sepsis most likely 2/2 cellulitis - Resolved Upon admission patient was febrile to 105.7 with leukcotyosis at 23.7, tachycardia up to 124, tachypnea up to 40, and hypotension as low as 90/54. consistent with severe sepsis. She was given intravenous fluid resusitation and started on antibiotics for right lower extremity cellulitis. Sepsis and respiratory distress rapidly improved with supplemental oxygen via bipap and 6.0L normal saline fluid resuscitation. Blood culture from 07/14 was positive for staph coag negative in one bottle only. All the blood and wound cultures were negative since then. * Follow above-mentioned plans for cellulitis * Vitals per protocol * CBC daily to trend WBC # Acute hypoxic respiratory failure - Resolved Most likely 2/2 sepsis. Patient also carries a h/o SARI. Patient was placed on BiPAP upon arrival to ED. Oxygen saturation range 86-93% on 100% FiO2 via nonrebreather. She was in moderate respiratory distress with wheezing on lung exam. ABG showed pH 7.44 / CO2 29 / O2 92 / HCO3 19. CXR was negative for acute cardiopulmonary disease. Patient was weaned off BiPAP in ICU and has been satting well on regular oxygen supplement since then. - Echo (07/15): Normal left and right ventricular systolic function. No significant valvular abnormalities noted. - CXR (07/18): Bilateral regions of interstitial and airspace disease consistent with pulmonary edema of cardiogenic or noncardiogenic etiology. Region of more confluent disease may be related to pneumonitis. * Vitals per shift * Maintain O2 sat above 92% * Oxygen support as needed, slowly taper * Cont diuresis as per above-mentioned plan # Transaminitis Most likely 2/2 shock liver in the setting of severe sepsis. LFTs trending down. * Cont to trend LFTs # Hypokalemia * Check BEP daily, trend K * Replete adequately - Regular diet - Mild pain pathway - DVTppx with SQ heparin - Full code Problem List: 1. Cellulitis Pain Ratin Pain Location: 0 Pain Goal: Remain pain free Pain Plan: Mild pathway Tomorrow's Labs & Rationales: CBC to watch for infection Consulting Request: Consulting Specialty: Thoracic/Vascular Surgery VASYL CID 07/24/16 1054: Attending MD Review Statement Attending Statement Attending MD Statement: examined this patient, discuss w/resident/PA/MEDICAL RESEARCH SCIENTIST, agreed w/resident/PA/MEDICAL RESEARCH SCIENTIST, reviewed EMR data (avail) Attending Assessment/Plan: Agree with the resident note. Appreciated ID and pulmonary input.
[2016-07-19 08:07] LABS: ABSOLUTE BASOPHIL COUNT 0 /CUMM (0.0-0.2); ABSOLUTE EOSINOPHIL COUNT 0 /CUMM (0.0-0.7); ABSOLUTE GRANULOCYTE CT 7.4 /CUMM (1.4-6.5); ABSOLUTE LYMPH COUNT 1.2 /CUMM (1.2-3.4); BASOPHIL % 0.1 % (0.0-2.0); EOSINOPHIL % 0.4 % (0-5); GRANULOCYTE % 76.2 % (42.2-75.2); HEMATOCRIT 40.7 % (37-47); MEAN CORPUSCULAR HGB 29.6 PG (27.0-31.0); MEAN CORPUSCULAR HGB CONC 33.5 G/DL (33.0-37.0); MEAN CORPUSCULAR VOLUME 88.5 FL (81.0-99.0); MEAN PLATELET VOLUME 9.4 FL (7.4-10.4); PLATELET COUNT 200 /CUMM (130-400); RED BLOOD CELL CT 4.59 /CUMM (4.20-5.40); WHITE BLOOD CELL COUNT 9.8 /CUMM (4.8-10.8)
[2016-07-19 08:08] VITALS: BP 146/72
--- NOTE | 2016-07-19 09:59 | Transfer of Care Summary ---
Hospital Course Course Hospital Course: 65 year old woman brought in by ambulance for evaluation of altered mental status and lethargy. Collateral information obtained at time of admission was obtained from her . She was reportedly in her normal state of health until morning prior to admission and was found by her appearing ill after he returned home from work. She was reportedly febrile but stayed in bed and went to sleep. THe following morning she remained lethargic and breathing heavily. She was found unresponsive by her that afternoon for which EMS services were contacted. PMHx: SARI on CPAP, Chronic lower extremity wounds, Right ankle bimalleolar fracture s/p ORIF, OM, PVD s/p stent, Phillips's Palsy, HLD, hypothyroidism, anxiety Patient was placed on bipap upon arrival to ED. Vital signs upon intial evaluation demonstrated temp 101.6-105.7, HR 100-124, RR 25-40, BP 90-108/54-66, pO2 86-93% on 100% FiO2 via nonrebreather. Physical examination demonstrated a alert woman in moderate respiratory distress with wheezing and bilateral lower extremity edema with an open erythematous wound tender to palpation without warm /drainage on her right lateral malleolus. Lab work was remarkable for WBC 23.7, BUN/Cr 23/1.0, Lactic Acid 1.9, AST/ALT 119/74, Troponin 0.13, BNP 3370, INR 1.49. ABG: pH 7.44 / CO2 29 / O2 92 / HCO3 19. EKG demonstrated Sinus tachycardia with t-wave inversion V2-V3. CXR/RLE XR were negative for acute cardiopulmonary disease but did show soft tissue swelling of RLE. CTA A/P showed gallstone. Blood/urine cultures were taken and she was given intravenous fluids and antibiotics and admitted to the ICU for further management. Problem List on Transfer: -Acute hypoxic respiratory failure, now stable -Severe Sepsis, now stable -SARI on CPAP -Right Lower Extremity Cellulitis, on Cefazolin -Possible Osteomyelitis of right lower extremity -Elevated tropomoins, most likely demand ischemia -Metabolic acidosis, resolved -Transaminitis Infectious Disease/Respiratory: History of PVD with stenting, right ankle bimalleolar fracture with infected hardware, and chronic lower extremity non healing wounds. Patient of Dr. Clay. Patient was febrile to 105.7 and found to have severe sepsis upon initial evaluation. She was given intravenous fluid resusitation and started on antibiotics for right lower extremity cellulitis. Sepsis and respiratory distress rapidly improved with supplemental oxygen via bipap and 6.0L normal saline fluid resuscitation. Wound care consult was placed and recommended local wound care. Xray of the right lower extremity was suspicious for distal fibula osteomyelitis. Records were obtained from the office of Dr. Clay and it was determined patient had MRI compatible stents. MRI was inconclusive for osteomyelitis. ID/Podiatry consultants determined that patient should finish her course of antibiotics for cellulitis before persuing a bone biopsy to assess for osteomyelitis as it would be more specific to obtain the tissue sample through uninfected skin. Cardiovascular: Patient with a history of peripheral vascular disease s/p stents. Troponins and EKG were negative time three. Echocardiogram demonstrated an EF of 60-65% with no wall motion abnormalities. Follow up: - Follow up with podiatry / infectious disease for planning of bone biopsy/ surgical debridement - Continue antibiotics for cellulitis - Diurese as tolerated, CXR demonstrated pulmonary edema Assessment/Plan: As above
--- NOTE | 2016-07-19 10:50 | PN- Infect Dx ---
Subjective Subjective: Afebrile. She notes persistent discomfort in the right leg. She has no shortness of breath. Objective Last 24 Hrs of Vital Signs/I&O Vital Signs Date Time Temp Pulse Resp B/P Pulse O2 O2 Flow FiO2 Ox Delivery Rate 07/19 0808 98.5 76 20 146/72 99 Room Air 07/19 0800 94 Nasal 3.0L Cannula 07/19 0604 160/96 07/19 0001 97.4 78 20 120/70 95 Nasal 3.0L Cannula 07/19 0000 Nasal 3.0L Cannula 07/18 2101 140/82 07/18 1825 98.4 82 22 142/90 95 Nasal 3.0L Cannula 07/18 1600 96 Nasal 3.0L Cannula 07/18 1600 98.8 84 26 112/70 96 Nasal 3.0L Cannula 07/18 1457 97.8 93 24 115/64 07/18 1200 96 Nasal 3.0L Cannula Intake & Output 07/19 1600 07/19 0800 07/19 0000 Intake Total 100 100 Output Total 200 Balance -100 100 Intake, Oral 100 100 Output, Urine 200 Physical Exam Other Physical Findings: She appears comfortable in no acute distress Lungs are clear Heart regular rhythm with no murmur Extremities right leg erythema persists, mildly warm and tender to palpation, with minimal edema; right lateral malleolar ulcer clean, with no surrounding erythema Results Last 24 Hours of Lab Results: Laboratory Tests 07/19 0650 Chemistry Sodium (137 - 145 mmol/L) 140 Potassium (3.5 - 5.1 mmol/L) 3.6 Chloride (98 - 107 mmol/L) 99 Carbon Dioxide (22 - 30 mmol/L) 27 Anion Gap (5 - 16) 15 BUN (7 - 17 mg/dL) 24 H Creatinine (0.5 - 1.0 mg/dL) 0.6 Estimated GFR (>60 ml/min) > 60 BUN/Creatinine Ratio (7 - 25 %) 40.0 H Hematology CBC w Diff NO MAN DIFF REQ WBC (4.8 - 10.8 /CUMM) 9.8 RBC (4.20 - 5.40 /CUMM) 4.59 Hgb (12.0 - 16.0 G/DL) 13.6 Hct (37 - 47 %) 40.7 MCV (81.0 - 99.0 FL) 88.5 MCH (27.0 - 31.0 PG) 29.6 RDW (11.5 - 14.5 %) 13.0 Plt Count (130 - 400 /CUMM) 200 MPV (7.4 - 10.4 FL) 9.4 Gran % (42.2 - 75.2 %) 76.2 H Lymphocytes % (20.5 - 51.1 %) 12.7 L Monocytes % (1.7 - 9.3 %) 10.6 H Eosinophils % (0 - 5 %) 0.4 Basophils % (0.0 - 2.0 %) 0.1 Absolute Granulocytes (1.4 - 6.5 /CUMM) 7.4 H Absolute Lymphocytes (1.2 - 3.4 /CUMM) 1.2 Absolute Monocytes (0.10 - 0.60 /CUMM) 1.0 H Absolute Eosinophils (0.0 - 0.7 /CUMM) 0 Absolute Basophils (0.0 - 0.2 /CUMM) 0 PUBS MCHC (33.0 - 37.0 G/DL) 33.5 Last 24 Hours of Edwin Results: No recent cultures Recent Imaging Studies: Chest x-ray July 18, personally reviewed, reveals bilateral interstitial prominence Assessment/Plan Impression: Overall improved with temperatures and white blood cell count now normal on Cefazolin Day 5 of treatment for sepsis secondary to right leg cellulitis, though right leg inflammation persists. The MRI results are noted and are equivocal for osteomyelitis, but, based on her history, I still suspect osteomyelitis and feel that a bone biopsy should be done. As has been discussed this would be best done off antibiotics; therefore she can complete her course of antibiotics for her cellulitis and then plan the bone biopsy once she has been off antibiotics for at least 3 days. Suggestion: 1. Elevation of the right leg 2. Further management of fluid status per Cardiology 3. Eventual bone biopsy once she is off antibiotics per Podiatry 4. Continue Cefazolin
--- NOTE | 2016-07-19 11:39 | PN- Pulmonary ---
Subjective HPI/Critical Care Issues: Afebrile. She notes persistent discomfort in the right leg. She has no shortness of breath. Objective Current Medications: Current Medications Sig/Melisa Start time Last Medication Dose Route Stop Time Status Admin Acetaminophen 650 MG Q4P PRN 07/16 0945 AC 07/17 PO 1309 Aspirin 81 MG DAILY 07/15 1207 AC 07/19 PO 1020 Cefazolin Sodium 2 GM IQ8 07/16 0000 AC 07/19 N/A 1 UNIT IV 0746 Furosemide 20 MG ONCE ONE 07/18 1230 DC 07/18 IV 07/18 1231 1248 Furosemide 20 MG DAILY 07/18 1000 AC 07/19 PO 1020 Heparin Sodium 5,000 UNIT Q8 07/14 2200 AC 07/19 (Porcine) SC 0604 Levothyroxine Sodium 0.175 MG DAILY AC 07/16 0700 AC 07/19 PO 0604 Metoprolol Tartrate 25 MG Q8 07/16 1400 AC 07/19 PO 0604 Nystatin 1 IZZY BID PRN 07/15 0900 [facility] Vital Signs & I&O Last 24 Hrs of Vitals and I&O: Vital Signs Date Time Temp Pulse Resp B/P Pulse O2 O2 Flow FiO2 Ox Delivery Rate 07/19 0808 98.5 76 20 146/72 99 Room Air 07/19 0800 94 Nasal 3.0L Cannula 07/19 0604 160/96 07/19 0001 97.4 78 20 120/70 95 Nasal 3.0L Cannula 07/19 0000 Nasal 3.0L Cannula 07/18 2101 140/82 07/18 1825 98.4 82 22 142/90 95 Nasal 3.0L Cannula 07/18 1600 96 Nasal 3.0L Cannula 07/18 1600 98.8 84 26 112/70 96 Nasal 3.0L Cannula 07/18 1457 97.8 93 24 115/64 07/18 1200 96 Nasal 3.0L Cannula Intake & Output 07/19 1600 07/19 0800 07/19 0000 Intake Total 100 100 Output Total 200 Balance -100 100 Intake, Oral 100 100 Output, Urine 200 Laboratory Tests 07/19 07/18 0650 0500 Chemistry Sodium (137 - 145 mmol/L) 140 140 Potassium (3.5 - 5.1 mmol/L) 3.6 3.5 Chloride (98 - 107 mmol/L) 99 99 Carbon Dioxide (22 - 30 mmol/L) 27 27 Anion Gap (5 - 16) 15 14 BUN (7 - 17 mg/dL) 24 H 24 H Creatinine (0.5 - 1.0 mg/dL) 0.6 0.6 Estimated GFR (>60 ml/min) > 60 > 60 BUN/Creatinine Ratio (7 - 25 %) 40.0 H Glucose (65 - 99 mg/dL) 110 H Calcium (8.4 - 10.2 mg/dL) 8.8 Phosphorus (2.5 - 4.5 mg/dL) 2.4 L Magnesium (1.6 - 2.3 mg/dL) 2.1 Total Bilirubin (0.2 - 1.3 mg/dL) 0.7 AST (14 - 36 U/L) 144 H ALT (9 - 52 U/L) 87 H Albumin (3.5 - 5.0 g/dL) 3.1 L Hematology CBC w Diff NO MAN DIFF REQ MAN DIFF ORDERED WBC (4.8 - 10.8 /CUMM) 9.8 13.0 H RBC (4.20 - 5.40 /CUMM) 4.59 4.38 Hgb (12.0 - 16.0 G/DL) 13.6 13.0 Hct (37 - 47 %) 40.7 38.8 MCV (81.0 - 99.0 FL) 88.5 88.5 MCH (27.0 - 31.0 PG) 29.6 29.6 RDW (11.5 - 14.5 %) 13.0 13.1 Plt Count (130 - 400 /CUMM) 200 183 MPV (7.4 - 10.4 FL) 9.4 8.9 Gran % (42.2 - 75.2 %) 76.2 H 84.0 H Lymphocytes % (20.5 - 51.1 %) 12.7 L 8.5 L Monocytes % (1.7 - 9.3 %) 10.6 H 7.5 Eosinophils % (0 - 5 %) 0.4 0 Basophils % (0.0 - 2.0 %) 0.1 0 L Absolute Granulocytes (1.4 - 6.5 /CUMM) 7.4 H 10.9 H Absolute Lymphocytes (1.2 - 3.4 /CUMM) 1.2 1.1 L Absolute Monocytes (0.10 - 0.60 /CUMM) 1.0 H 1.0 H Absolute Eosinophils (0.0 - 0.7 /CUMM) 0 0 Absolute Basophils (0.0 - 0.2 /CUMM) 0 0 Platelet Estimate (ADEQUATE) ADEQUATE Normocytic RBCs VERIFIED Normochromic RBCs VERIFIED PUBS MCHC (33.0 - 37.0 G/DL) 33.5 33.4 Impression/Plan Impression/Plan Impression/Plan: Exam General Appearance: well developed/nourished, no apparent distress, alert, awake , comfortable, obese Other Physical Findings: General -developed, well nourished obese female in no acute distress HEENT - NCAT, PERRL, EOMI, anicteric sclera, nasal cannula in place Cardio - S1, S2 w/o murmurs/gallops/rubs Resp - CTA bilaterally w/o wheezing/rhochi/crackles GI - soft, nontender, nondistended, bowel sounds present Neuro - Awake and alert, CN II - XII grossly intact Extremities - no edema, pulses intact, grossly erythematous distal right lower extremity with dressed chronic open wound on the lateral aspect 65 year old woman * Resolved Acute hypoxemic respiratory failure, likely fluid overload improving * Sepsis likely secondary to osteomyelitis * Resolved altered mental status due to sepsis * Minimally elevated troponin probable demand ischemia * Peripheral PVD * Improving LFTs * Chronic lower extremity nonhealing wound * Improved sinus tachycardia RECOMMENDATION Continue present care Continue diuretics, Antibiotics per infectious disease Slowly wean down oxygen 20 mg of Lasix IV, 1 today 40 mEq of potassium 2 doses today We will transferred to hospitalist service
[2016-07-19 16:55] VITALS: BP 128/72
[2016-07-19 21:30] VITALS: BP 128/72
[2016-07-19 23:50] VITALS: BP 128/70
--- NOTE | 2016-07-20 06:27 | PN- Housestaff ---
NIKO CHASE,NIGEL 07/20/16 0627: Subjective Follow-up For: Cellulitis Subjective: Patient seen and examined at bedside. She reports feeling well with no new compalaints. Resting comfortably in bed in no acute distress. Reports much improvement in the tenderness in the RLE. Denies any fever, chills, headache, fever, chills, chest pain, palpitations, increased shortness of breath, nausea, vomiting, diarrhea. Review of Systems Constitutional: Reports: see HPI. Objective Last 24 Hrs of Vital Signs/I&O Vital Signs Date Time Temp Pulse Resp B/P Pulse O2 O2 Flow FiO2 Ox Delivery Rate 07/20 0604 120/67 07/20 0000 Nasal 2.0L Cannula 07/19 2350 98.2 80 20 128/70 93 CPAP 07/19 2130 98.0 88 20 128/72 92 07/19 2119 85 130/78 07/19 1655 98.3 81 20 128/72 93 07/19 1549 94 Nasal 2.0L Cannula 07/19 1358 78 136/72 Intake & Output 07/20 1600 07/20 0800 07/20 0000 Intake Total 200 720 Output Total 300 Balance 200 420 Intake, IV 80 Intake, Oral 120 720 Output, Urine 300 Physical Exam General Appearance: Alert, Oriented X3, Cooperative, No Acute Distress Other Physical Findings: HEENT: NCAT, PERRL, EOMI, anicteric sclera, nasal cannula Cardio: S1, S2 w/o murmurs/gallops/rubs Resp: rhonchi heard in bibasilar lung talbert, no crackles/wheezing GI: soft, nontender, nondistended, bowel sounds present Neuro: Awake and alert, CN II - XII grossly intact Extremities: 2+ edema in bilateral lower extremities, distal pulses intact Current Medications: Current Medications Sig/Melisa Start time Last Medication Dose Route Stop Time Status Admin Acetaminophen 650 MG Q4P PRN 07/16 0945 AC 07/17 PO 1309 Aspirin 81 MG DAILY 07/15 1207 AC 07/19 PO 1020 Cefazolin Sodium 2 GM IQ8 07/16 0000 AC 07/19 N/A 1 UNIT IV 2323 Furosemide 20 MG ONCE ONE 07/19 1215 DC 07/19 IV 07/19 1216 1359 Furosemide 20 MG DAILY 07/18 1000 AC 07/19 PO 1020 Heparin Sodium 5,000 UNIT Q8 07/14 2200 AC 07/20 (Porcine) SC 0603 Levothyroxine Sodium 0.175 MG DAILY AC 07/16 0700 AC 07/20 PO 0603 Metoprolol Tartrate 25 MG Q8 07/16 1400 AC 07/20 PO 0604 Nystatin 1 IZZY BID PRN 07/15 0900 AC TOP Potassium Chloride 40 MEQ BID 07/19 1212 DC 07/19 PO 07/20 0000 2119 Last 24 Hrs of Lab/Edwin Results Last 24 Hrs of Labs/Mics: Laboratory Tests 07/20/16 0700: Sodium Pending, Potassium Pending, Chloride Pending, Carbon Dioxide Pending, Anion Gap Pending, BUN Pending, Creatinine Pending, BUN/Creatinine Ratio Pending Assessment/Plan Assessment: 65 year old woman with PMH significant for 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 # Cellulitis and possible osteomyelitis of RLE Patient carries a history of PVD with stenting, right ankle bimalleolar fracture with infected hardware, and chronic lower extremity non healing wounds. She presented with a bilateral lower extremity edema with an open erythematous wound tender to palpation without warm/drainage on her right lateral malleolus. Xray of the leg was suspicious for distal fibula osteomyelitis. Records were obtained from the office of Dr. Clay and it was determined patient had MRI compatible stents. MRI was inconclusive for osteomyelitis, however. ID and Podiatry consultants determined that patient should finish her course of antibiotics for cellulitis before persuing a bone biopsy to assess for osteomyelitis as it would be more specific to obtain the tissue sample through uninfected skin. * Wound care/ID/Podiatry following, appreciate recs * Discontinue cefazolin (07/15-) 2mg IV Q8 - day 6 * Start Keflex (07/20-) 2mg PO Q6 as per ID * Cont Lasix 20mg PO daily * May give an additional dose of Lasix 20mg IV if needed # Severe sepsis most likely 2/2 cellulitis - Resolved Upon admission patient was febrile to 105.7 with leukcotyosis at 23.7, tachycardia up to 124, tachypnea up to 40, and hypotension as low as 90/54. consistent with severe sepsis. She was given intravenous fluid resusitation and started on antibiotics for right lower extremity cellulitis. Sepsis and respiratory distress rapidly improved with supplemental oxygen via bipap and 6.0L normal saline fluid resuscitation. Blood culture from 07/14 was positive for staph coag negative in one bottle only. All the blood and wound cultures were negative since then. * Follow above-mentioned plans for cellulitis * Vitals per protocol * CBC daily to trend WBC # Acute hypoxic respiratory failure - Resolved Most likely 2/2 sepsis. Patient also carries a h/o SARI. Patient was placed on BiPAP upon arrival to ED. Oxygen saturation range 86-93% on 100% FiO2 via nonrebreather. She was in moderate respiratory distress with wheezing on lung exam. ABG showed pH 7.44 / CO2 29 / O2 92 / HCO3 19. CXR was negative for acute cardiopulmonary disease. Patient was weaned off BiPAP in ICU and has been satting well on regular oxygen supplement since then. - Echo (07/15): Normal left and right ventricular systolic function. No significant valvular abnormalities noted. - CXR (07/18): Bilateral regions of interstitial and airspace disease consistent with pulmonary edema of cardiogenic or noncardiogenic etiology. Region of more confluent disease may be related to pneumonitis. * Vitals per shift * Maintain O2 sat above 92% * Oxygen support as needed, currently not requiring any oxygen * Cont diuresis as per above-mentioned plan # Transaminitis Most likely 2/2 shock liver in the setting of severe sepsis. LFTs trending down. * Cont to trend LFTs # Hypokalemia * Check BEP daily, trend K * Replete adequately - Regular diet - Mild pain pathway - DVTppx with SQ heparin - Full code Problem List: 1. Cellulitis 2. Sepsis 3. Hypoxia Pain Ratin Pain Location: RLE Pain Goal: Remain pain free Pain Plan: Mild pathway Tomorrow's Labs & Rationales: CBC to monitor for infection Consulting Request: Consulting Specialty: Thoracic/Vascular Surgery VASYL CID 07/20/16 1609: Attending MD Review Statement Attending Statement Attending MD Statement: examined this patient, discuss w/resident/PA/CAN BANDER OPERATOR, agreed w/resident/PA/CAN BANDER OPERATOR, reviewed EMR data (avail), discussed with case mgmt Attending Assessment/Plan: pt seen and examined at bedside. His cellulitis has improved and pt is afebrile. Changed to po keflex as per ID recommendations. Will need bone biopsy of the malleolar bone on rt leg once off abx to r/o osteomyelitis.
--- NOTE | 2016-07-20 07:59 | PN- Wound Care ---
Subjective Subjective: Patient appears markedly improved comfortable on room air. Right leg erythema persists but areas of epidermal lysis appear to be epithelialized. Right lower extremity ankle wound is unchanged. Objective Vital Signs and I&Os Vital Signs Result Date Time B/P 120/67 07/20 0604 O2 Delivery Nasal Cannula 07/20 O2 Flow Rate 2.0L 07/20 Pulse Ox 93 07/19 235 Temp 98.2 07/19 2349 Pulse 80 07/19 2350 Resp 20 07/19 2350 Intake & Output 07/20 0000 07/19 1600 07/19 0800 Intake Total 720 850 100 Output Total 300 600 200 Balance 420 250 -100 Intake, IV 50 Intake, Oral 720 800 100 Number 1 Bowel Movements Output, Urine 300 600 200 Exam the right leg shows there to be persistent but somewhat fading erythema areas of epidermal lysis are epithelializing right ankle wound is unchanged. Decision for fibular biopsy has been delayed until antibiotics have been completed. Impression/Plan Impression/Plan Impression/Plan: 65-year-old woman with chronic nonhealing right lateral malleolar ulcer thought primarily due to venous hypertension and venous insufficiency is admitted with acute cellulitis complicated by septic shock and secondary congestive heart failure. Continue leg elevation and use of nonadherent dressing. Decision regarding bone biopsy postponed until antibiotics have been completed. Patient would benefit from physical therapy evaluation
[2016-07-20 08:00] VITALS: BP 114/68
--- NOTE | 2016-07-20 12:03 | PN- Pulmonary ---
Subjective HPI/Critical Care Issues: Patient seen and examined this morning. She is saturating 93% on room air and hemodynamically stable without any fevers. No nausea no vomiting no diarrhea no constipation and no headaches. Objective Current Medications: Current Medications Sig/Melisa Start time Last Medication Dose Route Stop Time Status Admin Acetaminophen 650 MG Q4P PRN 07/16 0945 AC 07/17 PO 1309 Aspirin 81 MG DAILY 07/15 1207 AC 07/20 PO 0920 Cefazolin Sodium 2 GM IQ8 07/16 0000 AC 07/20 N/A 1 UNIT IV 1047 Furosemide 20 MG ONCE ONE 07/19 1215 DC 07/19 IV 07/19 1216 1359 Furosemide 20 MG DAILY 07/18 1000 AC 07/20 PO 1047 Heparin Sodium 5,000 UNIT Q8 07/14 2200 AC 07/20 (Porcine) SC 0603 Levothyroxine Sodium 0.175 MG DAILY AC 07/16 0700 AC 07/20 PO 0603 Metoprolol Tartrate 25 MG Q8 07/16 1400 AC 07/20 PO 0604 Nystatin 1 IZZY BID PRN 07/15 0900 AC TOP Potassium Chloride 40 MEQ BID 07/19 1212 DC 07/19 PO 07/20 0000 2119 Vital Signs & I&O Last 24 Hrs of Vitals and I&O: Vital Signs Date Time Temp Pulse Resp B/P Pulse O2 O2 Flow FiO2 Ox Delivery Rate 07/20 08 97.8 88 20 114/68 93 Room Air 07/20 0604 120/67 07/20 0000 Nasal 2.0L Cannula 07/19 2350 98.2 80 20 128/70 93 CPAP 07/19 2130 98.0 88 20 128/72 92 07/19 2119 85 130/78 07/19 1655 98.3 81 20 128/72 93 07/19 1549 94 Nasal 2.0L Cannula 07/19 1358 78 136/72 Intake & Output 07/20 1600 07/20 0800 07/20 0000 Intake Total 200 720 Output Total 300 Balance 200 420 Intake, IV 80 Intake, Oral 120 720 Output, Urine 300 Exam Other Physical Findings: gen awake heent NCAT room air cvs s1, s2 lungs transmitted, reduced bs bilaterally, rare rhonchi abd obese ext dressing intact Results Last 24 Hrs of Lab Results: Laboratory Tests 07/20/16 0700: Anion Gap 11, Estimated GFR > 60, BUN/Creatinine Ratio 35.0 H Impression/Plan Impression/Plan Impression/Plan: Impression 65 year old woman * Acute hypoxemic respiratory failure, likely fluid overload * sepsis likely secondary to osteomyelitis Plan - room air - ID consultation appreciated, f/u recs - call if needed - will need imaging upon dc
--- NOTE | 2016-07-20 13:51 | PN- Infect Dx ---
Subjective Subjective: Afebrile. She feels improved with decreased pain in the right leg. Objective Last 24 Hrs of Vital Signs/I&O Vital Signs Date Time Temp Pulse Resp B/P Pulse O2 O2 Flow FiO2 Ox Delivery Rate 07/20 08 97.8 88 20 114/68 93 Room Air 07/20 0604 120/67 07/20 0000 Nasal 2.0L Cannula 07/19 2350 98.2 80 20 128/70 93 CPAP 07/19 2130 98.0 88 20 128/72 92 07/19 2119 85 130/78 07/19 1655 98.3 81 20 128/72 93 07/19 1549 94 Nasal 2.0L Cannula 07/19 1358 78 136/72 Intake & Output 07/20 1600 07/20 0800 07/20 0000 Intake Total 200 720 Output Total 300 Balance 200 420 Intake, IV 80 Intake, Oral 120 720 Output, Urine 300 Physical Exam Other Physical Findings: She appears comfortable in no acute distress Lungs are clear Heart regular rhythm with no murmur Extremities right leg erythema persists, though with decreased tenderness and with some desquamation Results Last 24 Hours of Lab Results: Laboratory Tests 07/20 0700 Chemistry Sodium (137 - 145 mmol/L) 140 Potassium (3.5 - 5.1 mmol/L) 4.2 Chloride (98 - 107 mmol/L) 104 Carbon Dioxide (22 - 30 mmol/L) 26 Anion Gap (5 - 16) 11 BUN (7 - 17 mg/dL) 21 H Creatinine (0.5 - 1.0 mg/dL) 0.6 Estimated GFR (>60 ml/min) > 60 BUN/Creatinine Ratio (7 - 25 %) 35.0 H Last 24 Hours of Edwin Results: No recent cultures Assessment/Plan Impression: Overall improved with temperatures and white blood cell count normal on Cefazolin Day 6 of treatment for sepsis secondary to right leg cellulitis, with decreased pain and tenderness of the right leg. Though the MRI results are equivocal for osteomyelitis, her clinical picture is suggestive of it; therefore I feel that a bone biopsy should be done. As has been discussed this would be best done off antibiotics; therefore she can complete her course of antibiotics for her cellulitis and then plan the bone biopsy once she has been off antibiotics for at least 3 days. Suggestion: 1. Continue elevation of the right leg 2. Eventual bone biopsy once she is off antibiotics per Podiatry 3. Discontinue Cefazolin 4. Begin Keflex 500 mg po every 6 hours
[2016-07-20 16:04] VITALS: BP 118/78
--- NOTE | 2016-07-20 16:18 | PN- Cardiology ---
Subjective Subjective: Feels well. No chest pain, dyspnea, or palpitations. Objective Vital Signs and I&Os Vital Signs Date Time Temp Pulse Resp B/P Pulse O2 O2 Flow FiO2 Ox Delivery Rate 07/20 1456 120/78 07/20 0800 97.8 88 20 114/68 93 Room Air 07/20 0604 120/67 07/20 0000 Nasal 2.0L Cannula 07/19 2350 98.2 80 20 128/70 93 CPAP 07/19 2130 98.0 88 20 128/72 92 07/19 2119 85 130/78 07/19 1655 98.3 81 20 128/72 93 Intake & Output 07/20 1600 07/20 0800 07/20 0000 07/19 1600 07/19 0800 07/19 0000 Intake Total 1000 200 720 850 100 100 Output Total 300 600 200 Balance 1000 200 420 250 -100 100 Intake, IV 80 50 Intake, Oral 1000 120 720 800 100 100 Number 1 1 Bowel Movements Output, Urine 300 600 200 Physical Exam: General: no apparent distress. Eyes: No obvious scleral icterus. HEENT: No jugular venous distention or abnormal jugular venous pulsations. Cardiovascular: Normal intensity S1/S2. Regular. Respiratory: No rales or rhonchi Abdomen: no guarding or rebound tenderness. Musculoskeletal: No cyanosis noted, right lower extremity bandage noted with trace edema Skin: Right lower extremity erythema noted Current Medications: Current Medications Sig/Melisa Start time Last Medication Dose Route Stop Time Status Admin Acetaminophen 650 MG Q4P PRN 07/16 0945 AC 07/17 PO 1309 Aspirin 81 MG DAILY 07/15 1207 AC 07/20 PO 0920 Cefazolin Sodium 2 GM IQ8 07/16 0000 DC 07/20 N/A 1 UNIT IV 1047 Cephalexin 500 MG Q6 07/20 1439 AC PO Furosemide 20 MG DAILY 07/18 1000 AC 07/20 PO 1047 Heparin Sodium 5,000 UNIT Q8 07/14 2200 AC 07/20 (Porcine) SC 1456 Levothyroxine Sodium 0.175 MG DAILY AC 07/16 0700 AC 07/20 PO 0603 Metoprolol Tartrate 25 MG Q8 07/16 1400 AC 07/20 PO 1456 Nystatin 1 IZZY BID PRN 07/15 0900 AC TOP Potassium Chloride 40 MEQ BID 07/19 1212 DC 07/19 PO 07/20 0000 2119 Results Last 48 Hrs of Labs/Mics: Laboratory Tests 07/20/16 0700: Anion Gap 11, Estimated GFR > 60, BUN/Creatinine Ratio 35.0 H 07/19/16 0650: Anion Gap 15, Estimated GFR > 60, BUN/Creatinine Ratio 40.0 H, CBC w Diff NO MAN DIFF REQ, RBC 4.59, MCV 88.5, MCH 29.6, RDW 13.0, MPV 9.4, Gran % 76.2 H, Lymphocytes % 12.7 L, Monocytes % 10.6 H, Eosinophils % 0.4, Basophils % 0.1, Absolute Granulocytes 7.4 H, Absolute Lymphocytes 1.2, Absolute Monocytes 1.0 H, Absolute Eosinophils 0, Absolute Basophils 0, PUBS MCHC 33.5 Recent Imaging Studies: Not on tele Assessment/Plan Assessment/Plan 1. Altered mental status likely due to sepsis/osteomyelitis, improved 2. Respiratory insufficiency with volume overload requiring BiPAP, improving 3. History of sleep apnea 4. Minimal troponin elevation consistent with demand ischemia 5. Reported the PVD/venous insufficiency 6. Abnormal LFTs 7. Chronic lower extremity nonhealing wound 8. Sinus tachycardia, improved 9. hx HLD Patient is resting comfortably and denies dyspnea. Echocardiogram is grossly normal and doubts congestive heart failure although there was some concern for some noncardiogenic pulmonary volume overload which seems to have improved. Switched to PO Abx. Can change the Metoprolol to 25 mg PO BID. Would continue Lasix at 20 mg PO daily. Resume statin when LFTs have normalized. Will sign off. Can follow-up in our office within 1-2 weeks of discharge. Preet Serrato MD [facility] Continue telemetry? Not applicable
[2016-07-20 23:07] VITALS: BP 140/94
--- NOTE | 2016-07-21 06:35 | PN- Housestaff ---
See Addendum Subjective Follow-up For: Cellulitis Subjective: Patient seen and examined at bedside. Patient reports further improvement in her wound, espeically with regard to pain. She is resting comfortably in bed in no acute distress. Eating and feeling well with no new complaints. Feels ready for discharge to [facility]. Denies any fever, chills, headache, fever, chills, chest pain, palpitations, increased shortness of breath, nausea, vomiting, diarrhea. Review of Systems Constitutional: Reports: see HPI. Objective Last 24 Hrs of Vital Signs/I&O Vital Signs Date Time Temp Pulse Resp B/P Pulse O2 O2 Flow FiO2 Ox Delivery Rate 07/21 0946 Nasal 2.0L Cannula 07/21 0915 115/70 07/21 0843 97.2 88 20 115/70 92 Room Air 07/21 0618 91 155/74 07/21 0000 CPAP 07/20 2346 97.6 07/20 2307 90 20 140/94 92 Room Air 07/20 2201 90 140/94 07/20 1604 97.1 86 20 118/78 93 Room Air 07/20 1456 120/78 Intake & Output 07/21 1600 07/21 0800 07/21 0000 Intake Total Output Total Balance Number 1 Bowel Movements Physical Exam General Appearance: Alert, Oriented X3, Cooperative, No Acute Distress Other Physical Findings: Skin Stable appearing ulcer overlying the lateral aspect of the right ankle without any probing, undermining, fluctuance, crepitus and active drainage. There is cellulitis noted about the periphery of the leg extending proximally to the region just inferior to the knee. Size is stable but intensity of erythema is improving. HEENT: NCAT, PERRL, EOMI, anicteric sclera, nasal cannula Cardio: S1, S2 w/o murmurs/gallops/rubs Resp: rhonchi heard in bibasilar lung talbert, no crackles/wheezing GI: soft, nontender, nondistended, bowel sounds present Neuro: Awake and alert, CN II - XII grossly intact Extremities: 2+ edema in bilateral lower extremities, distal pulses intact Current Medications: Current Medications Sig/Melisa Start time Last Medication Dose Route Stop Time Status Admin Acetaminophen 650 MG Q4P PRN 07/16 0945 AC 07/17 PO 1309 Aspirin 81 MG DAILY 07/15 1207 AC 07/21 PO 0915 Cefazolin Sodium 2 GM IQ8 07/16 0000 DC 07/20 N/A 1 UNIT IV 1047 Cephalexin 500 MG Q6 07/20 1439 AC 07/21 PO 1124 Furosemide 20 MG DAILY 07/18 1000 AC 07/21 PO 0915 Heparin Sodium 5,000 UNIT Q8 07/14 2200 AC 07/21 (Porcine) SC 0628 Levothyroxine Sodium 0.175 MG DAILY AC 07/16 0700 AC 07/21 PO 0611 Metoprolol Tartrate 25 MG Q12 07/21 1000 AC 07/21 PO 0915 Metoprolol Tartrate 25 MG Q8 07/16 1400 DC 07/21 PO 0618 Nystatin 1 IZZY BID PRN 07/15 0900 AC TOP Patient Medication 1 UNIT ONE NR 07/21 0845 AC Teaching ED 07/21 1445 Pravastatin Sodium 40 MG 07/21 AC PO Senna/Docusate Sodium 1 TAB BID PRN 07/21 0845 CAN PO Assessment/Plan Assessment: 65 year old woman with PMH significant for 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 # Cellulitis and possible osteomyelitis of RLE Patient carries a history of PVD with stenting, right ankle bimalleolar fracture with infected hardware, and chronic lower extremity non healing wounds. She presented with a bilateral lower extremity edema with an open erythematous wound tender to palpation without warm/drainage on her right lateral malleolus. Xray of the leg was suspicious for distal fibula osteomyelitis. Records were obtained from the office of Dr. Clay and it was determined patient had MRI compatible stents. MRI was inconclusive for osteomyelitis, however. ID and Podiatry consultants determined that patient should finish her course of antibiotics for cellulitis before persuing a bone biopsy to assess for osteomyelitis as it would be more specific to obtain the tissue sample through uninfected skin. * Wound care/ID/Podiatry following, appreciate recs * Discontinue cefazolin (07/15-) 2mg IV Q8 - day 6 * Continue Keflex (07/20-) 2mg PO Q6 - day 2 (total of 7-10 day course to be completed as per ID) * Cont Lasix 20mg PO daily * May give an additional dose of Lasix 20mg IV if needed # Severe sepsis most likely 2/2 cellulitis - Resolved Upon admission patient was febrile to 105.7 with leukcotyosis at 23.7, tachycardia up to 124, tachypnea up to 40, and hypotension as low as 90/54. consistent with severe sepsis. She was given intravenous fluid resusitation and started on antibiotics for right lower extremity cellulitis. Sepsis and respiratory distress rapidly improved with supplemental oxygen via bipap and 6.0L normal saline fluid resuscitation. Blood culture from 07/14 was positive for staph coag negative in one bottle only. All the blood and wound cultures were negative since then. * Follow above-mentioned plans for cellulitis * Vitals per protocol * CBC daily to trend WBC # Acute hypoxic respiratory failure - Resolved Most likely 2/2 sepsis. Patient also carries a h/o SARI. Patient was placed on BiPAP upon arrival to ED. Oxygen saturation range 86-93% on 100% FiO2 via nonrebreather. She was in moderate respiratory distress with wheezing on lung exam. ABG showed pH 7.44 / CO2 29 / O2 92 / HCO3 19. CXR was negative for acute cardiopulmonary disease. Patient was weaned off BiPAP in ICU and has been satting well on regular oxygen supplement since then. - Echo (07/15): Normal left and right ventricular systolic function. No significant valvular abnormalities noted. - CXR (07/18): Bilateral regions of interstitial and airspace disease consistent with pulmonary edema of cardiogenic or noncardiogenic etiology. Region of more confluent disease may be related to pneumonitis. * Vitals per shift * Maintain O2 sat above 92% * Oxygen support as needed, currently not requiring any oxygen * Cont diuresis as per above-mentioned plan # Transaminitis Most likely 2/2 shock liver in the setting of severe sepsis. LFTs trending down. * Cont to trend LFTs # Hypokalemia - resolved * Check BEP q2D * Replete adequately - Regular diet - Mild pain pathway - DVTppx with SQ heparin - Full code Problem List: 1. Cellulitis 2. Sepsis 3. Hypoxia Pain Ratin Pain Location: RLE Pain Goal: Remain pain free Pain Plan: Mild pathway Tomorrow's Labs & Rationales: None Consulting Request: Consulting Specialty: Thoracic/Vascular Surgery
[2016-07-21 08:43] VITALS: BP 115/70
[2016-07-21 09:15] VITALS: BP 115/70
[2016-07-21] MEDS ORDERED: CEPHALEXIN500 M3 PO (10:38)
[2016-07-21] MEDS ORDERED: METOPROLOL TART25 M1 PO (10:38)
[2016-07-21] MEDS ORDERED: ASPIRIN81 M4 PO (10:41)
[2016-07-21] MEDS ORDERED: FUROSEMIDE20 M1 PO (10:41)
--- NOTE | 2016-07-21 11:00 | Patient Discharge Instructions ---
Discharge Instructions General Discharge Information You were seen/treated for: Sepsis due to cellulitis Special Instructions: 1. Please follow up with Dr. Clay, Dr. Ball, Dr. Potter, Dr. Hoskins ( neuro intensivist physician), and Dr. Sanchez (lung doctor) within a week of discharge. 2. Have the CXR taken next week before following up with Dr. Sanchez. Acute Coronary Syndrome Inclusion Criteria At DC or during hospital stay patient has or had the following: ACS DIAGNOSIS No Discharge Core Measures Meds if any: Prescribed or Continued at Discharge Meds if any: NOT Prescribed or Continued at Discharge Congestive Heart Failure Inclusion Criteria At DC or during hospital stay patient has or had the following: CHF DIAGNOSIS No Discharge Core Measures Meds if any: Prescribed or Continued at Discharge Meds if any: NOT Prescribed or Continued at Discharge Cerebrovascular accident Inclusion Criteria At DC or during hospital stay patient has or had the following: CVA/TIA Diagnosis No Discharge Core Measures Meds if any: Prescribed or Continued at Discharge Meds if any: NOT Prescribed or Continued at Discharge Venous thromboembolism Inclusion Criteria VTE Diagnosis No VTE Type NONE VTE Confirmed by (Test) NONE Discharge Core Measures - Per Current guidelines, there needs to be overlap - treatment for the first 5 days of Warfarin therapy. - If discharged on Warfarin prior to 5 days of - overlap therapy, the patient will need to be - assessed for post discharge needs including - *Post discharge parental anticoagulation - *Warfarin and/or parental anticoagulation education - *Follow up date to check INR post discharge At least 5 days overlap therapy as Inpatient No Meds if any: Prescribed or Continued at Discharge Note: Overlap Therapy is Warfarin and Anticoagulant Meds if any: NOT Prescribed or Continued at Discharge
--- NOTE | 2016-07-21 13:05 | PN- Infect Dx ---
Subjective Subjective: Afebrile. She notes some discomfort in the inner aspect of her right ankle with walking. Objective Last 24 Hrs of Vital Signs/I&O Vital Signs Date Time Temp Pulse Resp B/P Pulse O2 O2 Flow FiO2 Ox Delivery Rate 07/21 0946 Nasal 2.0L Cannula 07/21 0915 115/70 07/21 0843 97.2 88 20 115/70 92 Room Air 07/21 0618 91 155/74 07/21 0000 CPAP 07/20 2346 97.6 07/20 2307 90 20 140/94 92 Room Air 07/20 2201 90 140/94 07/20 1604 97.1 86 20 118/78 93 Room Air 07/20 1456 120/78 Intake & Output 07/21 1600 07/21 0800 07/21 0000 Intake Total Output Total Balance Number 1 Bowel Movements Physical Exam Other Physical Findings: She appears comfortable in no acute distress Extremities decreased erythema of the right leg, with desquamation Results Last 24 Hours of Lab Results: No labs from today Last 24 Hours of Edwin Results: No recent cultures Assessment/Plan Impression: Overall improved with temperatures and white blood cell count normal now on Keflex Day 7 of treatment for sepsis secondary to right leg cellulitis, with decreased pain and tenderness of the right leg. I'm still concerned about the possibility of underlying osteomyelitis of the right fibula, and she is scheduled for a bone biopsy as an outpatient after she completes her course of antibiotics. Suggestion: 1. Continue Keflex to complete a 10-14 day course of treatment 2. Eventual bone biopsy once she is off antibiotics per Podiatry
--- NOTE | 2016-07-21 14:43 | Discharge Summary ---
Visit Information Visit Dates Admission Date: 07/14/16 Discharge Date: 07/21/16 Hospital Course Course Attending Physician: VASYL CID MD Primary Care Physician: MUNIRA MONTANO MD Consulting Request: Consulting Specialty: Thoracic/Vascular Surgery Hospital Course: 66 year old woman with PMH significant for SARI on CPAP, Chronic lower extremity wounds, Right ankle bimalleolar fracture s/p ORIF, OM, PVD s/p stent, Phillips's Palsy, HLD, hypothyroidism, anxiety, who presented with altered mental status and severe sepsis secondary to Rt LE cellulitis. Problem List # Cellulitis and possible osteomyelitis of RLE Patient carries a history of PVD with stenting, right ankle bimalleolar fracture complicated by infected hardware, and chronic Rt lower extremity non healing wound. She presented with a bilateral lower extremity edema with an open erythematous wound tender to palpation without warm/drainage on her right lateral malleolus. Xray of the leg was suspicious for distal fibula osteomyelitis. Records were obtained from the office of Dr. Clay and it was determined patient had MRI compatible stents. MRI was inconclusive for osteomyelitis, however. ID and Podiatry consultants determined that patient should finish her course of antibiotics for cellulitis before persuing a bone biopsy to assess for osteomyelitis as it would be more specific to obtain the tissue sample through uninfected skin. Plan is to continue Wound care/ID/ Podiatry follow up. Patient was on IV cefazolik and will be completing a 10 day course of PO Keflex. Continue Lasix 20mg PO daily for LE swelling. She will need to return for a bone biopsy after completion of her antibiotic course. # Severe sepsis likely secondary to LE cellulitis - Resolved Upon admission patient was febrile to 105.7 with leukcotyosis at 23.7, tachycardia up to 124, tachypnea up to 40, and hypotension as low as 90/54. consistent with severe sepsis. She was given intravenous fluid resusitation and started on antibiotics for right lower extremity cellulitis. Sepsis and respiratory distress rapidly improved with supplemental oxygen via bipap and 6.0L normal saline fluid resuscitation. Blood culture from 07/14 was positive for staph coag negative in one bottle only and was thought to be a contaminant. All the blood and wound cultures were negative since then. Vitals and labs are now stable. # Acute hypoxic respiratory failure - Resolved Most likely secondary to sepsis vs hypercapnia. Patient also carries a h/o SARI and had missed the use of her CPAP the night prior to admission. She was Patient was placed on BiPAP upon arrival to ED. Oxygen saturation range 86-93% on 100% FiO2 via nonrebreather. She was in moderate respiratory distress with wheezing on lung exam. ABG showed pH 7.44 / CO2 29 / O2 92 / HCO3 19. CXR was negative for acute cardiopulmonary disease. Patient was weaned off BiPAP in ICU and has been saturating well on room air. Continue CPAP use at home. She will need a repeat CXR in 1 week to evaluate for resolution of symptoms. - Echo (07/15): Normal left and right ventricular systolic function. No significant valvular abnormalities noted. - CXR (07/18): Bilateral regions of interstitial and airspace disease consistent with pulmonary edema of cardiogenic or noncardiogenic etiology. Region of more confluent disease may be related to pneumonitis. # Transaminitis Most likely 2/2 shock liver in the setting of severe sepsisand hypotension. LFTs trending down. repeat LFT as out patient to ensure normalization. # Mild Hypokalemia Repleted adequately with potassium supplements. Allergies: Coded Allergies: NO KNOWN ALLERGIES (07/29/12) Significant Procedures: none Pertinent Lab Results: Laboratory Tests 07/20/16 0700: Anion Gap 11, Estimated GFR > 60, BUN/Creatinine Ratio 35.0 H, Total Bilirubin 0.7, Direct Bilirubin 0.5 H, AST 94 H, ALT 94 H, Alkaline Phosphatase 141 H, Total Protein 6.5, Albumin 3.2 L 07/19/16 0650: Anion Gap 15, Estimated GFR > 60, BUN/Creatinine Ratio 40.0 H, CBC w Diff NO MAN DIFF REQ, RBC 4.59, MCV 88.5, MCH 29.6, RDW 13.0, MPV 9.4, Gran % 76.2 H, Lymphocytes % 12.7 L, Monocytes % 10.6 H, Eosinophils % 0.4, Basophils % 0.1, Absolute Granulocytes 7.4 H, Absolute Lymphocytes 1.2, Absolute Monocytes 1.0 H, Absolute Eosinophils 0, Absolute Basophils 0, PUBS MCHC 33.5 Disposition Summary Disposition Principal Diagnosis: Cellulitis and possible osteomyelitis of RLE, Severe sepsis most likely 2/2 cellulitis Additional Diagnosis: Acute hypoxic respiratory failure, Transaminitis, Mild Hypokalemia Discharge Disposition: STR Discharge Instructions General Discharge Information Code Status: Full Code Patient's Diet: Heart healthy Patient's Activity: As tolerated Follow-Up Instructions/Appts: 1. Please follow up with Dr. Clay, Dr. Ball, Dr. Potter, Dr. Hoskins ( liquor clerk), and Dr. Sanchez (lung doctor) within a week of discharge. 2. Have the CXR taken next week before following up with Dr. Sanchez. Medications at Discharge Discharge Medications: Continue taking these medications: Alprazolam (Alprazolam) 1 MG TABLET 1 Tablet ORAL TWICE DAILY Qty = 60 Comments: NOT GIVEN IN HOSPITAL Levothyroxine Sodium (Synthroid) 175 MCG TABLET 175 Microgram ORAL DAILY BEFORE BREAKFAST Qty = 30 Comments: Last Taken: 07/21/16 Time: 0600 AM Pravastatin Sodium (Pravastatin Sodium) 40 MG TABLET 1 Tablet ORAL DAILY Qty = 90 Comments: NOT GIVEN IN HOSPITAL Start taking the following new medications: Cephalexin (Cephalexin) 500 MG CAPSULE 500 Milligram ORAL EVERY SIX HOURS Days = 5 No Refills Instructions: Stop after last dose on 07/25. Comments: Last Taken: 07/21/16 Time: 1130 AM Metoprolol Tartrate (Metoprolol Tartrate) 25 MG TABLET 25 Milligram ORAL EVERY 12 HOURS Days = 30 No Refills Comments: Last Taken: 07/21/16 Time: 0830 AM Aspirin (Aspirin*) 81 MG TAB.CHEW 81 Milligram ORAL DAILY Days = 30 No Refills Comments: Last Taken: 07/21/16 Time: 0900 AM Furosemide (Furosemide) 20 MG TABLET 20 Milligram ORAL DAILY Days = 30 No Refills Comments: Last Taken: 07/21/16 Time: 0830 AM Copies To: CHARMAINE CHASE,MUNIRA Attending MD Review Statement Documenting Attending: VASYL CID MD Other Findings: Agree with the above discharge summary. Pt was seen by Dr Lobato on the day of discharge. Please refer to his note for more details.
== END 2016-07-21 16:18 | DRG 193 ==
LOC: ERH 16:44 → ENPENDDIS 19:00 → ERHI 19:00 → CRI 19:00 → 2NB 07-18 18:12
PROVIDERS: Emergency Medicine; Internal Medicine; Internal Medicine Infectious Disease; Internal Medicine Interventional Cardiology; ADMIT Student in an Organized Health Care Education/Training Program
DX: J18.9 Pneumonia, unspecified organism (principal); I21.4 Non-ST elevation (NSTEMI) myocardial infarction; I11.9 Hypertensive heart disease without heart failure; I24.8 Other forms of acute ischemic heart disease; I44.7 Left bundle-branch block, unspecified; I25.10 Atherosclerotic heart disease of native coronary artery without angina pectoris; Z95.5 Presence of coronary angioplasty implant and graft; E78.5 Hyperlipidemia, unspecified; E11.9 Type 2 diabetes mellitus without complications; Z79.84 Long term (current) use of oral hypoglycemic drugs
CPT/HCPCS: 2NBP; 75621; CCU; 36415; 73590-RT; 73610-RT; 74177; 80307; 81001; 82436; 87040; 87045; 87070; 87086; 87147; 87449; 87450; 87804; 87804-59; 93005; 93010; 93970; 96361; 96374; 96375; 97001-GP; 97110-GO; 97116-GO; 97530-GO; 99291; A9579; C8929; J0131; J0690; J0713; J1644; J1885; J1940; J3370; J3490; J7042; J7060; Q9957

== ENCOUNTER → 2016-08-11 | Day surgery (SDC) | payer OTHER ==
--- NOTE | 2016-08-09 16:04 | History & Physical Pre-Op ---
General Information and HPI History of Present Illness: Vero is a 66-year-old female with history of and long standing nonhealing ulcer to her right ankle. The patient has undergone an extended course of conservative care, including advance wound therapy and compression. The patient was admitted for a significant cellulitis associated with the ulcer requiring IV antibiotics. Imaging during this admission suggested a possible underlying osteomyelitis. Allergies/Medications Allergies: Coded Allergies: adhesive (Intermediate, RASH 08/07/16) latex (??? 08/07/16) Home Med list Alprazolam 1 MG TABLET 1 TAB PO BID ANXIETY (Reported) Aspirin (Aspirin*) 81 MG TAB.CHEW 81 MG PO DAILY HEART Cephalexin 500 MG CAPSULE 500 MG PO Q6 CELLULITIS Stop after last dose on 07/25. Furosemide 20 MG TABLET 20 MG PO DAILY EDEMA, HTN Levothyroxine Sodium (Synthroid) 175 MCG TABLET 175 MCG PO DAILY AC THYROID ( Reported) Metoprolol Tartrate 25 MG TABLET 25 MG PO Q12 BLOOD PRESSURE Pravastatin Sodium 40 MG TABLET 1 TAB PO DAILY CHOLESTEROL (Reported) Past History Medical History Neurological: FIELD'S PALSY EENT: NONE Cardiovascular: hyperlipidemia, PVD, STEMI (right iliac artery), HYPERTENSION Respiratory: obstructive sleep apnea Gastrointestinal: NONE Hepatic: NONE Renal: NONE Musculoskeletal: R ANKLE ORIF Psychiatric: NONE Endocrine: hypothyroidism Blood Disorders: NONE Cancer(s): NONE 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 Psychosocial History Who Do You Live With? spouse Services at Home None Functional Ability ADLs Independent: dressing, eating, toileting, bathing. Ambulation: independent IADLs Independent: shopping, housework, finances, food prep, telephone, transportation , medication admin. Review of Systems Review of Systems: Unremarkable except for that noted in history of present illness Exam & Diagnostic Data Physical Exam: Lungs clear bilaterally. Heart sounds rate and rhythm regular. Lower extremity physical exam demonstrates weakly palpable pulses bilaterally. There is secondary to significant and chronic edema. Patient is noted to have a 6 cm x 3 cm Leal grade 2 ulceration to the lateral aspect of her right ankle. There is slough overlying a mixed granular fibrotic wound bed. No probing or undermining identified. Moderate amount of serous drainage noted. Assessment/Plan Assessment/Plan: Nonhealing ulcer right ankle with possible underlying osteomyelitis. A lengthy discussion reviewing both surgical and conservative options was held the patient at bedside and the patient elects to go forward with surgery despite the risks. As Ranked By This Provider Problem List: 1. Other acute osteomyelitis, right ankle and foot Attending MD Review Statement Attending Statement Attending MD Statement: examined this patient
[~2016-08-11] VITALS: Ht 167.6 cm; Wt 104.3 kg
[~2016-08-11] MED LIST changes: +ALPRAZOLAM1 M2 PO; +ASPIRIN81 M4 PO; +CEPHALEXIN500 M3 PO; +FUROSEMIDE20 M1 PO; +METOPROLOL TART25 M1 PO; +PRAVASTATIN SOD40 M2 PO; +SYNTHROID175 MCG PO; +SYNTHROID200 MCG PO; +VIBRAMYCIN100 MG PO
--- NOTE | 2016-08-11 08:33 | Operative Report ---
Operative/Inv Procedure Report Surgery Date: 08/11/16 Name of Procedure: 1 open incision and drainage deep to the D fashion with exposure of the flexor tendon and tendon sheath multiple sites right ankle 2 biopsy right distal fibula 3 intraoperative administration of ankle block anesthesia 4 excisional debridement Pre-Operative Diagnosis: 1 necrotic nonhealing wound right ankle 2 osteomyelitis right ankle 3 chronic venous insufficiency Post-Operative Diagnosis: The same Estimated Blood Loss: scant Surgeon/Film Laboratory Technician: LAMAR PAZ DPM Anesthesia: moderate sedation, block Operative/Procedure Note Note: After pinning informed consent the patient was brought to the operating room and placed on the operating table in the supine position. The patient isn't securely fastened to the operating table utilizing safety belt. After administration of IV sedation, 10 mL of 0.5% Marcaine plain was infiltrated about the patient's right ankle. Right foot and ankle then scrubbed prepped and draped in usual aseptic manner. Digitorectal distal lateral right ankle. Where a 4 cm incision was made posterior to the chronic ulceration. The skin was deepened into subtenons tissues. The dissection was then carried down deep to the D fashion with exposure of the flexor tendon and tendon sheath multiple sites, both proximally and distally. All necrotic nonviable infected tissue sharply evacuated from the wound bed. An interval was then developed down to the periosteum overlying the distal posterior fibula. This incised reflected. A rongeur was utilized to harvest bone specimen. This was sent for both microbiologic and pathologic inspection. The wound was then irrigated with 3 L normal sterile saline. Following this, the foot was redraped and the surgeon's top gloves were changed clean gloves. Any bleeding vessels identified were cauterized or ligated as encountered. The deep tissues were reapproximated 4-0 Vicryl and the skin is reprepped for nylon. Incision just with Xeroform 4 x 4's Kerlix and Tello wrap. The patient was noted to tolerate both procedure and anesthesia well and the patient was transported from the operating room to recovery by sent stable best assess intact all digits right foot.
== END ==
LOC: STS 03:48
DX: L97.319 Non-pressure chronic ulcer of right ankle with unspecified severity (principal); I87.2 Venous insufficiency (chronic) (peripheral); M86.9 Osteomyelitis, unspecified; E78.5 Hyperlipidemia, unspecified; I10 Essential (primary) hypertension; E03.9 Hypothyroidism, unspecified
CPT/HCPCS: 87070; 87075; 87184; 87147; J2250

== ENCOUNTER 2016-10-03 10:13 | Emergency (ER) | payer OTHER ==
[~2016-10-03] VITALS: Ht 167.6 cm; Wt 103.4 kg
[~2016-10-03 10:13] MED LIST changes: -VIBRAMYCIN100 MG PO
[2016-10-03 11:08] LABS: ABSOLUTE BASOPHIL COUNT 0 /CUMM (0.0-0.2); ABSOLUTE EOSINOPHIL COUNT 0.1 /CUMM (0.0-0.7); ABSOLUTE GRANULOCYTE CT 6.3 /CUMM (1.4-6.5); ABSOLUTE LYMPH COUNT 1.4 /CUMM (1.2-3.4); ABSOLUTE MONOCYTE COUNT 0.8 /CUMM (0.10-0.60); BASOPHIL % 0.3 % (0.0-2.0); EOSINOPHIL % 1.2 % (0-5); GRANULOCYTE % 72.7 % (42.2-75.2); HEMATOCRIT 39.5 % (37-47); MEAN CORPUSCULAR HGB 29.3 PG (27.0-31.0); MEAN CORPUSCULAR HGB CONC 33.2 G/DL (33.0-37.0); MEAN CORPUSCULAR VOLUME 88.4 FL (81.0-99.0); MEAN PLATELET VOLUME 8.5 FL (7.4-10.4); PLATELET COUNT 262 /CUMM (130-400); RBC DISTRIBUTION WIDTH 13.1 % (11.5-14.5); RED BLOOD CELL CT 4.47 /CUMM (4.20-5.40); WHITE BLOOD CELL COUNT 8.7 /CUMM (4.8-10.8)
--- NOTE | 2016-10-03 11:13 | ED SKIN/ALLERGY COMPLAINT ---
History of Present Illness General Chief Complaint: Skin Rash/ Abcess Stated Complaint: ?CELLULITIS OF RT ANKLE Source: patient, old records Exam Limitations: no limitations Vital Signs & Intake/Output Vital Signs & Intake/Output Vital Signs Date Time Temp Pulse Resp B/P Pulse O2 O2 Flow FiO2 Ox Delivery Rate 10/03 1140 97.0 80 20 126/74 96 Room Air 10/03 1017 97.5 82 18 112/72 97 Room Air Room Air Allergies Coded Allergies: adhesive (Intermediate, RASH 08/07/16) latex (??? 08/07/16) Reconcile Medications Doxycycline Hyclate (Vibramycin) 100 MG CAPSULE 1 CAP PO BID cellulitis Furosemide 20 MG TABLET 20 MG PO DAILY EDEMA, HTN Levothyroxine Sodium (Synthroid) 175 MCG TABLET 175 MCG PO DAILY AC THYROID ( Reported) Metoprolol Tartrate 25 MG TABLET 25 MG PO Q12 BLOOD PRESSURE Pravastatin Sodium 40 MG TABLET 1 TAB PO DAILY CHOLESTEROL (Reported) Triage Note: TRIAGE: 66 Y/O MALE PRESENTS C/O 10 PAIN TO RIGHT ANKLE, ?CELLULITIS. RECENTLY DIAGNOSED WITH OSTEOMYELITIS IN JULY. REPORTS REDNESS AND SWELLING TO RIGHT ANKLE. * UNABLE TO VISUALIZE IN TRIAGE. * DIAGNOSED WITH CELLULITIS IN 2012, SWABBED POSITIVE AGAIN IN 2017. Triage Nurses Notes Reviewed? yes Onset: Last week Duration: day(s):, constant, continues in ED, getting worse Timing: recent history Severity: moderate Location: extremities Possible Factors: no cause identified No Modifying Factors: none Associated Symptoms: change in skin texture, edema, rash, swelling/mass/lumps LMP (ages 10-50): post menopausal : No Patient currently breastfeeds: No HPI: 10 days prior to admission her right ankle wound VAC started to leak so she was instructed to remove it. Prior to admission she noted the area below the wound VAC insertion was swollen and red tender to touch. She denies fever chills nausea vomiting diarrhea abdominal pain chest pain shortness breath headache dysuria bleeding. Past History Travel History Traveled to [place] past 21 day No Medical History Any Pertinent Medical History? 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 Hx Contributory? No Review of Systems Review of Systems Constitutional: Reports: no symptoms. EENTM: Reports: no symptoms. Respiratory: Reports: no symptoms. Cardiovascular: Reports: no symptoms. GI: Reports: no symptoms. Genitourinary: Reports: no symptoms. Musculoskeletal: Reports: no symptoms. Skin: Reports: see HPI, erythema, lesions, rash. Neurological/Psychological: Reports: no symptoms. Hematologic/Endocrine: Reports: no symptoms. Immunologic/Allergic: Reports: no symptoms. All Other Systems: Reviewed and Negative Physical Exam Physical Exam General Appearance: well developed/nourished, alert, awake, anxious, mild distress, obese Head: atraumatic, normal appearance Eyes: Bilateral: normal appearance, PERRL, EOMI. Ears, Nose, Throat: normal pharynx, normal ENT inspection, hearing grossly normal Neck: normal inspection, supple, full range of motion, no midline tenderness Respiratory: normal breath sounds, chest non-tender, no respiratory distress, quiet respiration, lungs clear Cardiovascular: regular rate/rhythm, normal peripheral pulses, norml femoral pulses equa Peripheral Pulses: 4+ carotid (R), 4+ carotid (L) Gastrointestinal: normal bowel sounds, soft, non-tender, no organomegaly Back: normal inspection, normal range of motion, no vertebral tenderness Extremities: limited range of motion, pedal edema, swelling, tenderness Neurologic/Psych: no motor/sensory deficits, awake, alert, oriented x 3, normal mood/affect, 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 Skin: rash Skin Problem Location: lower extremities (right lower leg), erythema about distal half of right lower leg with new erythema about right lateral malleolus wound 4 cm2 Skin Problem Character: erythema, rash, swelling, tenderness, thickening, warm Lymphatic: no anterior cervical christie Diagram Feet, Bilateral: 1) chronic ulcer with surrounding erythema 4 cm2 no discharge noted Progress Differential Diagnosis: abscess/cellulitis, contact dermatitis Plan of Care: Orders Procedure Date/time Status HIGH SENSITIVITY CRP 10/03 1031 Complete WESTERGREN SED RATE 10/03 1031 Complete COMPREHENSIVE METABOLIC PANEL 10/03 1031 Complete CBC WITHOUT DIFFERENTIAL 10/03 1031 Complete Laboratory Tests 10/03/16 1044: Anion Gap 12, Estimated GFR > 60, BUN/Creatinine Ratio 28.3 H, Glucose 97, Calcium 9.4, Total Bilirubin 0.5, AST 29, ALT 52, Alkaline Phosphatase 73, C- React Prot High Sens 5.3 H, Total Protein 6.8, Albumin 4.1, Globulin 2.7, Albumin/Globulin Ratio 1.5, CBC w Diff NO MAN DIFF REQ, RBC 4.47, MCV 88.4, MCH 29.3, RDW 13.1, MPV 8.5, Gran % 72.7, Lymphocytes % 16.6 L, Monocytes % 9.2, Eosinophils % 1.2, Basophils % 0.3, Absolute Granulocytes 6.3, Absolute Lymphocytes 1.4, Absolute Monocytes 0.8 H, Absolute Eosinophils 0.1, Absolute Basophils 0, PUBS MCHC 33.2, ESR Westergren 14 Departure Departure Disposition: HOME OR SELF CARE Condition: Stable Clinical Impression Primary Impression: Cellulitis of right lower leg Referrals: MUNIRA MONTANO MD (PCP/Family) Departure Forms: Customer Survey General Discharge Information Prescriptions: Current Visit Scripts Doxycycline Hyclate (Vibramycin) 1 CAP PO BID #[id number] CAP
[2016-10-03 11:40] VITALS: BP 126/74
[2016-10-03] MEDS ORDERED: VIBRAMYCIN100 MG PO (12:12)
== END 2016-10-03 12:16 ==
LOC: ERH 10:13
PROVIDERS: Emergency Medicine
DX: L03.115 Cellulitis of right lower limb (principal)